=== PATIENT | female | born 1975 | race Caucasian/White ===

== ENCOUNTER → 2024-01-09 14:13 | Outpatient (REF) | payer OTHER, SELFPAY | LOC: RAD 14:13 | PROVIDERS: ATTENDING PHYSICIAN Internal Medicine; FAMILY PHYSICIAN Internal Medicine | DX: J18.9 Pneumonia, unspecified organism (principal) | CPT/HCPCS: 71046 ==

== ENCOUNTER → 2024-07-06 08:19 | Outpatient (REF) | payer OTHER, SELFPAY | LOC: HWRAD 08:19 | PROVIDERS: ATTENDING PHYSICIAN Internal Medicine; FAMILY PHYSICIAN Internal Medicine | DX: K74.60 Unspecified cirrhosis of liver (principal) | CPT/HCPCS: 76700 ==

== ENCOUNTER 2024-08-05 17:32 | Inpatient (IN) | payer OTHER, SELFPAY ==
[2024-08-05] VITALS (9 sets, daily range): BP systolic 97–120; BP diastolic 53–70; BMI 27.0; BMI 26.1
[2024-08-05 13:50] LABS: ALT (SGPT) 28 U/L (0-35); AST (SGOT) 41 U/L (14-36); Albumin 4.7 g/dl (3.5-5.0); Alkaline Phosphatase 82 U/L (38-126); Blood Urea Nitrogen 13 mg/dl (7-17); Calcium 10.1 mg/dl (8.4-10.2); Carbon Dioxide 31 mmol/L (22-30); Chloride 95 mmol/L (98-107); Estimated Creatinine Clearance 96 ml/min; Glucose 216 mg/dl (70-99); Potassium 4.1 mmol/L (3.5-5.1); Sodium 139 mmol/L (135-145); Total Bilirubin 1.3 mg/dl (0.2-1.3); Total Protein 7.9 g/dl (6.3-8.2); eGFR > 60.00
[2024-08-05 13:57] LABS: % Basophils 0.4 % (0-2); % Eosinophils 0.4 % (0-6); % Immature Granulocytes 0.2 % (0-0.5); % Lymphocytes 13.5 % (20.5-51.1); % Monocytes 5.5 % (1.7-9.3); Absolute Lymphocytes 0.6 10^3/uL (1.2-3.4); Absolute Monocytes 0.3 10^3/uL (0.1-0.6); Absolute Neutrophils 3.6 10^3/uL (1.4-6.5); Hemoglobin 12.5 g/dL (12.0-16.0); Mean Corp Hgb Conc. 32.9 g/dL (33.0-37.0); Mean Corpuscular Hgb 30.6 pg (27.0-31.0); Mean Corpuscular Volume 93.1 fL (81.0-99.0); Mean Platelet Volume 10.5 fL (7.4-10.4); Nucleated Red Blood Cells % 0 %; Platelet Count 88 10^3/uL (130-400); Red Blood Cell Count 4.08 10^6/uL (4.20-5.40); Red Cell Dist. Width 15.5 % (11.5-14.5); White Blood Cell Count 4.5 10^3/uL (4.8-10.8)
--- NOTE | 2024-08-05 14:02 | ED.GENMED ---
History of Present Illness
General
Chief Complaint: Breathing Problem
Source: patient
Exam Limitations: none
Time Seen by Provider: 08/05/24 13:28
Nursing documentation reviewed up to this point in time: agreed with
History of Present Illness
History of Present Illness:
pt i a 49 y/o F with h/o congenital heart defect s/p ASD/VSD/transposition surgery
cad with stent
pacer (v tach
restrictive lung disease on triligy and albuterol
all speciaities in [facility]
says she was on a cruise the past week
prior to the cruise she was around someone who wasn't feelin well and presumed to be covid pos
started having dyspnea and fatigue a few day ago while on the cruise
slepeing more, no energy
some fatigue in her legs with walking
cough started today, sometimes wet sometimes dry
no fever/chills/chest pain
she has some abdomial distension bu thas never been told she has ascites; but she does have liver cirrhosis
Past History
Past History
ED Past Medical History: Arrthythmia, NIDDM and Other (Transposition of the great vessels, sick sinus syndrome)
ED Past Surgical History: Cardiac
Social History
Tobacco: Non-smoker
Alcohol: None
Drug: None
Personal: Single
Living: alone
Employment: Employed
Family History
Family History: Other (Noncontributory)
Review of Systems
Review of Systems
Allergies reviewed?: Yes
All Other Systems: Not applicable
Phy Exam
Physical Exam
Physical Exam:
GENERAL: Alert , in no apparent distress
EYE: pupils equal and reactive
NECK: Supple
ENT: o/p clr, mmm.
CARDIAC: Regular rate and rhythm .
LUNGS: diminished, faint crackles bases; mild cough, tachypneic mildly
ABDOMEN: Soft, abdominal distension mildly, no r/g, no cvat, normal bowel sounds
NEUROLOGICAL: Alert and oriented, no focal neuro deficits
SKIN: Warm and dry, skin intact.
MUSCULOSKELETAL: No edema, well perfused. neg lesa's sign
PSYCH: Normal and appropriate interaction.
Scores
Heart Failure Risk
Heart Failure Risk Score: Yes
History of Stroke or TIA: No
History of intubation for respiratory distress: No
Heart rate on ED arrival >/= 110: No
SaO2 <90% on arrival on room air: Yes
HR >/=110 during 3min walk test (or too ill to perform test): Yes
ECG has acute ischemic changes: No
Urea >/=12mmol/L (BUN 33.6mg/dL): No
Serum CO2>/=35mmol/L: No
Troponin I or T elevated to AK Level (0.4mg/dL): No
NT-proBNP >/=5,000ng/L (5,000pg/ml): No
HF Risk Score: 3
Admission Status: HIGH RISK 15.9% Consider SNF treatment or admission to hospital
Course
Orders/Labs/Results
Orders:
Orders
08/05/24 12:56
Electrocardiogram (*1) Urgent
Reason for Study: Shortness of Breath
EKG- Treatment ONCE
08/05/24 13:23
CR Chest - 2 Views Urgent
Comment: hx of restrictive and obstructive lung disease
Reason For Exam: sob for past week
08/05/24 13:29
Complete Blood Count/With Diff Urgent
Comprehensive Metabolic Panel Urgent
08/05/24 13:30
NT-proBNP Urgent
Troponin I Urgent
08/05/24 13:59
Albuterol Nebs [Ventolin Nebules] 2.5 mg INH R NOW STA
08/05/24 14:21
COVID-19 Antigen Urgent
Source: Nasal Swab
Influenza A+B Rapid Molecular Urgent
CHUY Source: Nasal Swab
Specimen Description:
08/05/24 15:11
Furosemide [Lasix] 20 mg IV NOW STA
Abnormal Lab Results
08/05/24
13:29
WBC 4.5 L 10^3/uL
(4.8-10.8)
RBC 4.08 L 10^6/uL
(4.20-5.40)
MCHC 32.9 L g/dL
(33.0-37.0)
RDW 15.5 H %
(11.5-14.5)
Plt Count 88 L 10^3/uL
(130-400)
MPV 10.5 H fL
(7.4-10.4)
Absolute Lymphs (auto) 0.6 L 10^3/uL
(1.2-3.4)
Neutrophils % 80.0 H %
(42.2-75.2)
Lymphocytes % 13.5 L %
(20.5-51.1)
Chloride 95 L mmol/L
(98-107)
Carbon Dioxide 31 H mmol/L
(22-30)
Glucose 216 H mg/dl
(70-99)
AST 41 H U/L
(14-36)
08/05/24 13:29
08/05/24 13:29
Vital Signs
Initial and Last Documented VS:
Initial Vital Signs
Temp Pulse Resp BP Pulse Ox
97.7 F 86 17 110/69 92
08/05/24 13:00 08/05/24 13:00 08/05/24 13:00 08/05/24 13:00 08/05/24 13:00
Last Documented Vital Signs
Temp Pulse Resp BP Pulse Ox
97.7 F 75 17 101/57 93
08/05/24 13:00 08/05/24 15:15 08/05/24 15:15 08/05/24 15:14 08/05/24 15:15
MDM/Problems Addressed
Differential Diagnosis Includes:
chf, pneumonia, covid, less likely PE
MDM/Problems Addressed:
49-year-old female congenital heart defect status post surgery transposition of great vessels, subsequent V. tach episodes requiring a pacer,
Restrictive lung disease presents for 4 or 5 days of shortness of breath somewhat with exertion but also at rest, more sleepy than usual, feeling wiped out, a dry cough that started today. No fever or pleuritic pain. She has never had a DVT or PE.
She has had some weight gain especially in her abdomen. She does have a history of liver disease as well. Patient says that her last echo within the last year showed an EF of 50%. She is on Lasix 20 mg a did not take it today but she has
otherwise been compliant with her meds. She does have a newer diagnosis of restrictive lung disease and her PFTs have been reduced so she is on trilogy and albuterol. Patient says she has tried those meds without relief of her symptoms.
Blood pressure is in the low 100s but hypoxic on room air in the 88-89 range. She normally has a pulse ox of 92 to 93%. She was also tachypneic with diminished breath sounds but no audible wheezing. She has no edema in her legs but she does have
some abdominal fluid that looks like ascites. There is no tenderness there.
She is having a slight dry cough.
Patient is afebrile, her white count is slightly low but with a left shift, her BNP is 800 but normally lies between 2 and 300 on previous lab tests. Her chest x-ray independently reviewed by me shows bilateral interstitial pulmonary opacities
favored to represent pulmonary edema could be viral or atypical pneumonia as well.
Given her O2 requirement and elevation of her BNP it is necessary that she be admitted. I did reach out to her thermometer maker Dr. Rodriguez in [place], he is from [facility] and the number is [phone]
most recent echo april 2023:
ef 65%
rvh severely dilated rv
mild ai
mild MR
mild tr
dr zhao
[facility] transfer line if need to transfer: [phone] if needed
*Critical Care Note
Total Time (30-74mins, 75-104mins- exclusive of procedures): Not Applicable
ED Attending Note
-
Portions of this chart may have been created with voice recognition software.� Occasional wrong word or��sound alike� substitutions may have occurred due to the inherent limitations of voice recognition software.
Discharge Plan
Departure
Patient Disposition: Admit
Date of Disposition: 08/05/24
Time of Disposition: 15:20
Admit to: Telemetry
Presentation/result/management discussed w/ accepting MD/DO: Hospitalist
Condition: Fair
Covid-19: Not Applicable
Discharge Problem:
CHF (congestive heart failure)
Prescriptions:
No Action
metoprolol succinate 25 MG tablet extended release 24 hr
25 mg PO DAILY
losartan 25 mg Tablet
25 mg PO DAILY
cholecalciferol (vitamin D3) 25 mcg (1,000 unit) Tablet
25 mcg PO DAILY
Invokana 100 MG tablet
100 mg PO DAILY
spironolactone 25 mg Tablet
12.5 mg PO DAILY
furosemide [Lasix] 20 mg tablet
20 mg PO DAILY Qty: 5 0RF
sertraline 100 mg tablet
150 mg PO DAILY
Ferrex 150 Forte 150-25-1 mg-mcg-mg capsule
1 cap PO DAILY
buspirone 10 mg tablet
10 mg PO BID
Trelegy Ellipta 100-62.5-25 mcg blister with device
1 inh INHALATION R BID
Emgality Pen 120 mg/mL pen injector
120 mg SC MONTHLY
Referrals:
Jacklyn Headley MD [Family Provider] -
Interventions
Interventions:
*Risk Screen - Suicide Last Done: 08/05/24 12:59
*General Assessment Last Done: 08/05/24 12:59
*Neglect/Abuse Screening Last Done: 08/05/24 12:59
ED- Fall Risk Assessment Last Done: 08/05/24 15:20
*ED COVID-19 Vaccine History Last Done: 08/05/24 12:59
ED- Cardiac Assessment Last Done: 08/05/24 13:18
ED- Pulmonary Assessment Last Done: 08/05/24 13:18
Discharge Date and Time
Print Language: MONTSERRATIAN
[2024-08-05] MEDS: VENTOLIN NEBULES 2.5 MG INH (14:18)
[2024-08-05 14:54] LABS: COVID-19 Antigen Negative (Negative)
[2024-08-05 14:59] LABS: NT-proBNP 839 pg/ml; Troponin I < 0.012 ng/ml
[2024-08-05] MEDS: LASIX 20 MG IV ×2 (15:14→23:04)
--- NOTE | 2024-08-05 15:52 | HPS.HSE ---
Family Physician
-
Family Physician: Jacklyn Headley
Chief Complaint
-
Fatigue, occasional cough, shortness of breath, MARTIN, prior COVID exposure
History of Present Illness
49-year-old female is complaining of a occasionally productive cough with fatigue, exhaustion, dyspnea on exertion. She states on July 15, 2024 she received a COVID booster because she was leaving for a cruise on . She reports on Tuesday
she was advised by a coworker that his was COVID-positive and he was symptomatic due to them being in close proximity she took a COVID test at that time that was negative. She states however 4 days into her trip she started with a sore throat
followed by fatigue, napping all day, and even skipping her excursion while in [facility]. She states her friend who was also on the cruise with her also had URI symptoms with nasal congestion and fatigue. Neither one of them took a COVID test on the
cruise. She reports the fatigue has persisted with sleeping more. She has past medical history of congenital heart defect with transposition of vessels at [facility], history of SSS/status post pacemaker, restrictive lung disease, HTN, chronic CHF, GERD,
adrenalectomy left side secondary to pheochromocytoma, liver cirrhosis from CHF, splenomegaly, chronic thrombocytopenia, migraines, anxiety
Medical History
Past Medical History
Past Medical History: Reports Other
Additional Past Medical History:
SSS status post pacemaker Dr. Dale HILL
Restrictive lung disease
Hx transplant great vessels/CHD-mustard repair
GERD
Liver fibrosis/liver cirrhosis from CHF
Adrenalectomy left-sided secondary to pheochromocytoma
Anxiety
DM2
Migraines
Past Surgical History: Reports Other
Additional Past Surgical History:
Pacemaker�SSS
Stent in IVC, SVC,Transplant great vessels congenital heart disease ASD, VSD repair
Adrenalectomy left secondary to pheochromocytoma
Social History
Tobacco: Non-smoker
Alcohol: None
Drug: None
Personal:
Living: With Family ()
Employment: Disabled
Family History
Family History: Not pertinent
Allergies / Home Medications
Allergies reflects when Allergies were last updated in [employer].
Home Medications with original date entered in [employer]
Allergy/Medication List:
Allergies
Allergy/AdvReac Type Severity Reaction Status Date / Time
codeine Allergy Unknown Verified 08/05/24 13:00
meperidine Allergy Unknown Verified 08/05/24 13:00
pineapple [Pineapple] Allergy Unknown Verified 08/05/24 13:00
NOT.YSARPTUQB98 - Not Allergy Unknown Uncoded 08/05/24 13:00
Converted 38. See Text.
NOT.CYMJPHCFK11 - Not Allergy Unknown Uncoded 08/05/24 13:00
Converted 65. See Text.
Home Medications
metoprolol succinate 25 mg tablet,extended release 24 hr 25 mg PO HS 07/06/11
canagliflozin 100 mg tablet (Invokana) 100 mg PO DAILY 12/20/18
losartan 25 mg tablet 25 mg PO HS 12/20/18
spironolactone 25 mg tablet 12.5 mg PO HS 12/20/22
furosemide 20 mg tablet (Lasix) 20 mg PO DAILY #5 tabs 04/05/23
buspirone 10 mg tablet 10 mg PO BIDPRN PRN anxiety 08/05/24
mqabwqnplx-ohkysfirhwjyc-ffevekio 50 mg-300 mg-40 mg capsule (Fioricet) 1 cap PO Q4HPRN PRN headache 08/05/24
fluticasone fur. 100 mcg-umeclid 62.5 mcg-vilant 25 mcg inhalat.powder (Trelegy Ellipta) 1 inh inhalation R HS 08/05/24
galcanezumab-gnlm 120 mg/mL subcutaneous pen injector (Emgality Pen) 120 mg SC MONTHLY 08/05/24
iron polysacch cplx 150 mg iron-vit B12 25 mcg-folic acid 1 mg capsule (Ferrex) 1 cap PO HS 08/05/24
metformin 500 mg tablet,extended release 24 hr 500 mg PO BID 08/05/24
omeprazole 40 mg capsule,delayed release 40 mg PO BID 08/05/24
ondansetron HCl 8 mg tablet 8 mg PO BIDPRN PRN nausea/vomiting 08/05/24
oxycodone-acetaminophen 5 mg-325 mg tablet (Percocet) 1 tab PO Q6HPRN PRN moderate pain 08/05/24
sertraline 100 mg tablet 100 mg PO HS 08/05/24
sucralfate 1 gram tablet 1 g PO BIDPRN PRN stomach issues 08/05/24
Review of Systems
-
History Source: Patient and Family ( at bedside)
A 12 point ROS was completed and negative except as noted: Yes
Constitutional: Reports Fatigue; Denies Fever or Chills
EENT: Reports Sore Throat (1 week ago); Denies Runny Nose
Respiratory: Reports Cough (Occasionally productive) and Trouble Breathing (MARTIN)
Cardiac: Denies Chest Pain, Diaphoresis, Palpitations or Syncope
Abdomen/GI: Denies Abdominal Pain, Nausea, Vomiting, Diarrhea, Constipated or Bloody Stools
: Denies Dysuria, Frequency, Flank Pain, Incontinence, Difficulty Voiding or Urgency
Musculoskeletal: Denies Joint Pain or Edema
Skin: Denies Itching or Rash
Neurological: Reports Weakness (Generalized secondary to fatigue); Denies Dizzy or Headache
Endocrine: Reports No Symptoms
Hematologic/Lymphatic: Reports No Symptoms
Psych: Reports Calm
Physical Exam
Vital Signs
Vital Signs
Temp Pulse Resp BP Pulse Ox
97.7 F 75 17 101/57 93
08/05/24 13:00 08/05/24 15:15 08/05/24 15:15 08/05/24 15:14 08/05/24 15:15
Physical Exam
General: No Pain, Fever or Chills
HEENT: NormoCephalic, Anicteric, Moist mucous membranes, PERRLA, Rentz Conjunctivae, No Ptosis and Oxygen (2 L nasal cannula)
Respiratory: Clear; No Wheezes or Rales
Cardiac: S1/S2 and Regular Rhythm; No Murmur, Rub or Gallop
Breast: Deferred by me
GI: Soft, Non Tender, Non Distended and Normal Bowel Sounds
Genito-urinary: Deferred by me
Musculoskeletal: No Clubbing, No Cyanosis and No Edema
Skin: Warm and Dry; No Rash
Neuro: AO x 3, No Motor Deficits, Nonfocal/grossly intact, Cranial Nerves Intact and No Sensory Deficits; No Slurred Speech, Facial Droop, Tremors or Sedated
Psych: Calm
Laboratory Results
-
08/05/24 13:29
08/05/24 13:29
Laboratory Results
Total Bilirubin 1.3 mg/dl (0.2-1.3) 08/05/24 13:29
AST 41 U/L (14-36) H 08/05/24 13:29
ALT 28 U/L (0-35) 08/05/24 13:29
Alkaline Phosphatase 82 U/L (38-126) 08/05/24 13:29
Troponin I < 0.012 ng/ml 08/05/24 13:30
Data Reviewed
-
Diagnostic Radiology: Report Reviewed by me
Lab Data: Labs Reviewed by me
Impression/Plan
-
Impression/plan:
Admit to telemetry
#Acute hypoxic resp insuff 2/2 to pneumonia likely viral versus bacterial
Recent COVID exposure week of , *received COVID-vaccine booster on 07/15/2024*
COVID-negative
-Will check ProCal, lactic acid, sputum culture
-Check Legionella, Strep antigen
-IV Rocephin, IV Zithromax
-Tylenol as needed
-Follow CBC, BMP
Patient requesting Diflucan because she is getting antibiotics is worried about yeast infection. We advised patient we will currently hold on Diflucan we will give her some probiotics and monitor for any yeast development
CXR bilateral interstitial pulmonary opacities favored to represent pulm edema although atypical infection/viral pneumonia could be considered
Reviewed patient's CT 07/26/2023 on portal showed left lung interstitial edema with narrowing of left pleural veins history pulm stenosis cardiac fibrosis
#Hypotension/HTN
BP 101/57
Hold losartan 25 mg at bedtime, metoprolol succinate 25 mg at bedtime due to hypotension
#Hx chronic CHF
-I/O, daily weights
-Continue Lasix 20 mg daily
-Hold spironolactone
-Consult [facility] cardiology
Last echo 04/22/2023 EF 65%, stent superior system venous baffle stent in the inferior systemic venous baffle the inferior vena cava is small and collapsible suggesting inferior baffle stenosis unlikely. Pacemaker wire seen the left ventricle.
Paradoxical septal motion due to right ventricular pressure overload
#Hx transplant great vessels/CHD-mustard repair
Follows with Dr. Michael HILL
#Acute on chronic thrombocytopenia/chronic hepatic cirrhosis from CHF, chronic splenomegaly
Plt 88 appears near baseline
-Follow CBC
#SSS status post pacemaker Dr. Dale HILL
Pacemaker interrogation 80% pacing most of time otherwise no abnormalities
#Restrictive lung disease
Patient reports her typical O2 is 92-95% on room air
-Continue Trelegy Ellipta or equivalent
#DM 2
Accu-Cheks with SSI, check HgbA1c
-Hold metformin 500 mg twice daily
-Continue Invokana 100 mg daily
#GERD hx
-Continue omeprazole 40 mg twice daily, sucralfate as needed
#Adrenalectomy left-sided secondary to pheochromocytoma
#Migraine Hx-no current headache
-Patient takes Fioricet as needed, Emgality 120 mg subcu monthly taken on 07/22/2024
#Anxiety
-Continue Zoloft 100 mg at bedtime, patient has not started BuSpar 10 mg twice daily as needed yet
DVT prophylaxis
Subcu Lovenox
Full code
[2024-08-05 17:04] LABS: Lactic Acid 2.7 mmol/L (0.7-2.0)
--- NOTE | 2024-08-05 17:07 | W.PN.UPDATE ---
Update Note
Progress Note Update
This is an addendum to the H&P written by Enedelia Butler on 08/05/2024.� Patient seen and examined independently with [employer].
49-year-old female past medical history of congenital heart defect status post ASD/VSD/transposition surgery, CAD with stent, sick sinus syndrome with pacemaker, restrictive lung disease, mild asthma, anxiety/depression, migraines, diabetes,
presenting with shortness of breath, cough, fatigue, prior sore throat and prior chills.� Patient just returned from a cruise prior during which she was exposed to a coworker who's was positive for COVID.�
On examination patient has bilateral crackles at the bases.� Very minimal lower extreme edema.� Overall patient does not appear volume overloaded.� COVID is negative.� Cardiac BNP of 800.� Chest x-ray shows bilateral interstitial pulmonary opacities
possibly pulm edema versus atypical infection/viral pneumonia.
Clinically more consistent with viral/atypical pneumonia.� Check sputum culture, strep antigen, Legionella, procalcitonin.� Ceftriaxone/azithromycin.� Patient given 20 IV Lasix for pulmonary edema, resume 20 Lasix daily.� Cardiology was consulted.
[2024-08-05 17:19] LABS: Procalcitonin < 0.05 ng/ml (0.0-0.25)
--- NOTE | 2024-08-05 18:02 | CON.CAR ---
Consultation
Consultation Request
Date/Time Consultation Requested: 08/05/2024 at 1545
Date/Time Consultation Performed: 08/05/2024 at 1800
Requesting Provider: Shakila Garcia
Performing Provider: Dr. Satrhak Rodriguez
Reason for Consultation: Shortness of breath
Medical History
-
Chief Complaint: Shortness of breath, weakness
History of Present Illness:
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 She is required IVC and SVC stents for stenosis, presumably at the anastomosis with the baffles. She
has a single-chamber atrial pacemaker possibly implanted in the anatomic left atrium. She has a history of heart failure and is on furosemide 20 mg a day but has been relatively stable. She also has a history of pheochromocytoma that was resected.
She has cirrhosis. She is still employed and is . She has some memory issues. She may have had a stroke in [employer]. She recently went on a cruise and had some viral symptoms. COVID testing was negative. On the cruise she may
have increased salt intake. She has been increasingly weak and short of breath. She is followed by Dr. Gómez Hunter at [facility], . She presented to [facility] with these complaints, has a cough but no fever or chills, chest x-ray
suggested vascular congestion, pneumonia not excluded, lactic acid level was 2.7. She is on metformin. AST is 41, troponin is undetectable and proBNP is 839, baseline roughly 200. She states she had an echo within a year.
Past Medical History
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
portal thrombosis, diabetes, diabetic neuropathy,)
Past Surgical History: Cardiac (Mustard repair age 3 for transposition stents and IVC and SVC for stenosis in baffles) and Other (Pheochromocytoma resection)
Social History
Tobacco: Non-Smoker
Alcohol: None
Drug: None
Personal:
Living: With Family
Employment: Employed
Family History
Family History: Reviewed & Not Pertinent
Allergies / Home Medications
Allergy/AdvReac Type Severity Reaction Status Date / Time
codeine Allergy Unknown Verified 08/05/24 13:00
meperidine Allergy Unknown Verified 08/05/24 13:00
pineapple [Pineapple] Allergy Unknown Verified 08/05/24 13:00
NOT.[id number] - Not Allergy Unknown Uncoded 08/05/24 13:00
Converted 38. See Text.
NOT.[id number] - Not Allergy Unknown Uncoded 08/05/24 13:00
Converted 65. See Text.
�Medication �Instructions �Recorded �Confirmed �Type
metoprolol succinate 25 mg 25 mg PO HS 07/06/11 08/05/24 History
tablet,extended release 24 hr
canagliflozin 100 mg tablet 100 mg PO DAILY 12/20/18 08/05/24 History
(Invokana)
losartan 25 mg tablet 25 mg PO HS 12/20/18 08/05/24 History
spironolactone 25 mg tablet 12.5 mg PO HS 12/20/22 08/05/24 History
furosemide 20 mg tablet (Lasix) 20 mg PO DAILY #5 tabs 04/05/23 08/05/24 Rx
buspirone 10 mg tablet 10 mg PO BIDPRN PRN anxiety 08/05/24 08/05/24 History
xxigqdlcni-tuefkggziilhe-gmoaeccq 1 cap PO Q4HPRN PRN headache 08/05/24 08/05/24 History
50 mg-300 mg-40 mg capsule
(Fioricet)
fluticasone fur. 100 mcg-umeclid 1 inh inhalation R HS 08/05/24 08/05/24 History
62.5 mcg-vilant 25 mcg
inhalat.powder (Trelegy Ellipta)
galcanezumab-gnlm 120 mg/mL 120 mg SC MONTHLY 08/05/24 08/05/24 History
subcutaneous pen injector
(Emgality Pen)
iron polysacch cplx 150 mg 1 cap PO HS 08/05/24 08/05/24 History
iron-vit B12 25 mcg-folic acid 1
mg capsule (Ferrex)
metformin 500 mg tablet,extended 500 mg PO BID 08/05/24 08/05/24 History
release 24 hr
omeprazole 40 mg capsule,delayed 40 mg PO BID 08/05/24 08/05/24 History
release
ondansetron HCl 8 mg tablet 8 mg PO BIDPRN PRN nausea/vomiting 08/05/24 08/05/24 History
oxycodone-acetaminophen 5 mg-325 1 tab PO Q6HPRN PRN moderate pain 08/05/24 08/05/24 History
mg tablet (Percocet)
sertraline 100 mg tablet 100 mg PO HS 08/05/24 08/05/24 History
sucralfate 1 gram tablet 1 g PO BIDPRN PRN stomach issues 08/05/24 08/05/24 History
Review of Systems
-
All other systems: Negative unless noted
Physical Exam
Vital Signs
Temp Pulse Resp BP Pulse Ox
36.5 C 83 20 98/70 93
08/05/24 13:00 08/05/24 16:44 08/05/24 16:44 08/05/24 17:00 08/05/24 17:15
Lab Results
08/05/24 13:29
08/05/24 13:29
Troponin I < 0.012 ng/ml 08/05/24 13:30
Wzc-R-Offzctmxhba Pept 839 pg/ml 08/05/24 13:30
Physical Exam
General: No Apparent Distress
HEENT: Normocephalic
Respiratory: Other (Diminished)
Cardiac: S1/S2 and Other (No obvious murmurs, JVD not elevated, no obvious RV lift)
GI: Non Distended and Normal Bowel Sounds
Musculoskeletal: No Cyanosis and No Edema
Skin: Warm and Dry
Neuro: AO x 3 (Occasional trouble word finding)
Psych: Calm
Impression / Plan
-
Impression:
Dyspnea, presumed acute heart failure with morphologic right ventricle serving as systemic ventricle
Recent URI, COVID-negative
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
ASD/VSD/pulmonary hypertension/pulmonic stenosis by records
Pacemaker
Type 2 diabetes
Migraines
Cognitive impairment
History of stroke
Diabetic neuropathy
History of pheochromocytoma s/p resection
History of portal vein thrombosis
Hepatic fibrosis/cirrhosis?
Elevated right hemidiaphragm
SVC and IVC stents for presumed anastomotic stenosis
Plan:
She presents with what is most likely heart failure in the setting of mustard repair for transposition of the great arteries. It is conceivable she has pneumonia, but I think this may be less likely. It could be that her recent cruise with
increased salt intake is contributing as well.
She has a mild lactic acidosis, is on Invokana, also takes metformin.
We will review old records and contact her primary medical i d sales.
IV Lasix
Check echo
Metformin and Invokana on hold.
Data Reviewed
-
EKG: Tracing Personally Visualized and interpreted (Atrial paced with prolonged AV conduction, RVH, right axis deviation, ST and T wave changes)
Radiology: Image Personally Visualized and interpreted (Chest x-ray with cardiomegaly, presumed vena caval stents, single-chamber pacemaker, presumably atrial lead, vascular congestion)
Labs: Labs Reviewed by me (White count 4.5, hemoglobin 12.5, BUN and creatinine 13 and 0.7, glucose 216, proBNP 839, undetectable troponin, prior BNP 212 and 352)
Old Records: Reviewed
[2024-08-05] MEDS: ZITHROMAX INFUSION 250 IV (18:27)
--- NOTE | 2024-08-05 18:32 | PTCARENOTE ---
Pt arrived from the ER around 174. Pt ambulated into the room with steady gait. 2L O2 NC upon arrival. Pt completely alert and oriented x3. Denies any pain. Tolerating diet well. Lungs clear but diminished. Pt is SOB on exertion. Placed on tele,
hear rate regular. No edema. Pt is currently resting in bed. All needs are meet at this time. Call quintero is within reach.
[2024-08-05] MEDS: STERILE WATER FOR INJECTION 10 ML IV (22:37)
[2024-08-05] MEDS: ROCEPHIN 1000 MG IV (22:38)
[2024-08-05] MEDS: ZOLOFT 100 MG PO (22:46)
[2024-08-05] MEDS: KCL 40 MEQ PO (22:48)
[2024-08-05] MEDS: VISBIOME 1 CAP PO (22:49)
[2024-08-05] MEDS: TOPROL XL 25 MG PO (22:55)
[2024-08-05] MEDS: ALDACTONE 12.5 MG PO (23:04)
[2024-08-05] MEDS: NON-FORMULARY ITEM 1 INH INH (23:18)
--- NOTE | 2024-08-05 23:20 | PTCARENOTE ---
Dr. Randall Hunter Jig Grinder [phone]
Benjamin Mcneal Pulmonolgist [phone]
[2024-08-05] MEDS: PROTONIX 40 MG PO (23:51)
[2024-08-06] VITALS (7 sets, daily range): BP systolic 90–109; BP diastolic 48–74; PULSE 70–83; O2SAT 95–97; BMI 25.9
[2024-08-06] MEDS: LASIX 20 MG IV (08:02)
[2024-08-06] MEDS: KCL 20 MEQ PO (08:02)
[2024-08-06] MEDS: VISBIOME 2 CAP PO (08:02)
[2024-08-06] MEDS: FARXIGA 10 MG PO (08:02)
[2024-08-06] MEDS: PROTONIX 40 MG PO (08:03)
[2024-08-06 08:26] LABS: % Basophils 0.4 % (0-2); % Eosinophils 0.6 % (0-6); % Immature Granulocytes 0.2 % (0-0.5); % Monocytes 8.8 % (1.7-9.3); Absolute Lymphocytes 0.8 10^3/uL (1.2-3.4); Absolute Monocytes 0.4 10^3/uL (0.1-0.6); Absolute Neutrophils 3.4 10^3/uL (1.4-6.5); Hematocrit 34.6 % (37.0-47.0); Hemoglobin 11.7 g/dL (12.0-16.0); Mean Corp Hgb Conc. 33.8 g/dL (33.0-37.0); Mean Corpuscular Hgb 32.3 pg (27.0-31.0); Mean Corpuscular Volume 95.6 fL (81.0-99.0); Mean Platelet Volume 10.5 fL (7.4-10.4); Nucleated Red Blood Cells % 0 %; Platelet Count 69 10^3/uL (130-400); Red Blood Cell Count 3.62 10^6/uL (4.20-5.40); Red Cell Dist. Width 15.3 % (11.5-14.5); White Blood Cell Count 4.7 10^3/uL (4.8-10.8)
[2024-08-06 09:31] LABS: ALT (SGPT) 25 U/L (0-35); AST (SGOT) 37 U/L (14-36); Albumin 4.3 g/dl (3.5-5.0); Alkaline Phosphatase 73 U/L (38-126); Blood Urea Nitrogen 14 mg/dl (7-17); Calcium 9.2 mg/dl (8.4-10.2); Carbon Dioxide 26 mmol/L (22-30); Chloride 97 mmol/L (98-107); Estimated Creatinine Clearance 112 ml/min; Glucose 147 mg/dl (70-99); Potassium 4.1 mmol/L (3.5-5.1); Sodium 138 mmol/L (135-145); Total Bilirubin 1.3 mg/dl (0.2-1.3); Total Protein 7.2 g/dl (6.3-8.2); eGFR > 60.00
[2024-08-06] MEDS: TYLENOL 650 MG PO (10:02)
--- NOTE | 2024-08-06 10:38 | W.PN.HOSP.TC ---
Addendum entered and electronically signed by Kane Hu MD 08/06/24 16:04:
Seen and examined. On 3 L nasal cannula. States that she is feeling better but would like to go home. Endorses that she was working with physical therapy dropped down to 80% O2 saturations on room air. I informed her it has not safe oxygen level
for discharge. I told her how would she walk out of here she states that it would be a short distance to her car
NAD, resting comfortably in bed
Scleral anicteric
Moist mucous membranes
JVD positive
Bibasilar crackles
[id number] S1-S2 no murmurs
Soft nontender nondistended bowel sounds active
No peripheral pitting edema
Moves extremities spontaneously
AAOx3
Acute on chronic hypoxemic respiratory failure, does not use O2 at home. Suspect related to heart failure exacerbation versus multifactorial with heart failure exacerbation and acute viral syndrome. Therefore at this time IV Lasix.
COVID-negative. Supportive care in terms of viral infection. Wean O2 as tolerated to room air.
Acute on chronic HFpEF exacerbation, continue IV Lasix for at least next 24 hours. Monitor urinary output. Daily weights. Keep K greater than 4 magnesium greater than 2. Repeat 2D echo ordered to assess EF. NYHA classification 2-3.
Hypotension otherwise usually hypertensive. Hold antihypertensives at this time. Monitor mental status. Continue IV Lasix. Would apply a holding parameters
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 Will continue to monitor closely.
Lactic acidosis hold metformin and Invokana. Repeat level.
Original Note:
Today's Communication/Plan
-
Discontinued Rocephin and azithromycin as it appeared that infection was unlikely considering the low WBC and normal procalcitonin. Appreciate cards evaluation. We will continue to wean patient off of nasal cannula oxygen down to her baseline at
room air. Awaiting echocardiogram.
Assessment / Plan
Assessment / Plan
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 tach episodes requiring and a pacer. She presented to the emergency department 4 to 5 days after experiencing
shortness of breath on exertion but also at rest. She was more sleepy than usual feeling wiped out and had a dry cough that started prior to her presentation. She has never had a DVT or PE. She had some weight gain especially in her abdomen. She
has a history of liver disease as well. Her last echo showed an EF of 50%.
Assessment/Plan:
-Acute HF on Chronic HFmrEF: Stable
-ASD/VSD/pulmonary hypertension/pulmonic stenosis by record
-SVC and IVC stents for presumed anastomotic stenosis
Patient has a history of transposition of the great vessels s/p mustard atrial baffle repair
Pacemaker status
Slightly elevated proBNP
Patient currently on 3 L nasal cannula oxygen and gets fatigued quickly when she gets out of bed. She does not use oxygen supplementation normally. We will continue to try to wean her down to room air as that is her baseline.
Will get magnesium levels and continue to follow potassium. Goal potassium level greater than 4 and magnesium greater than 2.
Unable to discern I/O's as outputs were not measured today.
Weight continues to decrease and is 75.024 kg today
Continue IV Lasix for 24 hours then transition her back to her oral Lasix dose in anticipation of possible upcoming discharge
Monitor creatinine levels. Creatinine currently at 0.6 on 08/06/2024
Repeat echo ordered
Appreciate cardiology consult. They recommend that upon discharge the patient will require close monitoring with serial echoes to assess for right ventricular failure moving forward.
Recommend outpatient follow-up with cardiology
PT eval for activities of daily living
-Recent URI, COVID-Negative: Resolved
Most recent chest x-ray conducted on 08/05/2024 showed bilateral interstitial pulmonary opacities favored to represent pulmonary edema. An atypical infection/viral pneumonia could also be considered.
Discontinued Rocephin and azithromycin. Low procalcitonin and white blood cells indicates that it is unlikely that there is an infectious process occurring.
�Cognitive impairment
� History of stroke
� Type 2 diabetes -glucose was 216 on admission and is 147 on 08/06/2024
� Diabetic neuropathy
� History of pheochromocytoma s/p resection
� History of portal vein thrombosis
� Elevated right hemidiaphragm
DVT prophylaxis: Enoxaparin sodium
Ulcer prophylaxis: Pantoprazole
Full CODE STATUS
Anticipated Discharge: 24 - 48 hours
Subjective/Interval History
-
Date of Service: August 06, 2024
Met with patient at the bedside. She is calm and cooperative in discussion. Shared a brief history of her chronic medical conditions. She believes that she is at or approaching her baseline even though she continues to receive oxygen
supplementation via nasal cannula. She offers no complaints at the present time except for a mild headache for which she hopes to receive Tylenol for. She is usually able to sleep for 3 hours lying down before having to wake up and adjust position
due to breathlessness. She could not sleep on her left side as it was painful for her to try to do so. She also had neck pain that she attributes that pain to her neck position while sleeping last night.
Objective Data
-
Labs:
Laboratory Results
08/06/24
07:27
WBC 4.7 L
Hgb 11.7 L
Hct 34.6 L
Plt Count 69 L D
Sodium 138
Potassium 4.1
Chloride 97 L
Carbon Dioxide 26
BUN 14
Creatinine 0.6
Glucose 147 H
Calcium 9.2
Total Bilirubin 1.3
AST 37 H
ALT 25
Alkaline Phosphatase 73
Vital Signs:
Vital Signs
Temp Pulse Resp BP Pulse Ox
97.6 F 70 14 101/49 98
08/06/24 07:19 08/06/24 07:19 08/06/24 07:19 08/06/24 07:19 08/06/24 09:40
I&O
09/22/24 09/23/24 09/24/24
06:59 06:59 06:59
Intake Total 120 / 120
Balance 120 / 120
Review of Systems
-
History Source: Patient
All other systems: Reviewed and negative
Constitutional: Reports Other (Headache)
EENT: Reports No Symptoms Reported
Respiratory: Reports No Symptoms
Cardiac: Reports No Symptoms
Abdomen/GI: Reports No Symptoms
Breast: Reports No Symptoms
Genitourinary: Reports No Symptoms
Musculoskeletal: Reports No Symptoms
Skin: Reports No Symptoms
Neuro: Reports No Symptoms
Endocrine: Reports No Symptoms
Hematologic / Lymphatic: Reports No Symptoms
Allergy / Immunology: Reports No Symptoms
Physical Exam
-
General: Well Developed, Well Nourished, No Apparent Distress and Comfortable
HEENT: Normocephalic and Atraumatic
Respiratory: Clear to Auscultation and Non Labored Respirations
Cardiac: Regular Rhythm and S1/S2
Breast: Deferred by me
GI: Soft, Nontender, Nondistended and Normal Bowel Sounds
Musculoskeletal: No Clubbing, No Cyanosis and No Edema
Skin: Warm, Dry and Normal Turgor
Neuro: Awake, Alert, Oriented and AO x 3
Psych: Calm and Intact Judgement/Insight
--- NOTE | 2024-08-06 11:20 | W.PN.CARDCBS ---
Addendum entered and electronically signed by Sunny Gusman DO 08/06/24 12:47:
I saw and evaluated the patient. I reviewed the resident�s note and agree with findings and plan as documented in the resident�s note.
Plan:
Likely multifactorial dyspnea which may include viral illness given recent contacts.
Slightly increased pBNP on presentation and just went on a cruise.
She is clinically improved. She may be just above her dry wt. Would continue IV lasix for 24 more hrs and then likely transition to oral lasix next 24 hrs and have pt follow up with her business technology analyst as outpt
Her physiologic RV is her systemic ventricle and has previously known to be enlarged by echo here in 2007.
Cr is stable.
Requested outside records
Wean off O2.
Echo pending.
Original Note:
Today's Communication / Plan
-
Check echo
Continue Lasix
Strict I's and O's, daily weights
Wean oxygen as tolerated
Monitor creatinine while on Lasix.
Impression / Plan
-
Assessment:
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
while on cruise. Reports compliance with 20 mg Lasix, recent contacts with COVID-positive and URI positive patient's. CXR showed bilateral interstitial pulmonary opacities concerning for pulmonary edema with considerations of atypical
infection/viral pneumonia. Patient was admitted and cardiology was consulted for further evaluation and management.
Impression:
Presentation with dyspnea on exertion and b/l upper extremity swelling
Mild lactic acidosis
Recent URI, COVID-negative
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
ASD/VSD/pulmonary hypertension/pulmonic stenosis by records
Pacemaker
Type 2 diabetes
Migraines
Cognitive impairment
History of stroke
Diabetic neuropathy
History of pheochromocytoma s/p resection
History of portal vein thrombosis
Hepatic fibrosis/cirrhosis?
Elevated right hemidiaphragm
SVC and IVC stents for presumed anastomotic stenosis
Plan:
Presentation with dyspnea on exertion and bilateral mild upper extremity swelling.
-Most likely acute on chronic HFpEF due to fluid overload given no strict salt restrictions while on cruise; ProBNP 839 at presentation (212 and 352 historically).
-CXR 08/05 concerning for pulmonary edema, pneumonia less likely.
-There may be some component of RV failure which serves as patient's systemic ventricle given previous Mustard atrial baffle repair.
-Swelling improved with 20 mg IV Lasix.
-Currently on 3L O2 NC sat 98%, desaturates to 80% on exertion.
-Repeat echo.
-Continue IV Lasix at current dose.
-Follow creatinine, currently 0.6.
-Fluid restriction.
-Strict I's and O's.
-Weight trending down,78kg>>>75kg, monitor daily weights.
-Continue to wean oxygen as tolerated.
-Obtain past records from primary business technology analyst.
-Given that this patient's RV has served as systemic ventricle for 48 years, upon discharge patient requires close monitoring with serial echo to assess for RV failure moving forward.
Mild lactic acidosis
-Patient on Invokana and metformin on presentation.
-Continue to hold metformin and Invokana.
Progress Note - Associate Project Manager
Subjective
Date of Service: August 06, 2024
Patient seen and examined comfortably lying on her bed. She is currently on 3L O2 NC saturating at 98% at rest, however desaturated to 80% on exertion. She does not complain of any chest pain or significant SOB. States that she is feeling much
better than she felt when she first arrived, was not able to remove her ring from her finger initially but can do it today.
Allergies
Allergy/AdvReac Type Severity Reaction Status Date / Time
codeine Allergy Unknown Verified 08/05/24 13:00
meperidine Allergy Unknown Verified 08/05/24 13:00
pineapple [Pineapple] Allergy Unknown Verified 08/05/24 13:00
NOT.XZNCFOUXK59 - Not Allergy Unknown Uncoded 08/05/24 13:00
Converted 38. See Text.
NOT.XVTHOLOJN02 - Not Allergy Unknown Uncoded 08/05/24 13:00
Converted 65. See Text.
Home Medications
metoprolol succinate 25 mg tablet,extended release 24 hr 25 mg PO HS Blood Pressure 07/06/11
canagliflozin 100 mg tablet (Invokana) 100 mg PO DAILY Diabetes 12/20/18
losartan 25 mg tablet 25 mg PO HS Blood Pressure 12/20/18
spironolactone 25 mg tablet 12.5 mg PO HS Fluid Retention/Swelling 12/20/22
furosemide 20 mg tablet (Lasix) 20 mg PO DAILY #5 tabs 04/05/23
buspirone 10 mg tablet 10 mg PO BIDPRN PRN anxiety 08/05/24
omqjtxtwwi-tsdhwapkikmtl-jutlcmds 50 mg-300 mg-40 mg capsule (Fioricet) 1 cap PO Q4HPRN PRN headache 08/05/24
fluticasone fur. 100 mcg-umeclid 62.5 mcg-vilant 25 mcg inhalat.powder (Trelegy Ellipta) 1 inh inhalation R HS Lung/Breathing Issues 08/05/24
galcanezumab-gnlm 120 mg/mL subcutaneous pen injector (Emgality Pen) 120 mg SC MONTHLY migraine 08/05/24
iron polysacch cplx 150 mg iron-vit B12 25 mcg-folic acid 1 mg capsule (Ferrex) 1 cap PO HS Supplement 08/05/24
metformin 500 mg tablet,extended release 24 hr 500 mg PO BID Diabetes 08/05/24
omeprazole 40 mg capsule,delayed release 40 mg PO BID Gastrointestinal Issue 08/05/24
ondansetron HCl 8 mg tablet 8 mg PO BIDPRN PRN nausea/vomiting 08/05/24
oxycodone-acetaminophen 5 mg-325 mg tablet (Percocet) 1 tab PO Q6HPRN PRN moderate pain 08/05/24
sertraline 100 mg tablet 100 mg PO HS Depression 08/05/24
sucralfate 1 gram tablet 1 g PO BIDPRN PRN stomach issues 08/05/24
Objective
Labs:
08/06/24 07:27
08/06/24 07:27
Labs
Hgb 11.7 g/dL (12.0-16.0) L 08/06/24 07:27
Hct 34.6 % (37.0-47.0) L 08/06/24 07:27
Plt Count 69 10^3/uL (130-400) L D 08/06/24 07:27
Sodium 138 mmol/L (135-145) 08/06/24 07:27
Potassium 4.1 mmol/L (3.5-5.1) 08/06/24 07:27
BUN 14 mg/dl (7-17) 08/06/24 07:27
Creatinine 0.6 mg/dL (0.6-1.0) 08/06/24 07:27
Glucose 147 mg/dl (70-99) H 08/06/24 07:27
Troponins
08/05/24
13:30
Troponin I < 0.012
Vital Signs and I&O:
Vital Signs
Temp Pulse Resp BP Pulse Ox
97.6 F 70 14 101/49 98
08/06/24 07:19 08/06/24 07:19 08/06/24 07:19 08/06/24 07:19 08/06/24 09:40
Vital Signs
Temp Pulse Resp BP Pulse Ox
97.6 F 70 14 101/49 98
08/06/24 07:19 08/06/24 07:19 08/06/24 07:19 08/06/24 07:19 08/06/24 09:40
Intake & Output
08/04/24 08/05/24 08/06/24 08/07/24
06:59 06:59 06:59 06:59
Intake Total 120 / 120
Balance 120 / 120
Physical Exam
Physical Exam
General: Awake, alert and oriented x3, not in distress and holds appropriate conversation.
HEENT: No active discharge, ecchymosis or bruising, moist lips, tongue and mucous membrane.
Eyes: No discharge or red conjunctiva, no nystagmus, pupils are reactive and equal
Neck:Supple, no JVD no bruit no goiter.
Respiratory: Normal AP contour and diameter, normal chest wall movement, normal respiratory effort, no respiratory distress,
Lungs: Good air entry bilaterally, no wheezing or rhonchi, no rales or crackles
Heart: S1, S2 regular, normal rate, no added sound.
Gastrointestinal: Positive bowel sounds, soft, nontender, no guarding or rigidity or organomegaly
Extremities: No pitting edema, good peripheral pulses, good range of motion
Skin: Warm and dry, no ulceration, normal color.
Neurological: Awake, alert and oriented x3, cranial nerve II-XII grossly intact, speech clear and comprehensive, good muscle tone, normal sensory and motor function
Psychiatric: Normal mood, normal affect, normal judgement and insight and normal mentation
--- NOTE | 2024-08-06 12:06 | CM ---
Reviewed chart, met with patient to obtain information for assessment. Patient stated that she lives with her spouse in a single, two story home with two steps to enter. Patient described herself as independent with dressing, bathing, toileting, and
all other ADLs. 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 She can drive and can transport herself to her appointments and does all of her own shopping. Patient denied any DME. She is currently on o2.
Patient stated that she has never had VN services .
She has never been to a SNF.
Patient has a prescription plan and uses, [facility] in [place] for all of her medications.
Her PCP is, Jacklyn Headley.
Patient stated that she feels she is at her baseline level of functioning and would like to return home when stable. She is hoping not to have any o2 needs.
Plan: Case management will continue to follow and assist with discharge planning. Home when cleared for discharge.
--- NOTE | 2024-08-06 12:09 | PTOTSP ---
pt currently requires supervision to no assistance to complete simple ADLs, functional transfers, ambulation. issued and reviewed energy conservation handout. pt appreciative. no acute OT needs identified at this time, will sign off.
[2024-08-06] MEDS: NON-FORMULARY ITEM 1 INH INH (19:39)
[2024-08-06] MEDS: ALDACTONE 12.5 MG PO (21:18)
[2024-08-06] MEDS: ZOLOFT 100 MG PO (21:24)
[2024-08-06] MEDS: TOPROL XL 25 MG PO (21:25)
[2024-08-07 03:30] VITALS: BP 104/46
[2024-08-07 03:31] VITALS: BMI 25.9
[2024-08-07 06:58] VITALS: BP 91/45
--- NOTE | 2024-08-07 07:08 | W.PN.HOSP.TC ---
Addendum entered and electronically signed by Kane Hu MD 08/07/24 12:33:
Seen and examined. On 3 L nasal cannula. States that she is feeling better but would like to go home. Endorses that she was working with physical therapy dropped down to 80% O2 saturations on room air. I informed her it has not safe oxygen level
for discharge. I told her how would she walk out of here she states that it would be a short distance to her car
NAD, resting comfortably in bed
Scleral anicteric
Moist mucous membranes
JVD positive
Bibasilar crackles
[id number] S1-S2 no murmurs
Soft nontender nondistended bowel sounds active
No peripheral pitting edema
Moves extremities spontaneously
AAOx3
Acute on chronic hypoxemic respiratory failure, does not use O2 at home. Suspect related to heart failure exacerbation versus multifactorial with heart failure exacerbation and acute viral syndrome. Therefore at this time IV Lasix.
COVID-negative. Supportive care in terms of viral infection. Wean O2 as tolerated to room air. Check cxr and consider pulm
Acute on chronic HFpEF exacerbation, continue IV Lasix for at least next 24 hours. Monitor urinary output. Daily weights. Keep K greater than 4 magnesium greater than 2. Repeat 2D echo ordered to assess EF. NYHA classification 2-3.
Hypotension otherwise usually hypertensive. Hold antihypertensives at this time. Monitor mental status. Continue IV Lasix. Would apply a holding parameters
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 Will continue to monitor closely..
Original Note:
Today's Communication/Plan
-
Patient is currently at 95% oxygen saturation on a 2 L nasal cannula. We will continue to wean her down to room air which is her normal baseline. Patient was unable to be weaned down past 2L yesterday, will repeat CXR if patient remains hypoxic.
May consider pulmonology consult depending on x-ray results and persistent hypoxia.
Assessment / Plan
Assessment / Plan
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 tach episodes requiring and a pacer. She presented to the emergency department 4 to 5 days after experiencing
shortness of breath on exertion but also at rest. She was more sleepy than usual feeling wiped out and had a dry cough that started prior to her presentation. She has never had a DVT or PE. She had some weight gain especially in her abdomen. She
has a history of liver disease as well. Her last echo showed an EF of 50%.
Assessment/Plan:
-Acute HF on Chronic HFpEF (NYHA classification 2-3): Stable
-ASD/VSD/pulmonary hypertension/pulmonic stenosis by record
-SVC and IVC stents for presumed anastomotic stenosis
Patient has a history of transposition of the great vessels s/p mustard atrial baffle repair
Pacemaker status
Slightly elevated proBNP
Patient currently on 2 L nasal cannula oxygen and gets fatigued quickly when she gets out of bed. She does not use oxygen supplementation normally. We will continue to try to wean her down to room air as that is her baseline.
Will get magnesium levels and continue to follow potassium. Goal potassium level greater than 4 and magnesium greater than 2.
Unable to discern I/O's as outputs were not measured today.
Weight continues to decrease and is 75.024 kg today
IV Lasix was held on 08/07/2024 due to hypotension of 96/45
If patient remains hypoxic on room air we will repeat a chest x-ray and consider pulmonology consult.
Monitor creatinine levels. Creatinine currently at 0.6 on 08/07/2024
Repeat echo ordered
Appreciate cardiology consult. They recommend that upon discharge the patient will require close monitoring with serial echoes to assess for right ventricular failure moving forward.
Recommend outpatient follow-up with cardiology
PT eval for activities of daily living
-Recent URI, COVID-Negative: Resolved
Most recent chest x-ray conducted on 08/05/2024 showed bilateral interstitial pulmonary opacities favored to represent pulmonary edema. An atypical infection/viral pneumonia could also be considered.
Discontinued Rocephin and azithromycin. Low procalcitonin and white blood cells indicates that it is unlikely that there is an infectious process occurring.
�Cognitive impairment
� History of stroke
� Type 2 diabetes -glucose was 216 on admission and is 147 on 08/07/2024
� Diabetic neuropathy
Metformin and Invokana held due to lactic acidosis. Repeat level before restarting
� History of pheochromocytoma s/p resection
� History of portal vein thrombosis
� Elevated right hemidiaphragm
DVT prophylaxis: Enoxaparin sodium
Ulcer prophylaxis: Pantoprazole
Full CODE STATUS
Anticipated Discharge: 24 - 48 hours
Subjective/Interval History
-
Date of Service: August 07, 2024
Met with patient at the bedside. Overall, she is doing well and offers no complaints at the present time. She hopes to go home soon but is aware that she is not ready to leave yet as she does not require nasal cannula oxygen to go about her daily
activities.
Objective Data
-
Labs:
Labs
08/07/24 06:51
08/07/24 06:51
Vital Signs:
Vital Signs
Temp Pulse Resp BP Pulse Ox
97.7 F 72 16 91/45 95
08/07/24 06:58 08/07/24 06:58 08/07/24 06:58 08/07/24 06:58 08/07/24 06:58
I&O
08/06/24 08/07/24 08/08/24
06:59 06:59 06:59
Intake Total 120 / 120 820 / 820
Balance 120 / 120 820 / 820
Review of Systems
-
History Source: Patient
All other systems: Reviewed and negative
Constitutional: Reports No Symptoms
EENT: Reports No Symptoms Reported
Respiratory: Reports Other (Fatigue during ambulation and at rest without nasal cannula)
Cardiac: Reports No Symptoms
Abdomen/GI: Reports No Symptoms
Breast: Reports No Symptoms
Genitourinary: Reports No Symptoms
Musculoskeletal: Reports No Symptoms
Skin: Reports No Symptoms
Neuro: Reports Other (Fatigue and drowsiness while off nasal cannula)
Endocrine: Reports No Symptoms
Hematologic / Lymphatic: Reports No Symptoms
Allergy / Immunology: Reports No Symptoms
Physical Exam
-
General: Well Developed, Well Nourished, No Apparent Distress and Comfortable
HEENT: Normocephalic, Atraumatic and Moist Mucous Membranes
Respiratory: Clear to Auscultation
Cardiac: Regular Rhythm and S1/S2
GI: Soft, Nontender, Nondistended and Normal Bowel Sounds
Skin: Warm and Dry
Neuro: Awake, Alert and Oriented
Psych: Calm
[2024-08-07 07:26] LABS: % Basophils 0.2 % (0-2); % Eosinophils 1.2 % (0-6); % Immature Granulocytes 0.2 % (0-0.5); % Lymphocytes 17.8 % (20.5-51.1); % Monocytes 8.7 % (1.7-9.3); % Neutrophils 71.9 % (42.2-75.2); Absolute Eosinophils 0.1 10^3/uL (0-0.7); Absolute Lymphocytes 0.8 10^3/uL (1.2-3.4); Absolute Monocytes 0.4 10^3/uL (0.1-0.6); Absolute Neutrophils 3.1 10^3/uL (1.4-6.5); Hematocrit 34.1 % (37.0-47.0); Hemoglobin 11.3 g/dL (12.0-16.0); Mean Corp Hgb Conc. 33.1 g/dL (33.0-37.0); Mean Corpuscular Hgb 30.9 pg (27.0-31.0); Mean Corpuscular Volume 93.2 fL (81.0-99.0); Mean Platelet Volume 10.5 fL (7.4-10.4); Nucleated Red Blood Cells % 0 %; Platelet Count 79 10^3/uL (130-400); Red Blood Cell Count 3.66 10^6/uL (4.20-5.40); Red Cell Dist. Width 15.1 % (11.5-14.5); White Blood Cell Count 4.3 10^3/uL (4.8-10.8)
[2024-08-07 07:55] LABS: Lactic Acid 0.7 mmol/L (0.7-2.0)
[2024-08-07] MEDS: PROTONIX 40 MG PO (08:34)
[2024-08-07] MEDS: KCL 20 MEQ PO (08:34)
[2024-08-07] MEDS: VISBIOME 2 CAP PO (08:34)
[2024-08-07] MEDS: FARXIGA 10 MG PO (08:34)
[2024-08-07 08:36] LABS: ALT (SGPT) 25 U/L (0-35); AST (SGOT) 41 U/L (14-36); Albumin 4.2 g/dl (3.5-5.0); Alkaline Phosphatase 76 U/L (38-126); Blood Urea Nitrogen 15 mg/dl (7-17); Carbon Dioxide 31 mmol/L (22-30); Chloride 96 mmol/L (98-107); Estimated Creatinine Clearance 112 ml/min; Glucose 147 mg/dl (70-99); Potassium 4.2 mmol/L (3.5-5.1); Sodium 140 mmol/L (135-145); Total Bilirubin 1.2 mg/dl (0.2-1.3); Total Protein 7.3 g/dl (6.3-8.2); eGFR > 60.00
[2024-08-07] MEDS: TYLENOL 650 MG PO (09:05)
[2024-08-07] MEDS: LASIX IV (09:16)
--- NOTE | 2024-08-07 10:54 | W.PN.CARDCBS ---
Addendum entered and electronically signed by Sunny Gusamn DO 08/07/24 18:26:
I saw and examined the patient.
The Tooling Supervisor's note was reviewed and I agree with the note.
Comment:
Plan:
She does not appear largely volume overloaded
Echo with preserved EF
Consider pulm evaluation given known lung disease as per pt and she is now requiring O2.
Echo pending.
Transition to oral lasix. She did not get lasix this am due to hypotension but ordered for this afternoon
Discussed with nursing, family at bedside and primary service.
Original Note:
Today's Communication / Plan
-
Transition to oral Lasix
Strict I's and O's with daily weights
Wean oxygen as tolerated
Impression / Plan
-
Assessment:
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
while on cruise. Reports compliance with 20 mg Lasix, recent contacts with COVID-positive and URI positive patient's. CXR showed bilateral interstitial pulmonary opacities concerning for pulmonary edema with considerations of atypical
infection/viral pneumonia. Patient was admitted and cardiology was consulted for further evaluation and management.
Impression:
Dyspnea on exertion
upper extremity swelling resolved.
Mild lactic acidosis
Resolved
Recent URI, COVID-negative
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
ASD/VSD/pulmonary hypertension/pulmonic stenosis by records
Pacemaker
Type 2 diabetes
Migraines
Cognitive impairment
History of stroke
Diabetic neuropathy
History of pheochromocytoma s/p resection
History of portal vein thrombosis
Hepatic fibrosis/cirrhosis?
Elevated right hemidiaphragm
SVC and IVC stents for presumed anastomotic stenosis
Plan:
Dyspnea on exertion
-Likely due to HFpEF exacerbation from chronic fluid overload now worsened by acute fluid retention from increased salt intake while on cruise.
-ProBNP 839 at presentation (212 and 352 historically).
-CXR 08/05 concerning for pulmonary edema, acute viral syndrome likely an extra player.
-There may be some component of RV failure which serves as patient's systemic ventricle given previous Mustard atrial baffle repair.
-Echo pending.
-Upper extremity swelling resolved with 20 mg IV Lasix.
-Consider transitioning to 40 mg oral Lasix moving forward.
-Creatinine back to baseline.
-Strict I's and O's.
-Weight trending down,78 kg>>> 74.8 kg, monitor daily weights.
-Continue to wean oxygen as tolerated.
Mild lactic acidosis
-Resolved.
-May resume metformin and Invokana.
Progress Note - Senior Marketing Associate
Subjective
Date of Service: August 07, 2024
Patient seen and examined with family at bedside on 2L O2 NC. She reports desaturating to 80% O2 while walking with physical therapy on room air. She states she is feeling improved feeling okay while she is not doing any activities. She denies
chest pain and palpitations. She does not use oxygen at home and stated that she has never tested positive to COVID since his symptoms started.
Current medications: Lovenox 40 mg daily, IV Lasix 20 mg daily, spironolactone 12.5 mg daily, metoprolol 25 mg daily.
BP 110/53, pulse 74, respiratory 18, afebrile, O2 sat 97% on 2L O2 NC, weight 74.8 kg, trending down, patient is nonoliguric, neck exam unremarkable, lungs are clear, regular rate and rhythm without murmur, JVD, normal carotids, abdominal exam
remains benign, extremities without clubbing, cyanosis or edema, patient conversant.
Hemoglobin 11.3, platelets 79, BUN 15 and creatinine 0.6.
Objective
Labs:
08/07/24 06:51
08/07/24 06:51
Labs
Hgb 11.3 g/dL (12.0-16.0) L 08/07/24 06:51
Hct 34.1 % (37.0-47.0) L 08/07/24 06:51
Plt Count 79 10^3/uL (130-400) L 08/07/24 06:51
Sodium 140 mmol/L (135-145) 08/07/24 06:51
Potassium 4.2 mmol/L (3.5-5.1) 08/07/24 06:51
BUN 15 mg/dl (7-17) 08/07/24 06:51
Creatinine 0.6 mg/dL (0.6-1.0) 08/07/24 06:51
Glucose 147 mg/dl (70-99) H 08/07/24 06:51
Troponins
08/05/24
13:30
Troponin I < 0.012
Vital Signs and I&O:
Vital Signs
Temp Pulse Resp BP Pulse Ox
97.7 F 72 16 96/45 95
08/07/24 06:58 08/07/24 06:58 08/07/24 06:58 08/07/24 09:16 08/07/24 06:58
Vital Signs
Temp Pulse Resp BP Pulse Ox
97.7 F 72 16 96/45 95
08/07/24 06:58 08/07/24 06:58 08/07/24 06:58 08/07/24 09:16 08/07/24 06:58
Intake & Output
08/05/24 08/06/24 08/07/24 08/08/24
06:59 06:59 06:59 06:59
Intake Total 120 / 120 820 / 820
Balance 120 / 120 820 / 820
Physical Exam
Physical Exam
General: Awake, alert and oriented x3, not in distress and holds appropriate conversation.
HEENT: No active discharge, ecchymosis or bruising, moist lips, tongue and mucous membrane.
Eyes: No discharge or red conjunctiva, no nystagmus, pupils are reactive and equal
Neck:Supple, no JVD no bruit no goiter.
Respiratory: Normal AP contour and diameter, normal chest wall movement, normal respiratory effort, no respiratory distress.
Lungs: Good air entry bilaterally, no wheezing or rhonchi, no rales or crackles
Heart: S1, S2 regular, normal rate, no added sound.
Gastrointestinal: Positive bowel sounds, soft, nontender, no guarding or rigidity or organomegaly
Extremities: No pitting edema, good peripheral pulses, good range of motion
Skin: Warm and dry, no ulceration, normal color.
Neurological: Awake, alert and oriented x3, cranial nerve II-XII grossly intact, speech clear and comprehensive, good muscle tone, normal sensory and motor function
Psychiatric: Normal mood, normal affect, normal judgement and insight and normal mentation
[2024-08-07 12:05] VITALS: BP 110/53
[2024-08-07 15:19] VITALS: BP 110/63
[2024-08-07] MEDS: LASIX 20 MG PO (16:18)
[2024-08-07 19:15] VITALS: BP 108/56
[2024-08-07] MEDS: NON-FORMULARY ITEM 1 INH INH (20:01)
[2024-08-07] MEDS: TOPROL XL PO (21:59)
[2024-08-07] MEDS: ALDACTONE 12.5 MG PO (22:02)
[2024-08-07] MEDS: ZOLOFT 100 MG PO (22:02)
[2024-08-07 23:45] VITALS: BP 107/56
[2024-08-08 03:45] VITALS: BP 117/69
[2024-08-08 06:00] VITALS: BMI 25.9
[2024-08-08 06:35] LABS: % Basophils 0.2 % (0-2); % Eosinophils 0.5 % (0-6); % Immature Granulocytes 0.2 % (0-0.5); % Lymphocytes 18.3 % (20.5-51.1); % Monocytes 8.6 % (1.7-9.3); % Neutrophils 72.2 % (42.2-75.2); Absolute Lymphocytes 0.8 10^3/uL (1.2-3.4); Absolute Monocytes 0.4 10^3/uL (0.1-0.6); Hematocrit 34.2 % (37.0-47.0); Hemoglobin 11.5 g/dL (12.0-16.0); Mean Corp Hgb Conc. 33.6 g/dL (33.0-37.0); Mean Corpuscular Hgb 31.9 pg (27.0-31.0); Mean Corpuscular Volume 94.7 fL (81.0-99.0); Mean Platelet Volume 10.2 fL (7.4-10.4); Nucleated Red Blood Cells % 0 %; Platelet Count 65 10^3/uL (130-400); Red Blood Cell Count 3.61 10^6/uL (4.20-5.40); White Blood Cell Count 4.1 10^3/uL (4.8-10.8)
[2024-08-08 07:00] VITALS: BP 99/63
--- NOTE | 2024-08-08 07:07 | W.PN.HOSP.TC ---
Today's Communication/Plan
-
We continue to try to wean her down back to room air but unfortunately when removed from her 2 L nasal cannula oxygen she desaturates below 88%. Chest x-ray showed progression of pulmonary edema. Pulmonology consulted. IV Lasix replaced with 20
mg of oral Lasix.
Assessment / Plan
Assessment / Plan
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 tach episodes requiring and a pacer. She presented to the emergency department 4 to 5 days after experiencing
shortness of breath on exertion but also at rest. She was more sleepy than usual feeling wiped out and had a dry cough that started prior to her presentation. She has never had a DVT or PE. She had some weight gain especially in her abdomen. She
has a history of liver disease as well. Her last echo showed an EF of 50%.
Assessment/Plan:
-Acute HF on Chronic HFpEF (NYHA classification 2-3): Stable
-ASD/VSD/pulmonary hypertension/pulmonic stenosis by record
-SVC and IVC stents for presumed anastomotic stenosis
Patient has a history of transposition of the great vessels s/p mustard atrial baffle repair
Pacemaker status
Slightly elevated proBNP
Patient currently on 2 L nasal cannula oxygen and gets fatigued quickly when she gets out of bed. She does not use oxygen supplementation normally. We will continue to try to wean her down to room air as that is her baseline.
We conducted a ambulation test today on room air and unfortunately she consistently desaturated below 88%. She was able to complete the walk without stopping.
Pulmonology consult
Chest x-ray conducted on 08/08/2024 showed mild interval progression of pulmonary edema. Suspected small bilateral pleural effusions are unchanged.
Will get magnesium levels and continue to follow potassium. Goal potassium level greater than 4 and magnesium greater than 2. - Mg 1.9 on 08/08/24 so additional magnesium given.
Unable to discern I/O's as outputs were not measured today.
Weight continues to decrease and is 75.024 kg today
IV Lasix was held on 08/07/2024 due to hypotension of 96/45
If patient remains hypoxic on room air we will repeat a chest x-ray and consider pulmonology consult.
Monitor creatinine levels. Creatinine currently at 0.6 on 08/07/2024
Repeat echo ordered
Appreciate cardiology consult. They recommend that upon discharge the patient will require close monitoring with serial echoes to assess for right ventricular failure moving forward.
Recommend outpatient follow-up with cardiology
PT eval for activities of daily living
-Recent URI, COVID-Negative: Resolved
Most recent chest x-ray conducted on 08/05/2024 showed bilateral interstitial pulmonary opacities favored to represent pulmonary edema. An atypical infection/viral pneumonia could also be considered.
Discontinued Rocephin and azithromycin. Low procalcitonin and white blood cells indicates that it is unlikely that there is an infectious process occurring.
�Cognitive impairment
� History of stroke
� Type 2 diabetes -glucose was 216 on admission and is 147 on 08/07/2024
� Diabetic neuropathy
Metformin and Invokana held due to lactic acidosis. Repeat level before restarting
� History of pheochromocytoma s/p resection
� History of portal vein thrombosis
� Elevated right hemidiaphragm
DVT prophylaxis: Enoxaparin sodium
Ulcer prophylaxis: Pantoprazole
Full CODE STATUS
Anticipated Discharge: 24 - 48 hours
Subjective/Interval History
-
Date of Service: August 08, 2024
Met with patient at the bedside. She is calm and cooperative in discussion and hopes to be discharged soon but understands that as long as she is unable to maintain proper oxygen saturation - that it would be unwise for her to go home. Ambulation
test conducted on room air showed consistent desaturation below 88% but the patient was able to ambulate without stopping.
Objective Data
-
Labs:
Laboratory Results
08/08/24
06:19
WBC 4.1 L
Hgb 11.5 L
Hct 34.2 L
Plt Count 65 L
Sodium Pending
Potassium Pending
Chloride Pending
Carbon Dioxide Pending
BUN Pending
Creatinine Pending
Glucose Pending
Calcium Pending
Total Bilirubin Pending
AST Pending
ALT Pending
Alkaline Phosphatase Pending
Vital Signs:
Vital Signs
Temp Pulse Resp BP Pulse Ox
97.6 F 74 17 117/69 93
08/08/24 03:45 08/08/24 03:45 08/08/24 03:45 08/08/24 03:45 08/08/24 03:45
I&O
08/07/24 08/08/24 08/09/24
06:59 06:59 06:59
Intake Total 820 / 820 960 / 960
Balance 820 / 820 960 / 960
Review of Systems
-
History Source: Patient
Constitutional: Reports No Symptoms
EENT: Reports No Symptoms Reported
Respiratory: Reports No Symptoms
Cardiac: Reports No Symptoms
Abdomen/GI: Reports No Symptoms
Breast: Reports No Symptoms
Genitourinary: Reports No Symptoms
Musculoskeletal: Reports No Symptoms
Skin: Reports No Symptoms
Neuro: Reports No Symptoms
Endocrine: Reports No Symptoms
Hematologic / Lymphatic: Reports No Symptoms
Physical Exam
-
General: Well Developed, Well Nourished, No Apparent Distress and Comfortable
HEENT: Normocephalic, Atraumatic and Moist Mucous Membranes
Respiratory: Clear to Auscultation
Cardiac: Regular Rhythm and S1/S2
Breast: Deferred by me
GI: Soft, Nontender, Nondistended and Normal Bowel Sounds
Genito-urinary: Deferred by me
Musculoskeletal: No Clubbing, No Cyanosis and No Edema
Skin: Warm and Dry
Neuro: Awake, Alert, Oriented and AO x 3
Psych: Calm
[2024-08-08 07:08] LABS: ALT (SGPT) 25 U/L (0-35); AST (SGOT) 37 U/L (14-36); Albumin 4.2 g/dl (3.5-5.0); Alkaline Phosphatase 87 U/L (38-126); Blood Urea Nitrogen 13 mg/dl (7-17); Calcium 8.9 mg/dl (8.4-10.2); Carbon Dioxide 32 mmol/L (22-30); Chloride 97 mmol/L (98-107); Estimated Creatinine Clearance 112 ml/min; Glucose 141 mg/dl (70-99); Magnesium 1.9 mg/dl (1.6-2.3); Sodium 140 mmol/L (135-145); Total Bilirubin 1.3 mg/dl (0.2-1.3); Total Protein 7.4 g/dl (6.3-8.2); eGFR > 60.00
[2024-08-08] MEDS: LASIX 20 MG PO (09:03)
--- NOTE | 2024-08-08 09:03 | W.PN.CARDCBS ---
Addendum entered and electronically signed by Júnior Jha MD 08/08/24 14:42:
I saw and evaluated the patient. I reviewed the resident�s note and agree with findings and plan as documented in the resident�s note.
Briefly, 49-year-old woman past medical history of congenital heart disease with transposition of the great vessels status post mustard procedure who presents with dyspnea and edema concerning for decompensated heart failure
No cardiovascular complaints at present, no significant dyspnea
With gentle IV diuresis has noted improvement in her edema
Overall appears to be relatively well compensated on exam however, she is still requiring supplemental oxygen today
Weight is still at the upper end of what she considers her dry weight (155-165lbs), 165 lbs today
Renal function stable
Would recommend additional IV Lasix dose today and wean oxygen as able
Tentative plan to transition to higher dose of oral Lasix tomorrow, would discharge on 40 mg daily
Cont home spironolactone and SGLT2
Rest per Dr. Zeng
Original Note:
Today's Communication / Plan
-
IV Lasix once
Continue oral Lasix
Wean off oxygen as tolerated
Impression / Plan
-
Assessment:
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
while on [place]. Reports compliance with 20 mg Lasix, recent contacts with COVID-positive and URI positive patient's. CXR showed bilateral interstitial pulmonary opacities concerning for pulmonary edema with considerations of atypical
infection/viral pneumonia. Patient was admitted and cardiology was consulted for further evaluation and management.
Impression:
Dyspnea on exertion
upper extremity swelling resolved.
Mild lactic acidosis
Resolved
Recent URI, COVID-negative
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
ASD/VSD/pulmonary hypertension/pulmonic stenosis by records
Pacemaker
Type 2 diabetes
Migraines
Cognitive impairment
History of stroke
Diabetic neuropathy
History of pheochromocytoma s/p resection
History of portal vein thrombosis
Hepatic fibrosis/cirrhosis?
Elevated right hemidiaphragm
SVC and IVC stents for presumed anastomotic stenosis
Plan:
Dyspnea on exertion
-Subjectively, she does not look volume overloaded. However, her CXR is suspicious for bilateral pleural effusions and pulmonary edema. Her recent echo also shows enlarged and hypertrophied systemic ventricle (RV) with moderately increased
pulmonary pressures compared to previous echo 04/21/2023. Her proBNP is slightly elevated at 839 from historic baseline 352.
-Symptoms most likely due to HFpEF exacerbation from chronic fluid overload now worsened by acute fluid retention from increased salt intake while on cruise.
-Currently on 1.5L O2 NC saturating at 96%.
-Reports baseline weight 70 to 75 kg; patient currently around baseline weight.
-Creatinine 0.6, will give 1 dose of IV Lasix 20 mg. Continue p.o. Lasix 20 mg.
-Wean off oxygen as tolerated, if patient is able to be weaned off, she could be discharged on 20 mg p.o. with instruction to take extra dose if daily weight increase by 3 LB or weekly with increased by 5 LB.
Data:
CXR 08/08/2024:
Mild interval progression of pulmonary edema. Suspected small bilateral pleural effusions are unchanged.
CXR 08/05/2024:
Bilateral interstitial pulmonary opacities favored to represent pulmonary edema. An atypical infection/viral pneumonia could also be considered.
Echo 08/07/2024:
The left ventricle is sub pulmonic, and dilated. There is mild left ventricular hypertrophy with a pacing wire. LVEF is 60-65%. Paradoxical septal motion is present. Diastolic function indeterminate. Right ventricular hypertrophy. Enlarged right
ventricular size. Preserved right ventricular function. The right ventricle is systemic.Mildly dilated right atrium. No mitral regurgitation. Mitral valve is sub pulmonary. There is no aortic stenosis. Trace aortic regurgitation is seen. The aortic
valve arises anteriorly from the systemic right ventricle. Moderate tricuspid regurgitation. Estimated pulmonary artery pressure of 75-80 mmHg assuming a right atrial pressure of 3 mmHg. The tricuspid valve is
systemic. No evidence of flow acceleration within the pulmonary venous baffle. There is a stent in the superior systemic venous baffle. There is a stent in the inferior systemic venous baffle also. No obvious baffle leak is seen on color Doppler.
Compared to previous echo 04/21/23, the pulmonary artery pressures have increased from 55 to 75 mmHg. Otherwise no significant change.
Progress Note - Telegrapher Agent
Subjective
Date of Service: August 08, 2024
Patient seen and examined, in no acute cardiopulmonary distress. Reports being winded on ambulation while off oxygen. Discussed with patient that we will try to wean her off oxygen before she leaves the hospital. Will give 1 extra dose of 20 mg
IV Lasix and continue 20 mg p.o. Lasix.
Objective
Labs:
08/08/24 06:19
08/08/24 06:19
Labs
Hgb 11.5 g/dL (12.0-16.0) L 08/08/24 06:19
Hct 34.2 % (37.0-47.0) L 08/08/24 06:19
Plt Count 65 10^3/uL (130-400) L 08/08/24 06:19
Sodium 140 mmol/L (135-145) 08/08/24 06:19
Potassium 4.0 mmol/L (3.5-5.1) 08/08/24 06:19
BUN 13 mg/dl (7-17) 08/08/24 06:19
Creatinine 0.6 mg/dL (0.6-1.0) 08/08/24 06:19
Glucose 141 mg/dl (70-99) H 08/08/24 06:19
Troponins
08/05/24
13:30
Troponin I < 0.012
Vital Signs and I&O:
Vital Signs
Temp Pulse Resp BP Pulse Ox
98.0 F 70 16 99/63 96
08/08/24 07:00 08/08/24 07:00 08/08/24 07:00 08/08/24 07:00 08/08/24 07:00
Vital Signs
Temp Pulse Resp BP Pulse Ox
98.0 F 70 16 99/63 96
08/08/24 07:00 08/08/24 07:00 08/08/24 07:00 08/08/24 07:00 08/08/24 07:00
Intake & Output
08/06/24 08/07/24 08/08/24 08/09/24
06:59 06:59 06:59 06:59
Intake Total 120 / 120 820 / 820 960 / 960
Balance 120 / 120 820 / 820 960 / 960
Physical Exam
Physical Exam
General: Awake, alert and oriented x3, not in distress and holds appropriate conversation.
HEENT: No active discharge, ecchymosis or bruising, moist lips, tongue and mucous membrane.
Eyes: No discharge or red conjunctiva, no nystagmus, pupils are reactive and equal
Neck:Supple, no JVD no bruit no goiter.
Respiratory: Normal AP contour and diameter, normal chest wall movement, normal respiratory effort, no respiratory distress.
Lungs: Good air entry bilaterally, no wheezing or rhonchi, no rales or crackles
Heart: S1, S2 regular, normal rate, no added sound.
Gastrointestinal: Positive bowel sounds, soft, nontender, no guarding or rigidity or organomegaly
Extremities: No pitting edema, good peripheral pulses, good range of motion
Skin: Warm and dry, no ulceration, normal color.
Neurological: Awake, alert and oriented x3, cranial nerve II-XII grossly intact, speech clear and comprehensive, good muscle tone, normal sensory and motor function
Psychiatric: Normal mood, normal affect, normal judgement and insight and normal mentation
[2024-08-08] MEDS: FARXIGA 10 MG PO (09:07)
[2024-08-08] MEDS: VISBIOME 2 CAP PO (09:07)
[2024-08-08] MEDS: PROTONIX 40 MG PO (09:07)
[2024-08-08] MEDS: KCL 20 MEQ PO (09:08)
[2024-08-08 11:00] VITALS: BP 118/66; BP 120/73; PULSE 79; O2SAT 96
--- NOTE | 2024-08-08 11:17 | CON.PUL ---
Consultation
Consultation Request
Date/Time Consultation Requested: 08/08/24
Date/Time Consultation Performed: 08/08/24
Performing Provider: Tray
Reason for Consultation: SOB
Medical History
-
History of Present Illness:
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
productive cough, fatigue, exhaustion, dyspnea on exertion. This may have been triggered by recent episode of COVID-positive illness but she self tested at home and was negative. She has noticed more persistent fatigue and has been sleeping more.
She follows with pulmonary at [facility] since childhood. 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 She has not previously required oxygen in the past, but she has noted occasional
desaturation with exertion. She is currently maintained on Trelegy and albuterol rescue inhaler. Last PFT reviewed was in June 2023 with moderate to severe restrictive lung disease (TLC 61%) and moderate diffusion impairment (DLCO 48%). She was
due to follow-up this coming August.
.
Past Medical History
Past Medical History: Other (see list below)
Social History
Tobacco: Non-smoker
Alcohol: None
Drug: None
Family History
Family History: Reviewed & Not Pertinent
Allergies / Home Medications
Allergies
Allergy/AdvReac Type Severity Reaction Status Date / Time
codeine Allergy Unknown Verified 08/05/24 13:00
meperidine Allergy Unknown Verified 08/05/24 13:00
pineapple [Pineapple] Allergy Unknown Verified 08/05/24 13:00
NOT.[id number] - Not Allergy Unknown Uncoded 08/05/24 13:00
Converted 38. See Text.
NOT.[id number] - Not Allergy Unknown Uncoded 08/05/24 13:00
Converted 65. See Text.
Home Medications
�Medication �Instructions �Recorded �Confirmed �Last Taken �Type
metoprolol succinate 25 mg 25 mg PO HS Blood Pressure 07/06/11 08/05/24 08/04/24 History
tablet,extended release 24 hr
canagliflozin 100 mg tablet 100 mg PO DAILY Diabetes 12/20/18 08/05/24 08/04/24 History
(Invokana)
losartan 25 mg tablet 25 mg PO HS Blood Pressure 12/20/18 08/05/24 08/04/24 History
spironolactone 25 mg tablet 12.5 mg PO HS Fluid 12/20/22 08/05/24 08/04/24 History
Retention/Swelling
furosemide 20 mg tablet (Lasix) 20 mg PO DAILY #5 tabs 04/05/23 08/05/24 08/04/24 Rx
buspirone 10 mg tablet 10 mg PO BIDPRN PRN anxiety 08/05/24 08/05/24 Unknown History
vvoorkfmnr-bvxfzkkxgppds-tekwcccm 1 cap PO Q4HPRN PRN headache 08/05/24 08/05/24 Unknown History
50 mg-300 mg-40 mg capsule
(Fioricet)
fluticasone fur. 100 mcg-umeclid 1 inh inhalation R HS 08/05/24 08/05/24 08/04/24 History
62.5 mcg-vilant 25 mcg Lung/Breathing Issues
inhalat.powder (Trelegy Ellipta)
galcanezumab-gnlm 120 mg/mL 120 mg SC MONTHLY migraine 08/05/24 08/05/24 07/22/24 History
subcutaneous pen injector
(Emgality Pen)
iron polysacch cplx 150 mg 1 cap PO HS Supplement 08/05/24 08/05/24 08/04/24 History
iron-vit B12 25 mcg-folic acid 1
mg capsule (Ferrex)
metformin 500 mg tablet,extended 500 mg PO BID Diabetes 08/05/24 08/05/24 08/04/24 History
release 24 hr
omeprazole 40 mg capsule,delayed 40 mg PO BID Gastrointestinal Issue 08/05/24 08/05/2424 History
release
ondansetron HCl 8 mg tablet 8 mg PO BIDPRN PRN nausea/vomiting 08/05/24 08/05/24 Unknown History
oxycodone-acetaminophen 5 mg-325 1 tab PO Q6HPRN PRN moderate pain 08/05/24 08/05/24 Unknown History
mg tablet (Percocet)
sertraline 100 mg tablet 100 mg PO HS Depression 08/05/24 08/05/24 08/04/24 History
sucralfate 1 gram tablet 1 g PO BIDPRN PRN stomach issues 08/05/24 08/05/24 Unknown History
Review of Systems
-
History Source: Patient
All other systems: Negative unless noted
Vitals / Labs / Diagnostic Testing
Vital Signs
Temp Pulse Resp BP Pulse Ox
98.0 F 71 16 105/54 96
08/08/24 07:00 08/08/24 09:03 08/08/24 07:00 08/08/24 09:03 08/08/24 07:00
Lab Data
08/08/24 06:19
08/08/24 06:19
Microbiology
08/05/24 17:31 Urine Legionella Urinary Antigen - Final
Negative for Legionella pneumophila Serogroup 1 antigen.
A negative result does not rule out the possiblity of
Legionella infection due to other serogroups or species of
Legionella. Clinical correlation is recommended.
08/05/24 17:31 Urine Streptococcus pneumoniae Antigen (M - Final
Negative for Streptococcus pneumoniae antigen.
A negative result does not exclude infection with
Streptococcus pneumoniae. Clinical correlation is
recommended.
08/05/24 14:21 Nasal Swab Influenza Types A & B ([facility]AN[facility]) - Final
Negative for Influenza A & B, NAAT
Negative results must be combined with clinical observations
and patient history.
Nucleic Acid Amplification test (NAAT)performed on the
[employer] platform.
Diagnostic Testing:
Physical Exam
-
HEENT: Normocephalic, Anicteric and Moist Mucous Membranes
Cardiovascular: S1/S2 and Regular Rhythm
Respiratory: Clear (overall decreased) and Non-Labored Respirations
GI: Soft, Non Distended and Non Tender
Neurology: Awake, Alert, Oriented and No Motor Deficits
Skin: Warm, Dry and Good Color
General: Comfortable and Other (NAD)
Assessment
-
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
productive cough, fatigue, exhaustion, dyspnea on exertion. This may have been triggered by recent episode of COVID-positive illness but she self tested at home and was negative. She has noticed more persistent fatigue and has been sleeping more.
We are consulted for evaluation.
Dyspnea on exertion, acute on chronic
Exertional Hypoxemia
Fatigue/EDS
Mild lactic acidosis
Recent URI, COVID-negative
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
ASD/VSD/pulmonary hypertension/pulmonic stenosis by records
s/p Pacemaker
Type 2 diabetes
Migraines
Cognitive impairment
History of stroke
Diabetic neuropathy
History of pheochromocytoma s/p resection
History of portal vein thrombosis
Hepatic fibrosis/cirrhosis?
Chronic elevated right hemidiaphragm
SVC and IVC stents for presumed anastomotic stenosis
Plan
No oxygen was needed on admission, currently saturating 96% on RA
There is note of desaturation with ambulation which is relatively new
Home O2 evaluation eventually
Prior history of lung disease is noted--
She follows with pulmonary at [facility] since childhood.
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
She has not previously required oxygen in the past, but she has noted occasional desaturation with exertion.
She is currently maintained on Trelegy and albuterol rescue inhaler.
Last PFT reviewed was in June 2023 with moderate to severe restrictive lung disease (TLC 61%) and moderate diffusion impairment (DLCO 48%)
Suspect patient has acute on chronic dyspnea from RLD
Prior testing was moderately severe, we will repeat PFT while inpatient, last testing >1 year ago
She has numerous reasons for restriction including kyphosis, enlarged heart, chronic elevation of RHD
We discussed management including rehab, PAP therapy if needed
Given her EDS/fatigue, outpatient sleep study would be warranted which she can have done in [place]
CXR/CT obtained indicating very restricted appearing lungs but no acute findings
Other imaging reviewed
ECHO results reviewed with enlarged RV size/pulmonary hypertension is noted
Defer to care team in [place] for further management
Will need outpatient pulmonary evaluation at [facility] for next steps at discharge
Reviewed with patient
Risk factors assessed for underlying sleep disordered breathing also noted, recommend outpatient PSG/sleep evaluation
We will follow
Diagnostic Data
CXR 08/08/24 - Mild interval progression of pulmonary edema. Suspected small bilateral pleural effusions are unchanged.
CT CAP 09/22/21- No acute posttraumatic abnormality seen throughout the chest, abdomen and pelvis. Postprocedural corrective changes in the chest correlating with given history of transposition of the great vessels. Microlobulated appearance of the
liver and mild splenomegaly suggesting cirrhotic morphology. Small left ovarian cysts, as described.
There is some mild bibasilar subsegmental atelectasis. There is no pneumothorax, pleural effusion or pericardial effusion. Moderate elevation of the right hemidiaphragm is stable.
ECHO 08/07/24- The left ventricle is sub pulmonic, and dilated. There is mild left ventricular hypertrophy with a pacing wire. LVEF is 60-65%. Paradoxical septal motion is present. Diastolic function indeterminate. Right ventricular hypertrophy.
Enlarged right ventricular size. Preserved right ventricular function. The right ventricle is systemic. Mildly dilated right atrium. No mitral regurgitation. Mitral valve is sub pulmonary. There is no aortic stenosis. Trace aortic regurgitation is
seen. The aortic valve arises anteriorly from the systemic right ventricle. Moderate tricuspid regurgitation. Estimated pulmonary artery pressure of 75-80 mmHg assuming a right atrial pressure of 3 mmHg. The tricuspid valve is systemic. No
evidence of flow acceleration within the pulmonary venous baffle. There is a stent in the superior systemic venous baffle. There is a stent in the inferior systemic venous baffle also. No obvious baffle leak is seen on color Doppler. Compared to
previous echo 04/21/23, the pulmonary artery pressures have increased from 55 to 75 mmHg. Otherwise no significant change.
PFT's: as above
Reports and relevant images were personally reviewed.
Total time spent on this consultation __78__ includes review of history, physical exam, medications, laboratory data, personal review of imaging, extensive review of outpatient records, discussion with care team and respiratory therapy.
--- NOTE | 2024-08-08 11:27 | CM ---
Reviewed chart and spoke with [employer], Patient doing well on room air. Will not need it at discharge.
Plan: Case management will continue to follow and assist with discharge planning. Home when stable.
--- NOTE | 2024-08-08 11:42 | PTOTSP ---
Pt is able to ambulate independently without need for any assistive devices. Anticipate pt returning home when medically stable. PT will sign off.
[2024-08-08] MEDS: LASIX 20 MG IV (12:38)
[2024-08-08] MEDS: MAGONATE 86 MG PO (12:39)
[2024-08-08 15:00] VITALS: BP 110/52
--- NOTE | 2024-08-08 15:36 | W.PN.UPDATE ---
Addendum entered and electronically signed by Kane Hu MD 08/09/24 13:47:
gus not thave a history of chronic hypoxemia.
correct diagnosis should be acute hypoxic respiratory fialure secondary to chronic hf and restrictive lung disease.
-this was evident on examination as o2 sats dropped to mid's 80 when off o2.
Original Note:
Update Note
Progress Note Update
Seen and examined. On 3 L nasal cannula. States that she is feeling better but would like to go home. Endorses that she was working with physical therapy dropped down to 80% O2 saturations on room air. I informed her it has not safe oxygen level
for discharge. I told her how would she walk out of here she states that it would be a short distance to her car
NAD, resting comfortably in bed
Scleral anicteric
Moist mucous membranes
JVD positive
Bibasilar crackles
[id number] S1-S2 no murmurs
Soft nontender nondistended bowel sounds active
No peripheral pitting edema
Moves extremities spontaneously
AAOx3
Acute on chronic hypoxemic respiratory failure, does not use O2 at home. Suspect related to heart failure exacerbation versus multifactorial with heart failure exacerbation and acute viral syndrome. Therefore at this time IV Lasix.
COVID-negative. Supportive care in terms of viral infection. Wean O2 as tolerated to room air. Pulm consult. Iv lasix.
-I personally, ambulated Ms. Zazueta today. O2 sat dropped to the Mid 80s. Awaiting pulm recs
Acute on chronic HFpEF exacerbation, continue IV Lasix for at least next 24 hours. Monitor urinary output. Daily weights. Keep K greater than 4 magnesium greater than 2. Repeat 2D echo ordered to assess EF. NYHA classification 2-3.
Hypotension otherwise usually hypertensive. Hold antihypertensives at this time. Monitor mental status. Continue IV Lasix. Would apply a holding parameters
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 Will continue to monitor closely.
[2024-08-08] MEDS: NON-FORMULARY ITEM 1 INH INH (19:15)
[2024-08-08 19:27] VITALS: BP 98/60
[2024-08-08] MEDS: ZOLOFT 100 MG PO (21:51)
[2024-08-08] MEDS: ALDACTONE 12.5 MG PO (21:51)
[2024-08-08] MEDS: TOPROL XL PO (21:51)
[2024-08-08 22:46] VITALS: BP 106/59
[2024-08-09 03:05] VITALS: BP 110/66
[2024-08-09 06:00] VITALS: BMI 25.4
[2024-08-09] MEDS: TOPROL XL PO (06:50)
[2024-08-09 07:00] VITALS: BP 106/50
--- NOTE | 2024-08-09 07:10 | W.PN.HOSP.TC ---
Addendum entered and electronically signed by Kane Hu MD 08/09/24 11:38:
>32mins to prep and discuss dc.
will need home o2 assessment
pft's completed
feeling much better. off o2 at rest. feels sob, dizzy with ambulation. this is likely related ot restrictive lung disease hx.
Original Note:
Today's Communication/Plan
-
Will do another ambulation test today. Ordered home oxygen eval due to possibility of need for home oxygen. This may be the patients new baseline, we will consider moving forward with discharge planning if the patient's condition remains stable
and is cleared by pulmonology to be followed in the outpatient setting.
Assessment / Plan
Assessment / Plan
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 tach episodes requiring and a pacer. She presented to the emergency department 4 to 5 days after experiencing
shortness of breath on exertion but also at rest. She was more sleepy than usual feeling wiped out and had a dry cough that started prior to her presentation. She has never had a DVT or PE. She had some weight gain especially in her abdomen. She
has a history of liver disease as well. Her last echo showed an EF of 50%.
Assessment/Plan:
-Acute HF on Chronic HFpEF (NYHA classification 2-3): Stable
-ASD/VSD/pulmonary hypertension/pulmonic stenosis by record
-SVC and IVC stents for presumed anastomotic stenosis
Patient has a history of transposition of the great vessels s/p mustard atrial baffle repair
Pacemaker status
Slightly elevated proBNP
Patient currently on 2 L nasal cannula oxygen and gets fatigued quickly when she gets out of bed. She does not use oxygen supplementation normally. Home O2 eval ordered as this patient would likely need it in the outpatient setting
We conducted a ambulation test today on room air and unfortunately she consistently desaturated below 88%. She was able to complete the walk without stopping.
Appreciate pulmonology consult
Chest x-ray conducted on 08/08/2024 showed mild interval progression of pulmonary edema. Suspected small bilateral pleural effusions are unchanged.
Will get magnesium levels and continue to follow potassium. Goal potassium level greater than 4 and magnesium greater than 2. - Mg 1.9 on 08/08/24 so additional magnesium given.
Unable to discern I/O's as outputs were not measured today.
Weight continues to decrease and is 75.024 kg today
Patient is currently on 40 mg oral Lasix
Monitor creatinine levels. Creatinine currently at 0.7 on 08/09/2024
Repeat echo ordered - no acute findings
Appreciate cardiology consult. They recommend that upon discharge the patient will require close monitoring with serial echoes to assess for right ventricular failure moving forward.
Recommend outpatient follow-up with cardiology
PT eval for activities of daily living
-Recent URI, COVID-Negative: Resolved
Most recent chest x-ray conducted on 08/05/2024 showed bilateral interstitial pulmonary opacities favored to represent pulmonary edema. An atypical infection/viral pneumonia could also be considered.
Discontinued Rocephin and azithromycin. Low procalcitonin and white blood cells indicates that it is unlikely that there is an infectious process occurring.
�Cognitive impairment
� History of stroke
� Type 2 diabetes -glucose was 216 on admission and is 147 on 08/07/2024
� Diabetic neuropathy
Metformin and Invokana held due to lactic acidosis. Repeat level before restarting
� History of pheochromocytoma s/p resection
� History of portal vein thrombosis
� Elevated right hemidiaphragm
DVT prophylaxis: Enoxaparin sodium
Ulcer prophylaxis: Pantoprazole
Full CODE STATUS
Anticipated Discharge: Within 24 hours
Subjective/Interval History
-
Date of Service: August 09, 2024
Met with the patient at the bedside. Overall, she believes that she is at or near her baseline and would like to be discharged in the near future. Patient is pleased with herself after finding out that she lost weight during the course of her
hospital stay. We had a discussion with the patient about the likely need for home oxygen supplementation at this point. Home O2 eval ordered.
Objective Data
-
Labs:
Laboratory Results
08/09/24
07:06
WBC Pending
Hgb Pending
Hct Pending
Plt Count Pending
Sodium Pending
Potassium Pending
Chloride Pending
Carbon Dioxide Pending
BUN Pending
Creatinine Pending
Glucose Pending
Calcium Pending
Total Bilirubin Pending
AST Pending
ALT Pending
Alkaline Phosphatase Pending
Vital Signs:
Vital Signs
Temp Pulse Resp BP Pulse Ox
98.0 F 82 16 110/66 94
08/09/24 03:05 08/09/24 03:05 08/09/24 03:05 08/09/24 03:05 08/09/24 03:05
I&O
08/08/24 08/09/24 08/10/24
06:59 06:59 06:59
Intake Total 960 / 960 1320 / 1320
Balance 960 / 960 1320 / 1320
Review of Systems
-
History Source: Patient
Constitutional: Reports No Symptoms
EENT: Reports No Symptoms Reported
Respiratory: Reports No Symptoms
Cardiac: Reports No Symptoms
Abdomen/GI: Reports No Symptoms
Breast: Reports No Symptoms
Genitourinary: Reports No Symptoms
Musculoskeletal: Reports No Symptoms
Skin: Reports No Symptoms
Neuro: Reports No Symptoms
Endocrine: Reports No Symptoms
Hematologic / Lymphatic: Reports No Symptoms
Physical Exam
-
General: Well Developed, Well Nourished and No Apparent Distress
HEENT: Normocephalic, Atraumatic and Moist Mucous Membranes
Respiratory: Clear to Auscultation
Cardiac: Regular Rhythm, S1/S2 and Irregular Rhythm
Breast: Deferred by me
GI: Soft, Nontender, Nondistended and Normal Bowel Sounds
Rectal: Deferred by Provider
Genito-urinary: Deferred by me
Skin: Warm and Dry
Neuro: Awake, Alert, Oriented and AO x 3
Psych: Calm
[2024-08-09 07:58] LABS: Hematocrit 35.1 % (37.0-47.0); Mean Corp Hgb Conc. 34.2 g/dL (33.0-37.0); Mean Corpuscular Hgb 31.1 pg (27.0-31.0); Mean Corpuscular Volume 90.9 fL (81.0-99.0); Mean Platelet Volume 10.4 fL (7.4-10.4); Platelet Count 75 10^3/uL (130-400); Red Blood Cell Count 3.86 10^6/uL (4.20-5.40); Red Cell Dist. Width 14.7 % (11.5-14.5); White Blood Cell Count 3.9 10^3/uL (4.8-10.8)
--- NOTE | 2024-08-09 08:12 | RESPNOTE ---
SpO2 on 1L- 96%
post exertion:
SpO2 on RA ( on finger c/ acrylic)- 88%
SpO2 on RA ( on ear) - 90-92%
SPO2 on RA (toe) - 91%
HR 80- correlates on all appendages
[2024-08-09] MEDS: PROTONIX 40 MG PO (08:35)
[2024-08-09] MEDS: FARXIGA 10 MG PO (08:35)
[2024-08-09] MEDS: KCL 20 MEQ PO (08:35)
[2024-08-09] MEDS: LASIX 40 MG PO (08:35)
[2024-08-09] MEDS: VISBIOME 2 CAP PO (08:35)
[2024-08-09 08:55] LABS: ALT (SGPT) 26 U/L (0-35); AST (SGOT) 41 U/L (14-36); Albumin 4.4 g/dl (3.5-5.0); Alkaline Phosphatase 81 U/L (38-126); Blood Urea Nitrogen 17 mg/dl (7-17); Calcium 9.2 mg/dl (8.4-10.2); Carbon Dioxide 31 mmol/L (22-30); Chloride 95 mmol/L (98-107); Estimated Creatinine Clearance 96 ml/min; Glucose 146 mg/dl (70-99); Magnesium 2.2 mg/dl (1.6-2.3); Sodium 139 mmol/L (135-145); Total Bilirubin 1.3 mg/dl (0.2-1.3); Total Protein 7.5 g/dl (6.3-8.2); eGFR > 60.00
--- NOTE | 2024-08-09 09:16 | PN.CDI ---
CDI
- -
CDI:
Physician Documentation Request
Admit Date: 08/05/24 17:32
Dear Doctor Fritz/Resident,
Please review the following and provide your response in the progress notes.
Clinical Indicators:
Documentation in the record on 07/06-07/08 includes the diagnosis of Acute Hypoxic Respiratory Failure. The patient's respiratory clinical indicators were the following:
Progress notes 07/06-07/08, ' On 3 L nasal cannula.... dropped down to 80% O2 saturations on room air........Acute on chronic hypoxemic respiratory failure, does not use O2 at home. ....'
Per pt vital signs there is no documented tachypnea/tachycardia /Pt has been on 1-3 LPM via NC
Recognized standard criteria for respiratory failure includes:
(Source: [facility] Hospitalist Sep 2013)
ABGs (1 or more)
�PO2 <60 or RA SpO2 <91%
�PcO2 >50 and pH <7.35
�pO2 decrease or pcO2 increase by 10 mmHg from baseline if known Symptoms:
�Tachypnea, SOB, dyspnea
�Pallor or cyanosis
�Anxiety or restlessness
�Use of accessory muscles
�Retractions (grunting in newborns)
�Unable to speak in complete sentences
Supplemental O2 requirement of 40% (5LPM) or more Intubation is not required
Based on the above information and the recognized standard for respiratory failure could you please verify this diagnoses is still accurate and reflective of the patient�s condition to ensure quality of the medical record.
Please clarify in the Progress Notes:
� Acute Hypoxic Respiratory failure is/was present and is a clinical diagnosis based on (please include this additional support in the medical record)
�After study Acute Hypoxic Respiratory Failure has been ruled out
�Other
Use of terms such as suspected, likely, concern for, or probable (associated with a specific diagnosis that is being evaluated, monitored, or treated as if it exists) are acceptable and can be coded in the inpatient setting, when documented at the
time of discharge.
Thank you,
Ursula Stewart RN
CDI Specialist
[place] [facility]
Please use your independent medical judgment in providing your response.
--- NOTE | 2024-08-09 09:29 | PN.CDI ---
CDI
- -
CDI:
Physician Documentation Request
Admit Date: 08/05/24 17:32
Dear Doctor Fritz/Resident ,
Please review the following and provide your response in the progress notes.
Clinical Indicators:
Pt admitted with Acute on Chronic Diastolic CHF
Documented Progress notes 07/06-07/08, ' On 3 L nasal cannula.... dropped down to 80% O2 saturations on room air........Acute on chronic hypoxemic respiratory failure, does not use O2 at home. ....'
Pulmonary consult, ' Dyspnea on exertion, acute on chronic Exertional Hypoxemia ....No oxygen was needed on admission, currently saturating 96% on RA...'
Please provide in your note the diagnosis associated with above findings:
Dyspnea on Exertion Acute on Chronic / RLD
Chronic Hypoxic Respiratory failure ( please document indicators to support diagnosis )
Other
Use of terms such as suspected, likely, concern for, or probable (associated with a specific diagnosis that is being evaluated, monitored, or treated as if it exists) are acceptable and can be coded in the inpatient setting, when documented at the
time of discharge.
Thank you,
Ursula Stewart RN
CDI Specialist
[place] [facility]
Please use your independent medical judgment in providing your response.
[2024-08-09 11:00] VITALS: BP 111/60
--- NOTE | 2024-08-09 11:18 | W.PN.PUL3 ---
Today's Communication / Plan
-
Reviewed PFT results with patient and provided a copy
She will follow up with her art therapy certified supervisor at [facility]
Home O2 eval not showing need for O2 at home/exertion
OP FU already scheduled for Aug
Discharge planning per team
Assessment
-
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
productive cough, fatigue, exhaustion, dyspnea on exertion. This may have been triggered by recent episode of COVID-positive illness but she self tested at home and was negative. She has noticed more persistent fatigue and has been sleeping more.
We are consulted for evaluation.
Dyspnea on exertion, acute on chronic
Exertional Hypoxemia
Fatigue/EDS
Mild lactic acidosis
Recent URI, COVID-negative
Severe restrictive lung disease
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
ASD/VSD/pulmonary hypertension/pulmonic stenosis by records
s/p Pacemaker
Type 2 diabetes
Migraines
Cognitive impairment
History of stroke
Diabetic neuropathy
History of pheochromocytoma s/p resection
History of portal vein thrombosis
Hepatic fibrosis/cirrhosis?
Chronic elevated right hemidiaphragm
SVC and IVC stents for presumed anastomotic stenosis
Plan
No oxygen was needed on admission, currently saturating 96% on RA
There is note of desaturation with ambulation which is relatively new
Home O2 evaluation -- O2 aneudy 91%, does not require O2
Prior history of lung disease is noted--
She follows with pulmonary at [facility] since childhood.
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
She has not previously required oxygen in the past, but she has noted occasional desaturation with exertion.
She is currently maintained on Trelegy and albuterol rescue inhaler.
Last PFT reviewed was in June 2023 with moderate restrictive lung disease (TLC 61%) and moderate diffusion impairment (DLCO 48%)
Suspect patient has acute on chronic dyspnea from RLD
Prior testing was moderate, repeat testing now <50% (severe), reviewed this with patient
She has numerous reasons for restriction including kyphosis, enlarged heart, chronic elevation of RHD
We discussed management including rehab, PAP therapy if needed
Given her EDS/fatigue, outpatient sleep study would be warranted which she can have done in [place]
CXR/CT obtained indicating very restricted appearing lungs but no acute findings
Other imaging reviewed
ECHO results reviewed with enlarged RV size/pulmonary hypertension is noted
Defer to care team in [place] for further management
Will need outpatient pulmonary evaluation at [facility] for next steps at discharge
Reviewed with patient
Risk factors assessed for underlying sleep disordered breathing also noted, recommend outpatient PSG/sleep evaluation
Recommend outpatient pulmonary rehab as well
Discharge planning per team
Diagnostic Data
CXR 08/08/24 - Mild interval progression of pulmonary edema. Suspected small bilateral pleural effusions are unchanged.
CT CAP 09/22/21- No acute posttraumatic abnormality seen throughout the chest, abdomen and pelvis. Postprocedural corrective changes in the chest correlating with given history of transposition of the great vessels. Microlobulated appearance of the
liver and mild splenomegaly suggesting cirrhotic morphology. Small left ovarian cysts, as described.
There is some mild bibasilar subsegmental atelectasis. There is no pneumothorax, pleural effusion or pericardial effusion. Moderate elevation of the right hemidiaphragm is stable.
ECHO 08/07/24- The left ventricle is sub pulmonic, and dilated. There is mild left ventricular hypertrophy with a pacing wire. LVEF is 60-65%. Paradoxical septal motion is present. Diastolic function indeterminate. Right ventricular hypertrophy.
Enlarged right ventricular size. Preserved right ventricular function. The right ventricle is systemic. Mildly dilated right atrium. No mitral regurgitation. Mitral valve is sub pulmonary. There is no aortic stenosis. Trace aortic regurgitation is
seen. The aortic valve arises anteriorly from the systemic right ventricle. Moderate tricuspid regurgitation. Estimated pulmonary artery pressure of 75-80 mmHg assuming a right atrial pressure of 3 mmHg. The tricuspid valve is systemic. No
evidence of flow acceleration within the pulmonary venous baffle. There is a stent in the superior systemic venous baffle. There is a stent in the inferior systemic venous baffle also. No obvious baffle leak is seen on color Doppler. Compared to
previous echo 04/21/23, the pulmonary artery pressures have increased from 55 to 75 mmHg. Otherwise no significant change.
PFT's: TLC 48%, DLCO 40%
Reports and relevant images were personally reviewed.
Total time spent on this encoutner __51__ includes review of history, physical exam, medications, laboratory data, personal review of imaging, extensive review of outpatient records, discussion with care team and respiratory therapy.
Subjective Data
-
Date of Service:
Date of Service: August 09, 2024
Chief Complaint: Pulmonary Follow Up
Subjective:
Doing well today, no new complaints
Stable on RA, no further exertional hypoxemia
Objective Data
Data Reviewed
Vital Signs / I&O / Oxygen:
Vital Signs
Temp Pulse Resp BP Pulse Ox
97.6 F 81 16 106/50 88
08/09/24 07:00 08/09/24 08:35 08/09/24 07:00 08/09/24 08:35 08/09/24 09:43
Intake and Output
08/08/24 08/09/24 08/10/24
06:59 06:59 06:59
Intake Total 960 / 960 1320 / 1320
Balance 960 / 960 1320 / 1320
SaO2 88
Nasal Cannula flow liters per 1
minute
Physical Exam
General: Comfortable and Other (NAD)
HEENT: Normocephalic, Anicteric and Moist Mucous Membranes
Cardiovascular: S1-S2 and Regular Rhythm
Respiratory: Clear and Non-Labored Respirations
GI: Soft, Non Distended and Non Tender
Neurology: Awake, Alert, Oriented and No Motor Deficits
Skin: Warm, Dry and Good Color
Labs/Micro/Reports
Lab Data
08/09/24 07:32
08/09/24 07:32
Microbiology
08/05/24 17:31 Urine Legionella Urinary Antigen - Final
Negative for Legionella pneumophila Serogroup 1 antigen.
A negative result does not rule out the possiblity of
Legionella infection due to other serogroups or species of
Legionella. Clinical correlation is recommended.
08/05/24 17:31 Urine Streptococcus pneumoniae Antigen (M - Final
Negative for Streptococcus pneumoniae antigen.
A negative result does not exclude infection with
Streptococcus pneumoniae. Clinical correlation is
recommended.
--- NOTE | 2024-08-09 13:21 | W.PN.CARDCBS ---
Addendum entered and electronically signed by Alexi Bustillos MD 08/09/24 15:58:
I saw and examined the patient.
The Housekeeping Aide's note was reviewed and I agree with the note.
Comment:
GEN: No distress, awake, Ox3
HEENT: supple, anicteric, mmm
LUNGS: CTA, no wheezes/rales
CV: Reg, S1/S2, RV heave, Inc P2, 2/6 syst LSB
ABD: soft, BS+, NT/ND
EXT: No edema
NEURO: Gross non-focal
SKIN: No rash
Plan:
Echo was reviewed. She has D transposition status post mustard procedure as an infant with atrial baffle stenting. This is stable.
PA pressure about 70mm mmHg.
Her volume status has improved and she is now off oxygen. I had a lengthy discussion with her regarding management.
Okay to discharge on Lasix 40 mg daily.
Continue Toprol, spironolactone, and Farxiga.
Okay to restart losartan.
She should follow-up with her adult congenital chamber magistrate Dr. Hunter at [facility].
Addendum entered and electronically signed by Shira Hester PA-C 08/09/24 15:36:
Will cancel Lasix IV and patient should continue higher dose Lasix 40 mg PO daily upon d/c.
E-scribed Lasix 40 mg PO daily to her local pharmacy.
Original Note:
Today's Communication / Plan
-
Lasix 40 mg IV this evening and then 40 mg IV daily
Impression / Plan
-
PCP: Dr. Headley
Cardiology: Dr. Gómez Hunter at [facility],
Impression:
Dyspnea on exertion
Acute on chronic HFpEF, CHF-NYHA class 2
Mild lactic acidosis
Recent URI, COVID-negative
Congenital heart disease
Transposition of great vessels.
Balloon septostomy, age 2 days
Juhi Daiana shunt, age 2 months
Mustard procedure with atrial baffling, age 10 months
Epicardial right ventricular lead placement, age 11, with redundant second lead. First lead fractured with switch to second lead
s/p PPM with abdominal generator intracardiac atrial lead system placed approximately 2007
Type 2 diabetes
Migraines
Cognitive impairment
h/o CVA
Diabetic neuropathy
History of pheochromocytoma s/p resection
History of portal vein thrombosis
Hepatic fibrosis/cirrhosis?
Elevated right hemidiaphragm
SVC and IVC stents for presumed anastomotic stenosis
Echo 08/07/24: LV is sub pulmonic and dilated, mild LVH with a pacing wire. LVEF is 60-65%. RVH and enlarged RV size with preserved systolic function, the RV is systemic. Mildly dilated RA. No MR. Mitral valve is sub pulmonary. No and trace aortic
regurgitation, aortic valve arises anteriorly from the systemic right ventricle, mod TR with PAP 75-80 mmHg assuming a right atrial pressure of 3 mmHg. The tricuspid valve is systemic. No evidence of flow acceleration within the pulmonary venous
baffle. There is a stent in the superior systemic venous baffle. There is a stent in the inferior systemic venous baffle also. No obvious baffle leak is seen on color Doppler. Compared to previous echo 04/21/23, the pulmonary artery pressures have
increased from 55 to 75 mmHg. Otherwise no significant change.
Plan:
-Patient admitted with MARTIN and being managed with IV diuresis. Pulmonology consulted 08/08/24 and also suspect acute on chronic dyspnea from RLD.
-From a Pulm standpoint, patient with RLD from kyphosis, cardiomegaly and chronically elevated right hemidiaphragm and recommendation is for home oxygen closer to d/c and outpatient THAD.
-Weight is down 5 lbs from admission with Lasix 20 mg IV x2 08/05/24, Lasix 20 mg IV x1 08/06/24, Lasix 20 mg IV x1 08/08/24 plus Lasix 20 mg PO daily on 08/07/24 and 08/08/24. Patient is now ordered Lasix 40 mg PO daily as of 08/09/24. Patient was taking
Lasix 20 mg PO daily.
-BP stable so will try another dose of Lasix 40 mg IV on 08/09/24 evening.
-Patient is being evaluated for home oxygen, but would prefer to not have home oxygen if she can.
HPI: 49-year-old female with PMH of Pheochromocytoma s/p left adrenalectomy, HTN, chronic HFpEF, restrictive lung disease, transposition of great vessels s/p anastomosis with baffles who presented to ED on 08/05 with weakness, cough and SOB on
exertion while on cruise. Reports compliance with 20 mg Lasix, recent contacts with COVID-positive and URI positive patient's. CXR showed bilateral interstitial pulmonary opacities concerning for pulmonary edema with considerations of atypical
infection/viral pneumonia. Patient was admitted and cardiology was consulted for further evaluation and management.
Progress Note - Automation Machine Operator
Subjective
Date of Service: August 09, 2024
Still with more MARTIN than baseline
Objective
Labs:
08/09/24 07:32
08/09/24 07:32
Labs
Hgb 12.0 g/dL (12.0-16.0) 08/09/24 07:32
Hct 35.1 % (37.0-47.0) L 08/09/24 07:32
Plt Count 75 10^3/uL (130-400) L 08/09/24 07:32
Sodium 139 mmol/L (135-145) 08/09/24 07:32
Potassium 4.0 mmol/L (3.5-5.1) 08/09/24 07:32
BUN 17 mg/dl (7-17) 08/09/24 07:32
Creatinine 0.7 mg/dL (0.6-1.0) 08/09/24 07:32
Glucose 146 mg/dl (70-99) H 08/09/24 07:32
Vital Signs and I&O:
Vital Signs
Temp Pulse Resp BP Pulse Ox
97.9 F 100 16 111/60 93
08/09/24 11:00 08/09/24 11:00 08/09/24 11:00 08/09/24 11:00 08/09/24 11:00
Vital Signs
Temp Pulse Resp BP Pulse Ox
97.9 F 100 16 111/60 93
08/09/24 11:00 08/09/24 11:00 08/09/24 11:00 08/09/24 11:00 08/09/24 11:00
Intake & Output
08/07/24 08/08/24 08/09/24 08/10/24
06:59 06:59 06:59 06:59
Intake Total 820 / 820 960 / 960 1320 / 1320
Balance 820 / 820 960 / 960 1320 / 1320
Physical Exam
Physical Exam
GEN: NAD. AAOx3
HEENT: mmm
LUNGS: No audible wheeze
CV: A paced on tele
ABD: ND
EXT: Trace edema
NEURO: Gross non-focal
SKIN: No rash
[2024-08-09 15:23] VITALS: BP 109/62
--- NOTE | 2024-08-09 17:03 | W.DCSUMMARY ---
Discharge Summary
Discharge Data
Date of Admission: 08/05/24
Date of Discharge: 08/09/24
-
Pending Results: No
Hospital Course
Patient is a 49-year-old female with a congenital heart defect status postsurgery transposition of the great vessels, subsequent V. tach episodes requiring and a pacer. She has a past medical history of liver fibrosis from congestive heart failure,
pheochromocytoma status post adrenalectomy, and restrictive lung disease. She presented to the emergency department 4 to 5 days after experiencing shortness of breath on exertion but also at rest. She was more sleepy than usual feeling 'wiped out'
and had a dry cough that started prior to her presentation. She was recently exposed to someone who had COVID and when she did a home COVID test it tested negatively. She has never had a DVT or PE. She had some weight gain especially in her
abdomen. She has a history of liver disease as well. Her last echo showed an EF of 50%. She had an elevated glucose of 216 on admission and is a known type II diabetic. She needed 2 L of oxygen in order to maintain saturation above 93%. Patient
was admitted to [facility] for acute hypoxic respiratory failure.
Procalcitonin, lactic acid, and sputum culture was taken. Lactic acid was increased at 2.7, procalcitonin was normal, sputum culture was normal. Legionella and strep antigen were negative. IV Rocephin and IV Zithromax was given. Chest x-ray
taken showed bilateral interstitial pulmonary opacities favored to represent pulmonary edema. It was unable to rule out atypical infection/viral infection based on the imaging. Tylenol was given for pain control. And CBC and BMP were monitored.
Daily I/O's were taken. Lasix was continued but spironolactone was held during the admission. Her need for oxygen on the second day increased to 3L. Her status remained about the same even though she was given IV Lasix. Her glucose returned
closer to normal range at around 147 on her normal diabetic medications after her admission. There was suspicion of a viral illness being the cause of her multifactorial dyspnea along with an increased proBNP since she just recently returned from a
cruise with her friend who was exposed to COVID. Potassium was consistently monitored and kept greater than 4 and magnesium when it fell below 2 was repleted. She briefly had her IV Lasix held due to hypotension. Her weight Trending downwards and
she was losing approximately 2 to 4 kg a day on her IV diuretic. Echo conducted showed left ventricle is subpulmonic and dilated with mild left ventricular hypertrophy and a pacing wire. Left ventricular ejection fraction is 60 to 65% paradoxical
septal motion is present. There was also right ventricular hypertrophy noted with an enlarged right ventricular size and preserved right ventricular fraction. Compared to a previous echo on 04/21/2023 the pulmonary artery pressures have increased
from 55 to 75 mmHg. Her Lasix was increased and as she was able to shed her additional weight and return to her baseline her demand for nasal cannula slowly diminished. Cardiology continue to follow and recommended that she would be discharged on
a oral dose of Lasix 40 mg every day and to continue her home spironolactone and SGLT2. A home oxygen assessment was ordered and the patient was determined to be not needing a home oxygen supply. It is recommended that the patient follow-up with
pulmonology in the outpatient setting either with [facility] who are more familiar with her medical history or locally in [facility] at the very least. The patient believes that she is ready for discharge and as her current baseline.
The patient has reached maximal benefit from this hospital stay and is appropriate for discharge at the present time. There are no barriers impeding her from being discharged safely from the hospital. Patient is been recommended to continue to
follow-up with her outpatient fretted string instrument repairer following her discharge. She has a follow-up scheduled with her fretted string instrument repairer in August at [facility]. The patient is appropriate for follow-up with her primary care physician in the outpatient setting.
Discharge Plan
-
Patient Disposition: Home (Routine Discharge)
Discharge Diagnosis/Procedures: Acute Hypoxemic respiratory failure secondary to chronic CHF
Condition: Good
Diet: No restrictions, 2 Gram Sodium and Restrict fluids to 64 oz
Activity: No restrictions
Specialty Instructions: Weigh Daily- Call MD for wt gain/loss 3 lbs overnight/5 lbs in 1 week
Instructions: *PCP/Other Rides Supervisor Heart Failure Instructions
Referrals:
Siena Feliz DO [Active] - in one to two weeks
Jacklyn Headley MD [Family Provider] - in one to two weeks
Additional Discharge Medication Instructions: Recommend outpatient pulmonology evaluation at [facility] following discharge. Local outpatient pulmonology referral made in the interim.
Prescriptions:
New
furosemide 40 mg Tablet
40 mg PO DAILY Qty: 30 6RF
Continued
metoprolol succinate 25 MG tablet extended release 24 hr
25 mg PO HS
losartan 25 mg Tablet
25 mg PO HS
Invokana 100 MG tablet
100 mg PO DAILY
spironolactone 25 mg Tablet
12.5 mg PO HS
sertraline 100 mg tablet
100 mg PO HS
Ferrex 150 Forte 150-25-1 mg-mcg-mg capsule
1 cap PO HS
buspirone 10 mg tablet
10 mg PO BIDPRN PRN (Reason: anxiety)
Trelegy Ellipta 100-62.5-25 mcg blister with device
1 inh INHALATION R HS
Emgality Pen 120 mg/mL pen injector
120 mg SC MONTHLY
ondansetron HCl 8 mg Tablet
8 mg PO BIDPRN PRN (Reason: nausea/vomiting)
sucralfate 1 gram Tablet
1 g PO BIDPRN PRN (Reason: stomach issues)
omeprazole 40 mg Capsule,Delayed Release(Dr/Ec)
40 mg PO BID
oxycodone-acetaminophen [Percocet] 5-325 mg Tablet
1 tab PO Q6HPRN PRN (Reason: moderate pain)
metformin 500 mg tablet extended release 24 hr
500 mg PO BID
hwjijvnnwt-nuavzylftdcuj-difg [Fioricet] 50-300-40 mg Capsule
1 cap PO Q4HPRN PRN (Reason: headache)
Discontinued
furosemide [Lasix] 20 mg tablet
20 mg PO DAILY Qty: 5 0RF
Discharge Orders:
Discharge Patient (As Directed); Ordered 08/09/24
Ordered By: Justo Sánchez
Discharge Date and Time
Print Language: BULGARIAN
--- NOTE | 2024-08-10 14:46 | W.HF.CON ---
Heart Failure
- LV Function
Left ventricular function study result: LV Ejection fraction >40%
Ejection Fraction Percentage: 60-65
- ARNI
Patient already on ARNI: No
Heart Failure ARNI Not Indicated: LV Ejection Fraction >/= 40%
- ACEI/ARB
Patient already on ACEI/ARB: Yes
- Beta Clara
Patient already on Evidence Based Beta Clara: Yes
- Mineralocorticord Receptor Antagonist
Patient already on MRA: Yes
- SGLT-2 Inhibitor
Patient already on SGLT-2 Inhibitor: Yes
- NYHA CHF Classification
NYHA CHF Classification Level: Class II - Slight limitation by SOB and/or fatigue during mod exertion
- ACC/AHA Stage
ACC/AHA Stage: Stage C: Symptomatic Heart Failure
== END 2024-08-09 17:55 | disposition home or self-care (01) | DRG 291 ==
LOC: 3 WEST ACU 17:32
PROVIDERS: Clinical Nurse Specialist Family Health; Physician Assistant; ADMITTING PHYSICIAN Hospitalist; ATTENDING PHYSICIAN Hospitalist; CONSULT PHYSICIAN Internal Medicine; CONSULT PHYSICIAN Internal Medicine Cardiovascular Disease; EMERGENCY PHYSICIAN Student in an Organized Health Care Education/Training Program; FAMILY PHYSICIAN Internal Medicine
DX: I11.0 Hypertensive heart disease with heart failure (principal); J96.01 Acute respiratory failure with hypoxia; E87.20 Acidosis, unspecified; I50.32 Chronic diastolic (congestive) heart failure; E11.65 Type 2 diabetes mellitus with hyperglycemia; E11.40 Type 2 diabetes mellitus with diabetic neuropathy, unspecified; I49.5 Sick sinus syndrome; K21.9 Gastro-esophageal reflux disease without esophagitis; D69.6 Thrombocytopenia, unspecified; G43.909 Migraine, unspecified, not intractable, without status migrainosus; F41.9 Anxiety disorder, unspecified; J98.4 Other disorders of lung; I95.9 Hypotension, unspecified; K76.1 Chronic passive congestion of liver; J98.6 Disorders of diaphragm; I25.10 Atherosclerotic heart disease of native coronary artery without angina pectoris; Z95.5 Presence of coronary angioplasty implant and graft; Z95.0 Presence of cardiac pacemaker; Z20.822 Contact with and (suspected) exposure to COVID-19; Z87.74 Personal history of (corrected) congenital malformations of heart and circulatory system; Z88.5 Allergy status to narcotic agent; Z86.73 Personal history of transient ischemic attack (TIA), and cerebral infarction without residual deficits; Z86.16 Personal history of COVID-19; Z79.899 Other long term (current) drug therapy; Z79.84 Long term (current) use of oral hypoglycemic drugs
CPT/HCPCS: 94727; 94729; 71046; 80053; 83605; 83735; 83880; 84145; 84484; 85025; 85027; 87449; 87502; 87811; 87899; 93005; 93306; 94060; 94640; 96374; 97162; 97165; 97530; 99285

== ENCOUNTER 2024-10-10 16:08 | Outpatient (RCR) | payer OTHER, SELFPAY | END 2024-10-10 23:59 | disposition home or self-care (01) | LOC: RPT 16:08 | PROVIDERS: Psychiatry & Neurology Neurology; FAMILY PHYSICIAN Internal Medicine | DX: M54.2 Cervicalgia (principal); Z73.6 Limitation of activities due to disability; G44.209 Tension-type headache, unspecified, not intractable | CPT/HCPCS: 97010; 97110; 97140; 97162 ==

== ENCOUNTER 2024-11-13 12:13 | Outpatient (RCR) | payer OTHER, SELFPAY | END 2024-11-13 23:59 | disposition home or self-care (01) | LOC: RPT 12:13 | PROVIDERS: FAMILY PHYSICIAN Internal Medicine | DX: M54.2 Cervicalgia (principal); Z73.6 Limitation of activities due to disability; G44.209 Tension-type headache, unspecified, not intractable | CPT/HCPCS: 97010; 97110; 97140 ==

== ENCOUNTER 2024-11-26 16:54 | Emergency (ER) | payer OTHER, SELFPAY ==
[2024-11-26] VITALS (9 sets, daily range): BP systolic 85–103; BP diastolic 51–77; BMI 25.8
[2024-11-26 17:55] LABS: % Basophils 0.4 % (0-2); % Eosinophils 0.9 % (0-6); % Immature Granulocytes 0.4 % (0-0.5); % Lymphocytes 20.5 % (20.5-51.1); % Monocytes 7.4 % (1.7-9.3); % Neutrophils 70.4 % (42.2-75.2); Absolute Eosinophils 0.1 10^3/uL (0-0.7); Absolute Lymphocytes 1.1 10^3/uL (1.2-3.4); Absolute Monocytes 0.4 10^3/uL (0.1-0.6); Absolute Neutrophils 3.9 10^3/uL (1.4-6.5); Hematocrit 40.3 % (37.0-47.0); Hemoglobin 13.6 g/dL (12.0-16.0); Mean Corp Hgb Conc. 33.7 g/dL (33.0-37.0); Mean Corpuscular Hgb 31.2 pg (27.0-31.0); Mean Corpuscular Volume 92.4 fL (81.0-99.0); Nucleated Red Blood Cells % 0 %; Red Blood Cell Count 4.36 10^6/uL (4.20-5.40); Red Cell Dist. Width 13.9 % (11.5-14.5); White Blood Cell Count 5.6 10^3/uL (4.8-10.8)
[2024-11-26 18:04] LABS: ALT (SGPT) 24 U/L (0-35); AST (SGOT) 34 U/L (14-36); Albumin 4.7 g/dl (3.5-5.0); Alkaline Phosphatase 98 U/L (38-126); Blood Urea Nitrogen 13 mg/dl (7-17); Carbon Dioxide 31 mmol/L (22-30); Chloride 93 mmol/L (98-107); Estimated Creatinine Clearance 96 ml/min; Glucose 117 mg/dl (70-99); Potassium 3.8 mmol/L (3.5-5.1); Sodium 136 mmol/L (135-145); Total Protein 8.2 g/dl (6.3-8.2); eGFR > 60.00
[2024-11-26 18:12] LABS: Mean Platelet Volume 11.1 fL (7.4-10.4); Platelet Count 96 10^3/uL (130-400)
[2024-11-26 18:13] LABS: Troponin I < 0.012 ng/ml
[2024-11-26] MEDS: NSS 500 IV ×2 (18:22→19:25)
--- NOTE | 2024-11-26 18:23 | ED.GENMED ---
History of Present Illness
<Emmy Marcial MD, Resident - Last Filed: 11/26/24 21:10>
General
Chief Complaint: Heart Rate Problem
Source: patient
Exam Limitations: none
Time Seen by Provider: 11/26/24 17:41
Nursing documentation reviewed up to this point in time: agreed with
History of Present Illness
History of Present Illness:
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 She says she felt her heart rate was
fast since around 10am today and got multiple notifications from her watch that her HR was >120 at rest. She took her usual dose of toprol xl 25mg around 3:30pm, which did not help. Denies chest pain/pressure, shortness of breath, cough. Notes
possible viral illness last week when she felt achy and had sore throat for 2-3 days, but otherwise in her usual state of health. Recent medication changes include increasing furosemide from 20mg daily to 40mg daily for past few days (due to running
out of 20mg pills at home). Drank about one 16.9 oz bottle of water today.
Past History
<Emmy Marcial MD, Resident - Last Filed: 11/26/24 21:10>
Past History
ED Past Medical History: Arrthythmia, CHF (HFpEF), NIDDM and Other (Transposition of the great vessels, sick sinus syndrome, restrictive lung disease)
ED Past Surgical History: Cardiac and Other (L adrenalectomy)
Social History
Tobacco: Non-smoker
Alcohol: None
Drug: None
Personal:
Living: with family
Employment: Employed
Family History
Family History: Other (Noncontributory)
Review of Systems
<Emmy Marcial MD, Resident - Last Filed: 11/26/24 21:10>
Review of Systems
Constitutional: Denies fever, weight gain, weight loss or chills
EENT: Reports other (dry mouth)
Respiratory: Denies cough, hemoptysis or trouble breathing
Cardiac: Denies chest pain, diaphoresis or syncope
ABD/GI: Reports nausea and diarrhea (1 loose BM this AM); Denies abdominal pain, vomiting, constipated, bloody stools or black stools
: Reports no symptoms
Musculoskeletal: Reports no symptoms; Denies edema
Skin: Reports no symptoms
Neurological: Reports dizzy (at baseline) and headache (mild L frontal); Denies weakness
Endocrine: Reports no symptoms
Hematologic/Lymphatic: Reports no symptoms
Psychiatric: Reports no symptoms
Phy Exam
<Emmy Marcial MD, Resident - Last Filed: 11/26/24 21:10>
General Physical Exam
General Presentation: well appearing and no apparent distress
General age: appears stated age
General Skin: warm and dry
General Habitus: normal
General Mental: alert
General Hydration: dry mucous membranes
Cardiovascular Exam
Cardiovascular Exam: no edema, no JVD, no murmur and tachycardia
Heart Sounds: normal
Pulmonary Exam
Pulmonary Exam: lungs clear, no respiratory distress, no crackles, no wheezing, no cough and decreased breath sounds (right)
Oxygen Status: room air
Cough: no cough
Respirations: other (nonlabored breathing)
Gastrointestinal Exam
Gastrointestinal Exam: normal bowel sounds, non tender, soft and non distended
Neurological Exam
Neurological Exam: alert, oriented x3 and speech normal
Musculoskeletal Exam
Musculoskeletal Exam: no edema and other (no calf tenderness)
Skin Exam
Skin Exam: normal color
Scores
<Emmy Marcial MD, Resident - Last Filed: 11/26/24 21:10>
PE Wells Score
Symptoms of DVT: No
No alternative diagnosis better explains the illness: No
Tachycardia with pulse > 100: Yes
Immobilization (>=3 days) or surgery within previous 4 weeks: No
Prior history of DVT or pulmonary embolism: No
Presence of hemoptysis: No
Presence of malignancy: No
Pulmonary Embolism Risk Score: 1.5
Probability of PE: Pt is low risk
PERC Rule Criteria
Age <50 years: Yes
HR <100 bpm: No
Room air oxygen sat >94%: Yes
History of DVT or PE: No
Recent trauma or surgery: No
Hemoptysis: No
Exogenous estrogen: No
Clinical signs suggestive of DVT: No
: No
Considered low risk for PE: Yes
PERC Score: 1
PE can be excluded by PERC: No
<Wiliam Randolph MD - Last Filed: 11/26/24 20:55>
PE Wells Score
Pulmonary Embolism Risk Score: 1.5
Probability of PE: Pt is low risk
PERC Rule Criteria
PERC Score: 1
PE can be excluded by PERC: No
Course
<Emmy Marcial MD, Resident - Last Filed: 11/26/24 21:10>
Orders/Labs/Results
Orders:
Orders
11/26/24 16:55
ECG [Electrocardiogram (*1)] Urgent
Reason for Study: Tachycardia
EKG- Treatment ONCE
11/26/24 17:43
Complete Blood Count/With Diff Urgent
Comprehensive Metabolic Panel Urgent
Magnesium Urgent
Comment: ADD ON
TSH Reflex To Free T4 Urgent
Comment: ADD ON
Troponin I Urgent
11/26/24 18:16
Add On- LAB Urgent
Tests Added?: magnesium, thyroid with reflex
11/26/24 18:19
0.9% Sodium Chloride 500 ml [Nss] 500 ml IV BOLUS
11/26/24 18:39
pacemaker [Interrogate Pacemaker- Treatment] ONCE
11/26/24 18:40
Metoprolol [Lopressor] 5 mg IV NOW STA
11/26/24 19:16
0.9% Sodium Chloride 500 ml [Nss] 500 ml IV BOLUS
Magnesium Sulfate 2 Gram/50 ml [Magnesium Sulfate] 2 gram in 50 ml IV NOW
11/26/24 20:08
Electrocardiogram (*1) Urgent
Reason for Study: Bradycardia / Tachycardia
EKG- Treatment ONCE
Abnormal Lab Results
11/26/24
17:43
MCH 31.2 H pg
(27.0-31.0)
Plt Count 96 L 10^3/uL
(130-400)
MPV 11.1 H fL
(7.4-10.4)
Absolute Lymphs (auto) 1.1 L 10^3/uL
(1.2-3.4)
Chloride 93 L mmol/L
(98-107)
Carbon Dioxide 31 H mmol/L
(22-30)
Glucose 117 H mg/dl
(70-99)
11/26/24 17:43
11/26/24 17:43
Vital Signs
Initial and Last Documented VS:
Initial Vital Signs
Temp Pulse Resp BP Pulse Ox
98.3 F 125 16 103/77 98
11/26/24 16:57 11/26/24 16:57 11/26/24 16:57 11/26/24 16:57 11/26/24 16:57
Last Documented Vital Signs
Temp Pulse Resp BP Pulse Ox
98.3 F 71 19 92/60 94
11/26/24 16:57 11/26/24 20:25 11/26/24 20:25 11/26/24 20:51 11/26/24 20:52
Nafisalt;Wiliam Randolph MD - Last Filed: 11/26/24 20:55>
Orders/Labs/Results
Orders:
Orders
11/26/24 16:55
ECG [Electrocardiogram (*1)] Urgent
Reason for Study: Tachycardia
EKG- Treatment ONCE
11/26/24 17:43
Complete Blood Count/With Diff Urgent
Comprehensive Metabolic Panel Urgent
Magnesium Urgent
Comment: ADD ON
TSH Reflex To Free T4 Urgent
Comment: ADD ON
Troponin I Urgent
11/26/24 18:16
Add On- LAB Urgent
Tests Added?: magnesium, thyroid with reflex
11/26/24 18:19
0.9% Sodium Chloride 500 ml [Nss] 500 ml IV BOLUS
11/26/24 18:39
pacemaker [Interrogate Pacemaker- Treatment] ONCE
11/26/24 18:40
Metoprolol [Lopressor] 5 mg IV NOW STA
11/26/24 19:16
0.9% Sodium Chloride 500 ml [Nss] 500 ml IV BOLUS
Magnesium Sulfate 2 Gram/50 ml [Magnesium Sulfate] 2 gram in 50 ml IV NOW
11/26/24 20:08
Electrocardiogram (*1) Urgent
Reason for Study: Bradycardia / Tachycardia
EKG- Treatment ONCE
Abnormal Lab Results
11/26/24
17:43
MCH 31.2 H pg
(27.0-31.0)
Plt Count 96 L 10^3/uL
(130-400)
MPV 11.1 H fL
(7.4-10.4)
Absolute Lymphs (auto) 1.1 L 10^3/uL
(1.2-3.4)
Chloride 93 L mmol/L
(98-107)
Carbon Dioxide 31 H mmol/L
(22-30)
Glucose 117 H mg/dl
(70-99)
11/26/24 17:43
11/26/24 17:43
Vital Signs
Pulse: 75
Blood pressure: 94/51
Initial and Last Documented VS:
Initial Vital Signs
Temp Pulse Resp BP Pulse Ox
98.3 F 125 16 103/77 98
11/26/24 16:57 11/26/24 16:57 11/26/24 16:57 11/26/24 16:57 11/26/24 16:57
Last Documented Vital Signs
Temp Pulse Resp BP Pulse Ox
98.3 F 71 19 92/60 94
11/26/24 16:57 11/26/24 20:25 11/26/24 20:25 11/26/24 20:51 11/26/24 20:52
<Emmy Marcial MD, Resident - Last Filed: 11/26/24 21:10>
MDM/Problems Addressed
Differential Diagnosis Includes:
dehydration, PE, hyperthyroidism, electrolyte imbalances, anemia
MDM/Problems Addressed:
Tachycardia most likely secondary to dehydration in the context of recently increasing her furosemide dose.
Low risk for PE given that she does not have risk factors or additional symptoms.
Less likely hyperthyroidism given lack of symptoms, but will check TSH. Will check CBC, BMP, mag.
Chronic conditions affecting care: DM and Arrhythmia
<Emmy Marcial MD, Resident - Last Filed: 11/26/24 21:10>
*[employer]ional [employer] Interpretation
Rate: tachycardiac
Heart Rate: 125
*Critical Care Note
Total Time (30-74mins, 75-104mins- exclusive of procedures): Not Applicable
<Emmy Marcial MD, Resident - Last Filed: 11/26/24 21:10>
Update Note
Update Note:
CBC, CMP, unremarkable. Troponin negative. Mag, TSH pending. Give 500mL IV NS bolus and reassess HR.
1840: Reviewed EKG with Dr. Canales-- suggested 5mg IV lopressor. IV lopressor ordered but held given hypotension though BPs consistent with patient's baseline.
1914: Still with tachycardia. Will give additional 500mL IV NS bolus and 2g magnesium. BPs reviewed, consistent with patient's baseline.
2054: Vitals reviewed, tachycardia resolved. Repeat EKG showing sinus rhythm with atrial pacing. BPs at patient's baseline. Returned to bedside, patient well-appearing and reports HR feels better. Reviewed importance of taking furosemide 20mg as
prescribed by her cephalometric analyst, Dr. Gómez Hunter (not 40mg which she had been taking past few days). EKGs printed and given to patient per her request. Stable for discharge home with outpatient cardiology and PCP follow up.
ED Attending Note
<Emmy Marcial MD, Resident - Last Filed: 11/26/24 21:10>
-
Portions of this chart may have been created with voice recognition software.� Occasional wrong word or��sound alike� substitutions may have occurred due to the inherent limitations of voice recognition software.
<Wiliam Randolph MD - Last Filed: 11/26/24 20:55>
ED Attending Note
Patient seen and examined by attending physician: Yes
I performed a history and physical exam of patient and discussed management with resident, I reviewed resident's note and agree with documented findings and plan of care.: Yes
ED Attending Note:
I have seen and evaluated the patient with a dmfr-rl-fvas encounter. I have spoken to the [resident] and involved in the medical history, the physical exam, medical decision making.
Evaluation and management service: agree unless noted differently below.
Results interpretation: agree unless noted differently below.
49-year-old woman with history of congenital heart defect status postsurgical repair, pacemaker, CHF history of arrhythmias on metoprolol, diabetes presenting to the emergency department with tachycardia. Patient states that her watch notified her
starting at 10 AM for elevated heart rate. She states that it has been in the 120s to 130s all day. She called her cephalometric analyst this afternoon who recommended her to take an additional metoprolol. She took that around 330 with no relief. She
does state that she has been taking double the dosage of her Lasix for the past few days as she ran out of her 20 mg Lasix. She also notes that she had a loose bowel movement today. No vomiting. No fevers or chills. She does state that her mouth
feels dry regardless of how much water she drinks. She does note some palpitations when she is focused. Otherwise she does state that she is mostly asymptomatic. No chest pain or difficulty breathing. No leg swelling travel hemoptysis or history
of PE.
GENERAL: in no acute distress
HEENT: normocephalic, extraocular movements intact, dry oral mucosa
NECK: normal inspection
RESPIRATORY: no respiratory distress, clear to auscultation bilaterally
CARDIOVASCULAR: regular rhythm, tachycardic rate
ABDOMEN/: soft, non-distended, non-tender to palpation, no rebound or guarding
EXTREMITIES: non-tender, no edema/swelling
NEUROLOGIC: awake and alert, moves all extremities
SKIN: warm
41-year-old woman presenting to the emergency department tachycardia. On arrival here patient's heart rate is in the 120s. Her blood pressure is slightly low in the low 100s though she does state that is normal. Exam does show dry oral mucosa.
Likely tachycardia secondary to dehydration. Could be metabolic derangement. Considered PE though less likely as patient is asymptomatic with no risk factors. Blood work obtained prior to evaluation is unremarkable. Will add on magnesium and
thyroid cascade. Will interrogate pacer. EKG per my interpretation is an accelerated junctional rhythm. After discussion with cardiology will treat with 5 mg Lopressor and reassess. Will give fluids as well. Anticipate discharge once heart rate
is improved.
On reevaluation patient's blood pressure has decreased to systolic of 80s. She does state that she normally runs in the 90s. Given the worsening hypotension we will hold off on Lopressor and give additional fluids as well as magnesium.
On reevaluation patient blood pressure has improved to systolic in the 90s which is her baseline. Her heart rate did convert to a paced rhythm. Repeat EKG per my interpretation paced rhythm. She does have the inversions which are similar to her
prior. Pacemaker report with no new arrhythmias since last interrogation on September 11. Patient feels back to her baseline and does not feel the palpitations. Patient educated on making sure that she takes to 20 mg of Lasix. She did take her
dose today. She will call her cephalometric analyst tomorrow. Strict return precautions given. Will discharge at this time.
Discharge Plan
Departure
Patient Disposition: Home (Routine Discharge)
Date of Disposition: 11/26/24
Time of Disposition:
Patient with high blood pressure during this ER visit?: No
Discharge Problem:
Tachycardia
Prescriptions:
No Action
metoprolol succinate 25 MG tablet extended release 24 hr
25 mg PO HS
losartan 25 mg Tablet
25 mg PO HS
Invokana 100 MG tablet
100 mg PO DAILY
spironolactone 25 mg Tablet
12.5 mg PO HS
sertraline 100 mg tablet
100 mg PO HS
Ferrex 150 Forte 150-25-1 mg-mcg-mg capsule
1 cap PO HS
buspirone 10 mg tablet
10 mg PO BIDPRN PRN (Reason: anxiety)
Trelegy Ellipta 100-62.5-25 mcg blister with device
1 inh INHALATION R HS
Emgality Pen 120 mg/mL pen injector
120 mg SC MONTHLY
ondansetron HCl 8 mg Tablet
8 mg PO BIDPRN PRN (Reason: nausea/vomiting)
sucralfate 1 gram Tablet
1 g PO BIDPRN PRN (Reason: stomach issues)
omeprazole 40 mg Capsule,Delayed Release(Dr/Ec)
40 mg PO BID
oxycodone-acetaminophen [Percocet] 5-325 mg Tablet
1 tab PO Q6HPRN PRN (Reason: moderate pain)
metformin 500 mg tablet extended release 24 hr
500 mg PO BID
[id number] [Fioricet] 50-300-40 mg Capsule
1 cap PO Q4HPRN PRN (Reason: headache)
furosemide 40 mg Tablet
40 mg PO DAILY Qty: 30 6RF
Activity Restrictions/Additional Instructions:
You were seen in the Emergency Department today for an elevated heart rate that did resolve. While you were here we performed blood work, which was reassuring. Please talk to your cephalometric analyst for an appointment and any medication adjustments and
please make sure that you continue to take your 20 mg of Lasix.
We would like for you to follow up with your primary care physician for further evaluation. If you experience fever, worsening of your symptoms, or develop any other new or concerning symptoms, please return to the Emergency Department immediately.
Please see the attached sheet for additional information.
Interventions
Interventions:
*Risk Screen - Suicide Last Done: 11/26/24 16:57
*General Assessment Last Done: 11/26/24 17:33
*Neglect/Abuse Screening Last Done: 11/26/24 16:57
ED- Fall Risk Assessment Last Done: 11/26/24 17:35
*ED COVID-19 Vaccine History Last Done: 11/26/24 17:33
ED- Cardiac Assessment Last Done: 11/26/24 17:33
ED- Pulmonary Assessment Last Done: 11/26/24 17:33
Discharge Date and Time
Print Language: KENYAN
[2024-11-26 18:37] LABS: Magnesium 1.6 mg/dl (1.6-2.3)
[2024-11-26] MEDS: MAGNESIUM SULFATE 50 IV (19:31)
[2024-11-26 20:02] LABS: TSH Reflex To Free T4 3.57 uIU/ml (0.47-4.68)
== END 2024-11-26 21:00 | disposition home or self-care (01) ==
LOC: EMR 16:54
PROVIDERS: Emergency Medicine; EMERGENCY PHYSICIAN Student in an Organized Health Care Education/Training Program; FAMILY PHYSICIAN Internal Medicine
DX: R00.0 Tachycardia, unspecified (principal); Z95.0 Presence of cardiac pacemaker; E11.9 Type 2 diabetes mellitus without complications
CPT/HCPCS: 99284; 96365; 96361; 93288; 80053; 83735; 84443; 84484; 85025; 93005

== ENCOUNTER → 2024-11-29 09:00 | Outpatient (REF) | payer OTHER, SELFPAY | LOC: DHSLP 09:00 | PROVIDERS: ATTENDING PHYSICIAN Internal Medicine Critical Care Medicine; FAMILY PHYSICIAN Nurse Practitioner | DX: G47.33 Obstructive sleep apnea (adult) (pediatric) (principal); R09.02 Hypoxemia | CPT/HCPCS: 95800 ==

== ENCOUNTER 2024-12-02 14:52 | Inpatient (IN) | payer OTHER, SELFPAY ==
[2024-12-02] VITALS (7 sets, daily range): BP systolic 91–105; BP diastolic 53–62; BMI 26.0
[2024-12-02 11:57] LABS: ALT (SGPT) 22 U/L (0-35); AST (SGOT) 28 U/L (14-36); Albumin 4.6 g/dl (3.5-5.0); Alkaline Phosphatase 74 U/L (38-126); Blood Urea Nitrogen 12 mg/dl (7-17); Calcium 9.1 mg/dl (8.4-10.2); Carbon Dioxide 31 mmol/L (22-30); Chloride 95 mmol/L (98-107); Estimated Creatinine Clearance 107 ml/min; Glucose 169 mg/dl (70-99); Potassium 3.9 mmol/L (3.5-5.1); Sodium 136 mmol/L (135-145); Total Bilirubin 1.9 mg/dl (0.2-1.3); Total Protein 7.9 g/dl (6.3-8.2); eGFR > 60.00
[2024-12-02 12:08] LABS: COVID-19 Antigen Negative (Negative); NT-proBNP 2320 pg/ml; Troponin I < 0.012 ng/ml
[2024-12-02 12:19] LABS: % Basophils 0.2 % (0-2); % Eosinophils 0.2 % (0-6); % Immature Granulocytes 0.3 % (0-0.5); % Monocytes 8.8 % (1.7-9.3); % Neutrophils 80.5 % (42.2-75.2); Absolute Lymphocytes 0.6 10^3/uL (1.2-3.4); Absolute Monocytes 0.5 10^3/uL (0.1-0.6); Absolute Neutrophils 4.7 10^3/uL (1.4-6.5); Hemoglobin 12.2 g/dL (12.0-16.0); Mean Corp Hgb Conc. 33.9 g/dL (33.0-37.0); Mean Corpuscular Hgb 31.5 pg (27.0-31.0); Mean Platelet Volume 10.2 fL (7.4-10.4); Nucleated Red Blood Cells % 0 %; Platelet Count 89 10^3/uL (130-400); Red Blood Cell Count 3.87 10^6/uL (4.20-5.40); Red Cell Dist. Width 14.9 % (11.5-14.5); White Blood Cell Count 5.9 10^3/uL (4.8-10.8)
[2024-12-02 12:32] LABS: Lactic Acid 1.8 mmol/L (0.7-2.0)
--- NOTE | 2024-12-02 13:11 | ED.GENMED ---
History of Present Illness
General
Chief Complaint: Breathing Problem
Source: patient
Exam Limitations: none
Time Seen by Provider: 12/02/24 11:08
Nursing documentation reviewed up to this point in time: agreed with
History of Present Illness
History of Present Illness:
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 tach episodes requiring a pacer, liver cirrhosis from CHF, pheochromocytoma status post adrenalectomy,
restrictive lung disease not normally on oxygen who presents with shortness of breath since yesterday with a fever to 100.3 and a slight cough. She has a headache as well. She just feels generally wiped out. Patient feels less short of breath on
oxygen now. She apparently was here 5 days ago for tachycardia. She was found to be in a junctional rhythm. Patient had been taking an extra dose of her Lasix, 40 mg rather than 20 for a couple of days and they thought she was dehydrated. They
gave her some Lopressor and fluids and magnesium and she resolved. Patient went home and says that she did gain a few pounds over the next day but then feels like she dropped it again. It does not sound like she weighs herself every single day.
Patient has been taking the Lasix 20 mg since discharge but did not take today's dose.
She has not had a fever today
No sore throat, no vomiting, no diarrhea,
Past History
Past History
ED Past Medical History: Arrthythmia, CHF (HFpEF), NIDDM and Other (Transposition of the great vessels, sick sinus syndrome, restrictive lung disease)
ED Past Surgical History: Cardiac and Other (L adrenalectomy)
Social History
Tobacco: Non-smoker
Alcohol: None
Drug: None
Personal:
Living: with family
Employment: Employed
Family History
Family History: Other (Noncontributory)
Review of Systems
Review of Systems
Allergies reviewed?: Yes
All Other Systems: Not applicable
Phy Exam
Physical Exam
Physical Exam:
GENERAL: Alert , tachypneic
EYE: pupils equal and reactive
NECK: Supple
ENT: b/l TM s clear, pharynx erythematous but no tonsillar hypertrophy or exudates
CARDIAC: Regular rate and rhythm, no edema
LUNGS: Diminished right-sided, crackles left base, faint end expiratory wheezing, mild tachypnea
ABDOMEN: Soft, without focal tenderness, no r/g, no cvat, normal bowel sounds
NEUROLOGICAL: Alert and oriented, no focal neuro deficits
SKIN: Warm and dry, skin intact.
MUSCULOSKELETAL: No edema, well perfused.
PSYCH: Normal and appropriate interaction.
Scores
Heart Failure Risk
Heart Failure Risk Score: Yes
History of Stroke or TIA: No
History of intubation for respiratory distress: No
Heart rate on ED arrival >/= 110: No
SaO2 <90% on arrival on room air: Yes
HR >/=110 during 3min walk test (or too ill to perform test): Yes
ECG has acute ischemic changes: No
Urea >/=12mmol/L (BUN 33.6mg/dL): No
Serum CO2>/=35mmol/L: No
Troponin I or T elevated to NH Level (0.4mg/dL): No
NT-proBNP >/=5,000ng/L (5,000pg/ml): No
HF Risk Score: 3
Admission Status: HIGH RISK 15.9% Consider SNF treatment or admission to hospital
Sepsis
Sepsis Screening
Sepsis Assessment: Sepsis Ruled Out
Sepsis Screen
Sepsis Screen: Sepsis Ruled Out
Date: 12/02/24
Time: 17:15
Course
Orders/Labs/Results
Orders:
Orders
12/02/24 11:17
EKG [Electrocardiogram (*1)] Urgent
Reason for Study: Shortness of Breath
EKG- Treatment ONCE
12/02/24 11:28
COVID-19 Antigen Urgent
Source: Nasal Swab
Complete Blood Count/With Diff Urgent
Comprehensive Metabolic Panel Urgent
NT-proBNP Urgent
Troponin I Urgent
Influenza A+B Rapid Molecular Urgent
[facility] Source: Nasal Swab
Specimen Description:
12/02/24 11:51
CR Chest - 2 Views Urgent
Comment:
Reason For Exam: hypoxic, restrictive lung dz, fever
12/02/24 12:11
Lactic Acid Urgent
12/02/24 13:11
Acetaminophen [Tylenol] 650 mg PO NOW STA
Furosemide [Lasix] 20 mg IV NOW STA
12/02/24 14:27
Admit/Transfer Patient As Directed
Co-Sign Provider:
Level of Care: Inpatient admission
Assign to:: Telemetry
Physician / Group: Hospitalist
Diagnosis: Heart failure
Reason for Telemetry: Subacute Heart Failure
Date to Stop Telemetry: 12/04/24
Time to Stop Telemetry: 11:00
Reason for Hospitalization: Heart failure
Expected length of stay greater than two midnights?: Yes
ELOS- Estimated Length of Stay in days: 3
I certify the patient meets the requirements for IP care: Yes
PRN Pain Medication Management As Directed
May give lesser potent ordered pain med per pt: Yes
preference::
Protocol:: Medication orders for pain may be administered in a
manner that supports deferring to patient preference
when the pt is:
- Requesting an ordered lesser potent pain medication.
Least to most potent pain medications are defined
as: acetaminophen < NSAID < tramadol < opioids
(morphine, oxycodone, hydromorphone).
- Requesting a lesser dose of the same medication IF
ORDERED.
- Requesting a less intrusive route of administration
if both routes are prescribed by the provider (PO <
IV).
12/02/24 14:38
Code Status As Directed
Resuscitation Status: Full Code
12/02/24 Dinner
2000 calorie (17 carb) Diabetic
At Your Request: Full Participation
Does patient need a safe tray?: No
Diabetic Diet: Sodium, 2 Gram
12/02/24 15:34
Troponin I Q6H
Comment: at admission & every 6 hours x 2 (3 total), ECG to be done with each level
Buspirone [Buspar] 10 mg PO BIDPRN PRN
12/02/24 15:34
CARDIOLOGY CONSULT Routine
Consulting Provider: Lito Louise
Was physician already notified: Yes
Reason for consult: heart failure
Activity As Directed
Activity Level: Ambulate
Intake/ Output As Directed
Frequency: Per unit guidelines
Pneumatic Compression Sleeves As Directed
Type: Knee high
Vital Signs As Directed
Frequency: Other
Additional Instructions:: Q12 or per unit guidelines if more frequent.
Weight As Directed
Frequency: Daily
Type of Scale: Standing Scale
Comment: Daily morning weight. If unable to stand, use balanced bed scale.
Weight As Directed
Frequency: Once
Type of Scale: Standing Scale
Comment: Upon Admission. If unable to stand, use balanced bed scale.
Pulse Ox/cont/shift [RESP] Routine
Quantity: 1
Special Instructions: Daily pulse oximetry at rest. If greater than 92% at rest also obtain pulse oximetry
while ambulating as tolerated.
DX Deep Vein Thrombosis Video Routine
12/02/24 15:54
Ondansetron HCl [Zofran] 8 mg PO BIDPRN PRN
12/02/24 20:00
Budesonide/Formoterol 80/4.5 [Symbicort 80/4.5 Mcg Inhaler] 2 puff INH R BID
Metformin Extended Release [Glucophage Xr Extended Release] 500 mg PO BID
Pantoprazole [Protonix] 40 mg PO BID
12/02/24 21:34
Troponin I Q6H
Comment: at admission & every 6 hours x 2 (3 total), ECG to be done with each level
12/02/24 22:00
Ferrous Sulfate [Feosol] 325 mg PO HS
Metoprolol Xl [Toprol Xl] 25 mg PO HS
Sertraline HCl [Zoloft] 150 mg PO HS
Spironolactone [Aldactone] 12.5 mg PO HS
12/03/24 03:34
Troponin I Q6H
Comment: at admission & every 6 hours x 2 (3 total), ECG to be done with each level
12/03/24 06:00
Complete Blood Count/No Diff IN AM
Comprehensive Metabolic Panel IN AM
Magnesium IN AM
TSH Reflex To Free T4 IN AM
12/03/24 08:00
Dapagliflozin [Farxiga] 10 mg PO DAILY
Furosemide [Lasix] 40 mg IV DAILY
12/04/24 11:00
DC Protocol for Telemetry ONCE
Abnormal Lab Results
12/02/24
11:28
RBC 3.87 L 10^6/uL
(4.20-5.40)
Hct 36.0 L %
(37.0-47.0)
MCH 31.5 H pg
(27.0-31.0)
RDW 14.9 H %
(11.5-14.5)
Plt Count 89 L 10^3/uL
(130-400)
Absolute Lymphs (auto) 0.6 L 10^3/uL
(1.2-3.4)
Neutrophils % 80.5 H %
(42.2-75.2)
Lymphocytes % 10.0 L %
(20.5-51.1)
Chloride 95 L mmol/L
(98-107)
Carbon Dioxide 31 H mmol/L
(22-30)
Glucose 169 H mg/dl
(70-99)
Total Bilirubin 1.9 H mg/dl
(0.2-1.3)
12/02/24 11:28
12/02/24 11:28
Vital Signs
Initial and Last Documented VS:
Initial Vital Signs
Temp Pulse Resp BP Pulse Ox
36.8 C 85 18 91/57 85
12/02/24 11:01 12/02/24 11:01 12/02/24 11:01 12/02/24 11:01 12/02/24 11:01
Last Documented Vital Signs
Temp Pulse Resp BP Pulse Ox
36.8 C 76 16 98/53 96
12/02/24 15:43 12/02/24 15:43 12/02/24 15:43 12/02/24 15:43 12/02/24 16:26
MDM/Problems Addressed
Differential Diagnosis Includes:
pulm edema, chf, pneuomina, flu
MDM/Problems Addressed:
49 y/o F chronically ill ; CHD s/p TGA surgery, RLD not normally on O2, CHF on lasix
here for fatrigue, headache, low grade temp, sob x 2 days;
mild cough;
was here 5 days ago after being tachycardic, likely from taking too much lasix 40 mg x 2 days; given IVF 1 liter and mag and tachycardia resolved
doesn't weigh self daily but doesn't feel overloaded, just little puffiness in hands yesterday
pulse ox 85% RA, 93% on 3L
crackles L base
bnp 2000+
cxr mild pulm edema
flu/covid neg, normal wbc;
*Critical Care Note
Total Time (30-74mins, 75-104mins- exclusive of procedures): Not Applicable
ED Attending Note
-
Portions of this chart may have been created with voice recognition software.� Occasional wrong word or��sound alike� substitutions may have occurred due to the inherent limitations of voice recognition software.
Discharge Plan
Departure
Patient Disposition: Admit
Date of Disposition: 12/02/24
Time of Disposition: 13:18
Admit to: Telemetry
Presentation/result/management discussed w/ accepting MD/DO: Hospitalist
Covid-19: Not Applicable
Discharge Problem:
CHF (congestive heart failure)
Interventions
Interventions:
*Risk Screen - Suicide Last Done: 12/02/24 11:01
*General Assessment Last Done: 12/02/24 11:01
*Neglect/Abuse Screening Last Done: 12/02/24 11:01
ED- Fall Risk Assessment Last Done: 12/02/24 11:36
*ED COVID-19 Vaccine History Last Done: 12/02/24 11:36
*Nursing Disposition Last Done: 12/02/24 16:20
ED- Cardiac Assessment Last Done: 12/02/24 11:36
ED- Pulmonary Assessment Last Done: 12/02/24 11:36
Discharge Date and Time
Discharge Date/Time: 12/02/24 16:20
[2024-12-02] MEDS: TYLENOL 650 MG PO ×2 (13:26→20:02)
[2024-12-02] MEDS: LASIX 20 MG IV (13:27)
--- NOTE | 2024-12-02 14:05 | HPS.HSE ---
Family Physician
-
Family Physician: Jacklyn Headley
Chief Complaint
-
Shortness of breath
History of Present Illness
49-year-old woman with a history of:
a congenital heart defect (status post transposition of the great vessels surgery),
subsequent V. tach episodes requiring a pacer,
liver cirrhosis from CHF,
pheochromocytoma status post adrenalectomy,
restrictive lung disease not normally on oxygen
presents with shortness of breath since yesterday with a temp of 100.3 and a slight cough, a headache, and feels generally wiped out. She feels less short of breath on oxygen. She apparently was at ER 5 days ago for tachycardia. She was found
to be in a junctional rhythm. Since that time she had been taking an extra dose of her Lasix, 40 mg po rather than 20 po for a couple of days and the assessment was that she was dehydrated. In the ED she was given Lopressor and fluids and
magnesium and her symptoms resolved. She has been taking the Lasix 20 mg since discharge but did not take today's dose.
She has not had a fever today, No sore throat, no vomiting, no diarrhea. At the time of my exam she was comfortable, but had a cough every 5 minutes or so. Chest xray in the ER showed:
Cardiomegaly with mild pulmonary edema
Stable postoperative changes
Medical History
Past Medical History
Past Medical History: Reports Other
Additional Past Medical History:
Arrthythmia (tachycardia),
CHF (HFpEF),
NIDDM
Transposition of the great vessels,
sick sinus syndrome,
restrictive lung disease
L adrenalectomy
Vertiginous migraine
Liver disease, unspecified
Anxious depression
Pulmonary stenosis
Primary Pulmonary HTN
GERD
Extra-Adrenal Pheochromocytoma-Left Adrenalectomy
Adrenal insufficiency
Liver fibrosis per CT 2014
Portal vein Thrombosis
Elevated LFTs
Scoliosis
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
Uterine bleeding
cardiac stents 2
diabetic neuropathy
[place] Teeth Extraction 1983
Procedure: Tonsillectomy 01/02/2010
Procedure: Stenting of IVC/ SVC 2009
pacemaker replacement 2015
Past Surgical History: Reports Other (See above)
Social History
Tobacco: Non-smoker
Alcohol: None
Drug: None
Personal:
Living: With Family
Employment: Employed
Family History
Family History: Not pertinent
Allergies / Home Medications
Allergies reflects when Allergies were last updated in [employer].
Home Medications with original date entered in [employer]
Allergy/Medication List:
Allergies
Allergy/AdvReac Type Severity Reaction Status Date / Time
codeine Allergy Unknown Verified 12/02/24 11:01
meperidine Allergy Unknown Verified 12/02/24 11:01
pineapple [Pineapple] Allergy Unknown Verified 12/02/24 11:01
Home Medications
metoprolol succinate 25 mg tablet,extended release 24 hr 25 mg PO HS Blood Pressure 07/06/11
canagliflozin 100 mg tablet (Invokana) 100 mg PO DAILY Diabetes 12/20/18
losartan 25 mg tablet 25 mg PO HS Blood Pressure 12/20/18
spironolactone 25 mg tablet 12.5 mg PO HS Fluid Retention/Swelling 12/20/22
buspirone 10 mg tablet 10 mg PO BIDPRN PRN anxiety 08/05/24
fluticasone fur. 100 mcg-umeclid 62.5 mcg-vilant 25 mcg inhalat.powder (Trelegy Ellipta) 1 inh inhalation R HS Lung/Breathing Issues 08/05/24
galcanezumab-gnlm 120 mg/mL subcutaneous pen injector (Emgality Pen) 120 mg SC QMONTH migraine 08/05/24
metformin 500 mg tablet,extended release 24 hr 500 mg PO BID Diabetes 08/05/24
omeprazole 40 mg capsule,delayed release 40 mg PO BID Gastrointestinal Issue 08/05/24
ondansetron HCl 8 mg tablet 8 mg PO BIDPRN PRN nausea/vomiting 08/05/24
sertraline 100 mg tablet 150 mg PO HS Depression 08/05/24
ferrous sulfate 325 mg (65 mg iron) tablet 325 mg PO HS 12/02/24
furosemide 20 mg tablet 20 mg PO DAILY 12/02/24
Review of Systems
-
History Source: Patient
A 12 point ROS was completed and negative except as noted: Yes
Physical Exam
Vital Signs
Vital Signs
Temp Pulse Resp BP Pulse Ox
98.3 F 73 22 101/46 94
12/02/24 11:01 12/02/24 13:27 12/02/24 12:11 12/02/24 13:27 12/02/24 12:11
Physical Exam
General: Well Developed, Well Nourished, No Apparent Distress and Comfortable
HEENT: NormoCephalic, Nose Appears Normal and Ears Appear Normal
Respiratory: Rhonchi, Crackles and Decreased Breath Sounds
Cardiac: S1/S2 and Regular Rhythm
GI: Soft, Non Tender and Non Distended
Musculoskeletal: No Clubbing, No Cyanosis and Edema, Left Upper Extremity
Skin: Warm and Dry
Neuro: Awake, Alert, Oriented and AO x 3
Psych: Calm
Laboratory Results
-
12/02/24 11:28
12/02/24 11:28
Laboratory Results
Lactic Acid 1.8 mmol/L (0.7-2.0) 12/02/24 12:11
Total Bilirubin 1.9 mg/dl (0.2-1.3) H 12/02/24 11:28
AST 28 U/L (14-36) 12/02/24 11:28
ALT 22 U/L (0-35) 12/02/24 11:28
Alkaline Phosphatase 74 U/L (38-126) 12/02/24 11:28
Troponin I < 0.012 ng/ml 12/02/24 11:28
Data Reviewed
-
Lab Data: Labs Reviewed by me
Impression/Plan
-
IMPRESSION:
49 woman with complex cardiopulmonary history comes in with cough, shortness of breath.
BNP 2,320
CXR sows mild pulm edema
Changes on ECG (flipped Ts)
PLAN:
1. Heart failure with preserved EF. with low BP and cough in setting of the following heart/lung issues:
Transposition of the great vessels,
sick sinus syndrome,
restrictive lung disease
Pulmonary stenosis
Primary Pulmonary HTN
cardiac stents 2
Stenting of IVC/ SVC 2009
pacemaker replacement 2015
Plan is as follows:
Diurese with IV lasix (initial dose to be 40 mg IV)
Tele
HEDY
Cardiology consult
2. Cough and elevated temp, WBC 5.9
No obvious evidence of bacterial PNA or other infection
Probable viral URI
Follow closely - but no abx for right now.
3. Total Bili of 1.9, new issue, h/o chronic liver disease
May be from increased vascular congestion
Check trend tomorrow
4. Low platelet of 89 -chronic, at baseline level
Follow daily
Nothing to do at this time
Full code
VCD for DVTp
--- NOTE | 2024-12-02 14:21 | CON.CAR ---
Consultation
Consultation Request
Date/Time Consultation Requested: December 02, 2024
Date/Time Consultation Performed: December 02, 2024
Requesting Provider: hospitalist
Performing Provider: Dr. Lito Louise
Reason for Consultation: progressive dyspnea, CHF
Medical History
-
Chief Complaint: progressive dyspnea
History of Present Illness:
PCP: Dr. Hedaley
Cardiology: Dr. G[facility]mez Hunter at [facility],
She presents to the emergency department with approximately 2 days of progressive dyspnea on exertion. She tells me that she has not taken her Lasix for the past 2 days because she thought she was coming down with a viral illness. Her appetite
was not great. She thought she felt some fevers at home but never took her temperature. No chills. No nausea or vomiting. No diarrhea.
On presentation to the emergency department physical exam is consistent with congestive heart failure and additional supportive findings include elevated proBNP at 2320 and chest x-ray finding mild pulmonary edema
cardiology is consulted for management of her decompensated heart failure with preserved ejection fraction in the setting of repaired congenital heart disease
Past medical history:
Chronic HFpEF, CHF-NYHA class 2
Congenital heart disease
Transposition of great vessels.
Balloon septostomy, age 2 days
Juhi Daiana shunt, age 2 months
Mustard procedure with atrial baffling, age 10 months
Epicardial right ventricular lead placement, age 11, with redundant second lead. First lead fractured with switch to second leads/p PPM with abdominal generator intracardiac atrial lead system placed approximately 2007
Restrictive lung disease felt to be secondary to kyphosis
Chronically elevated right hemidiaphragm
Chronic thrombocytopenia
Type 2 diabetes
Migraines
Cognitive impairment
h/o CVA
Diabetic neuropathy
History of pheochromocytoma s/p resection
History of portal vein thrombosis
Hepatic fibrosis/cirrhosis?
SVC and IVC stents for presumed anastomotic stenosis
Echo 08/07/24: LV is sub pulmonic and dilated, mild LVH with a pacing wire. LVEF is 60-65%. RVH and enlarged RV size with preserved systolic function, the RV is systemic. Mildly dilated RA. No MR. Mitral valve is sub pulmonary. No and trace aortic
regurgitation, aortic valve arises anteriorly from the systemic right ventricle, mod TR with PAP 75-80 mmHg assuming a right atrial pressure of 3 mmHg. The tricuspid valve is systemic. No evidence of flow acceleration within the pulmonary venous
baffle. There is a stent in the superior systemic venous baffle. There is a stent in the inferior systemic venous baffle also. No obvious baffle leak is seen on color Doppler. Compared to previous echo 04/21/23, the pulmonary artery pressures have
increased from 55 to 75 mmHg. Otherwise no significant change.
Social History
Tobacco: Non-Smoker
Alcohol: None
Drug: None
Personal:
Living: With Family
Employment: Employed
Family History
Family History: Reviewed & Not Pertinent
Allergies / Home Medications
Allergy/AdvReac Type Severity Reaction Status Date / Time
codeine Allergy Unknown Verified 12/02/24 11:01
meperidine Allergy Unknown Verified 12/02/24 11:01
pineapple [Pineapple] Allergy Unknown Verified 12/02/24 11:01
�Medication �Instructions �Recorded �Confirmed �Type
metoprolol succinate 25 mg 25 mg PO HS Blood Pressure 07/06/11 12/02/24 History
tablet,extended release 24 hr
canagliflozin 100 mg tablet 100 mg PO DAILY Diabetes 12/20/18 12/02/24 History
(Invokana)
losartan 25 mg tablet 25 mg PO HS Blood Pressure 12/20/18 12/02/24 History
spironolactone 25 mg tablet 12.5 mg PO HS Fluid 12/20/22 12/02/24 History
Retention/Swelling
buspirone 10 mg tablet 10 mg PO BIDPRN PRN anxiety 08/05/24 12/02/24 History
fluticasone fur. 100 mcg-umeclid 1 inh inhalation R HS 08/05/24 12/02/24 History
62.5 mcg-vilant 25 mcg Lung/Breathing Issues
inhalat.powder (Trelegy Ellipta)
galcanezumab-gnlm 120 mg/mL 120 mg SC QMONTH migraine 08/05/24 12/02/24 History
subcutaneous pen injector
(Emgality Pen)
metformin 500 mg tablet,extended 500 mg PO BID Diabetes 08/05/24 12/02/24 History
release 24 hr
omeprazole 40 mg capsule,delayed 40 mg PO BID Gastrointestinal Issue 08/05/24 12/02/24 History
release
ondansetron HCl 8 mg tablet 8 mg PO BIDPRN PRN nausea/vomiting 08/05/24 12/02/24 History
sertraline 100 mg tablet 150 mg PO HS Depression 08/05/24 12/02/24 History
ferrous sulfate 325 mg (65 mg 325 mg PO HS 12/02/24 12/02/24 History
iron) tablet
furosemide 20 mg tablet 20 mg PO DAILY 12/02/24 12/02/24 History
Review of Systems
-
History Source: Patient
All other systems: Negative unless noted
Constitutional: Fever and Fatigue
EENT: No Symptoms
Respiratory: Trouble Breathing
Cardiac: No Symptoms
Abdomen/GI: No Symptoms
: No Symptoms
Musculoskeletal: No Symptoms
Skin: No Symptoms
Neurological: No Symptoms
Hematologic/Lymphatic: No Symptoms
Physical Exam
Vital Signs
Temp Pulse Resp BP Pulse Ox
98.3 F 73 22 101/46 94
12/02/24 11:01 12/02/24 13:27 12/02/24 12:11 12/02/24 13:27 12/02/24 12:11
Lab Results
12/02/24 11:28
12/02/24 11:28
Troponin I < 0.012 ng/ml 12/02/24 11:28
Kna-K-Xnkcvgkzjam Pept 2320 pg/ml 12/02/24 11:28
Physical Exam
General: Well Developed, Well Nourished, No Apparent Distress and Comfortable ( sitting up in stretcher)
HEENT: Normocephalic, Anicteric and Moist Mucous Membranes
Respiratory: Clear and Non Labored Respirations
Cardiac: S1/S2, Regular Rhythm and Murmur ( there is a 1/6 apical holosystolic murmur)
Breast: Deferred by me
GI: Soft, Non Tender, Non Distended and Normal Bowel Sounds
Rectal: Deferred by Provider
Musculoskeletal: No Clubbing, No Cyanosis and Edema ( there is trace pretibial edema bilaterally)
Skin: Warm and Dry
Neuro: Awake, Alert, Oriented and AO x 3
Psych: Calm
Impression / Plan
-
PCP: Dr. Headley
Cardiology: Dr. Gómez Hunter at [facility],
Impression
Acute on Chronic HFpEF, CHF-NYHA class 2
Congenital heart disease
Transposition of great vessels.
Balloon septostomy, age 2 days
Juhi Daiana shunt, age 2 months
Mustard procedure with atrial baffling, age 10 months
Epicardial right ventricular lead placement, age 11, with redundant second lead. First lead fractured with switch to second leads/p PPM with abdominal generator intracardiac atrial lead system placed approximately 2007
Restrictive lung disease felt to be secondary to kyphosis
Chronically elevated right hemidiaphragm
Chronic thrombocytopenia
Type 2 diabetes
Migraines
Cognitive impairment
h/o CVA
Diabetic neuropathy
History of pheochromocytoma s/p resection
History of portal vein thrombosis
Hepatic fibrosis/cirrhosis?
SVC and IVC stents for presumed anastomotic stenosis
Echo 08/07/24: LV is sub pulmonic and dilated, mild LVH with a pacing wire. LVEF is 60-65%. RVH and enlarged RV size with preserved systolic function, the RV is systemic. Mildly dilated RA. No MR. Mitral valve is sub pulmonary. No and trace aortic
regurgitation, aortic valve arises anteriorly from the systemic right ventricle, mod TR with PAP 75-80 mmHg assuming a right atrial pressure of 3 mmHg. The tricuspid valve is systemic. No evidence of flow acceleration within the pulmonary venous
baffle. There is a stent in the superior systemic venous baffle. There is a stent in the inferior systemic venous baffle also. No obvious baffle leak is seen on color Doppler. Compared to previous echo 04/21/23, the pulmonary artery pressures have
increased from 55 to 75 mmHg. Otherwise no significant change.
Recommendations:
Recent decompensation of heart failure with preserved ejection fraction is likely related to medical noncompliance as she has missed her typical dosing of Lasix over at least the past 2 days
Last admission she did well with Lasix 20 mg IV for gentle diuresis
- Lasix 20 mg IV now and daily
- Continue Toprol, spironolactone, and losartan.
- check echocardiogram this admission to reassess given her recent decompensation of heart failure
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
Data Reviewed
-
EKG: Tracing Personally Visualized and interpreted
Radiology: Image Personally Visualized and interpreted and Report Reviewed by me
Medical Tests (Nuc Med, Echo etc): Report Reviewed by me
Labs: Labs Reviewed by me
Old Records: Reviewed
--- NOTE | 2024-12-02 15:47 | PTCARENOTE ---
12/02- Patient transferred and oriented to unit without issue. [id number], Telemetry #[id number] currently VPaced with PVCs. Patient denies any needs at this time.
[2024-12-02 16:55] LABS: Glucose - Point of Care 170 mg/dl (70-99)
[2024-12-02] MEDS: PROTONIX 40 MG PO (20:02)
[2024-12-02] MEDS: GLUCOPHAGE XR EXTENDED RELEASE 500 MG PO (20:02)
[2024-12-02] MEDS: NON-FORMULARY ITEM 1 PUFF INH (21:15)
[2024-12-02 21:27] LABS: Glucose - Point of Care 140 mg/dl (70-99)
[2024-12-02] MEDS: ZOLOFT 150 MG PO (21:44)
[2024-12-02] MEDS: TOPROL XL 25 MG PO (21:47)
[2024-12-02] MEDS: FEOSOL 325 MG PO (21:47)
[2024-12-02] MEDS: ALDACTONE 12.5 MG PO (21:49)
[2024-12-02 22:30] LABS: Troponin I < 0.012 ng/ml
[2024-12-03 03:00] VITALS: BP 114/53
[2024-12-03 05:29] LABS: Hematocrit 35.9 % (37.0-47.0); Hemoglobin 12.1 g/dL (12.0-16.0); Mean Corp Hgb Conc. 33.7 g/dL (33.0-37.0); Mean Corpuscular Hgb 31.8 pg (27.0-31.0); Mean Corpuscular Volume 94.2 fL (81.0-99.0); Mean Platelet Volume 10.8 fL (7.4-10.4); Platelet Count 85 10^3/uL (130-400); Red Blood Cell Count 3.81 10^6/uL (4.20-5.40); Red Cell Dist. Width 14.7 % (11.5-14.5); White Blood Cell Count 5.2 10^3/uL (4.8-10.8)
[2024-12-03 05:53] LABS: ALT (SGPT) 21 U/L (0-35); AST (SGOT) 32 U/L (14-36); Albumin 4.4 g/dl (3.5-5.0); Alkaline Phosphatase 83 U/L (38-126); Blood Urea Nitrogen 10 mg/dl (7-17); Carbon Dioxide 28 mmol/L (22-30); Chloride 97 mmol/L (98-107); Estimated Creatinine Clearance 107 ml/min; Glucose 146 mg/dl (70-99); Magnesium 1.9 mg/dl (1.6-2.3); Potassium 4.2 mmol/L (3.5-5.1); Sodium 137 mmol/L (135-145); Total Bilirubin 1.7 mg/dl (0.2-1.3); Total Protein 7.9 g/dl (6.3-8.2); eGFR > 60.00
[2024-12-03 06:00] VITALS: BMI 26.1
[2024-12-03 06:03] LABS: Troponin I < 0.012 ng/ml
[2024-12-03 06:22] LABS: TSH Reflex To Free T4 2.15 uIU/ml (0.47-4.68)
[2024-12-03 07:00] VITALS: BP 95/45
--- NOTE | 2024-12-03 07:38 | W.PN.HOSP.TC ---
Today's Communication/Plan
-
see bold
Assessment / Plan
Assessment / Plan
Gen: NAD, AAOx3.
Eyes: EOMI, PERRLA, no scleral icterus.
Neck: supple.
CV: RRR, +S1/S2, no m/r/g.
Resp: faint rales L base
Abd: +BS, soft, NT, ND
Skin: No rashes.
Neuro: CN 2-12 intact, non-focal.
Psych: Normal mood and affect.
CXR: Cardiomegaly with mild pulmonary edema. Stable postoperative changes.
Acute on chronic HFpEF:
-proBNP 2,320, CXR with pulm edema
-trop NEG x 2
-check echo
-cont IV Lasix
-daily wts, I/Os
-cont BB/Aldactone
-cards following
DM2 with diabetic neuropathy:
-cont Metformin/Farxiga
-SSI/accuchecks
Other problems:
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
Cardiogenic cirrhosis
Pheochromocytoma s/p adrenalectomy
h/o portal vein thrombosis
Minimally elevated bilirubin
Chronic thrombocytopenia
Restrictive lung disease thought to be due to kyphosis
Migraines
Cognitive impairment
h/o CVA
Balloon septostomy, age 2 days
Juhi Daiana shunt, age 2 months
Mustard procedure with atrial baffling, age 10 months
Epicardial right ventricular lead placement, age 11, with redundant second lead. First lead fractured with switch to second leads/p PPM with abdominal generator intracardiac atrial lead system placed approximately 2007.
SSS s/p PPM
Pulmonary HTN
FULL/SCDs
Total time spent on today's encounter was 50 minutes which included time spent in counseling the patient/family regarding diagnosis and treatment plan as listed above, goals of care, and symptom management. Case was discussed with nursing staff,
specialists, and care coordinators/case management. All labs and imaging personally reviewed by me. Remainder the time spent in detailed review of previous records, lab data, imaging, and other medical provider documentation.
Anticipated Discharge: 24 - 48 hours
Subjective/Interval History
-
Date of Service: December 03, 2024
No new complaints.
Objective Data
-
Labs:
Laboratory Results
12/03/24
04:51
WBC 5.2
Hgb 12.1
Hct 35.9 L
Plt Count 85 L
Sodium 137
Potassium 4.2
Chloride 97 L
Carbon Dioxide 28
BUN 10
Creatinine 0.5 L
Glucose 146 H
Calcium 9.0
Total Bilirubin 1.7 H
AST 32
ALT 21
Alkaline Phosphatase 83
Vital Signs:
Vital Signs
Temp Pulse Resp BP Pulse Ox
97.4 F 73 20 95/45 97
12/03/24 07:00 12/03/24 07:00 12/03/24 07:00 12/03/24 07:00 12/03/24 07:00
I&O
12/02/24 12/03/24 12/04/24
06:59 06:59 06:59
Intake Total 480 / 480
Balance 480 / 480
[2024-12-03] MEDS: GLUCOPHAGE XR EXTENDED RELEASE 500 MG PO ×2 (09:40→20:30)
[2024-12-03] MEDS: PROTONIX 40 MG PO ×2 (09:40→20:27)
[2024-12-03] MEDS: FARXIGA 10 MG PO (09:40)
[2024-12-03] MEDS: TYLENOL 650 MG PO ×2 (09:46→17:55)
[2024-12-03 10:03] LABS: Glucose - Point of Care 196 mg/dl (70-99)
[2024-12-03] MEDS: LASIX 40 MG IV (10:22)
[2024-12-03 11:19] VITALS: BP 114/59
[2024-12-03 11:50] LABS: Glucose - Point of Care 183 mg/dl (70-99)
--- NOTE | 2024-12-03 13:45 | W.PN.CARDCBS ---
Addendum entered and electronically signed by Sarthak Rodriguez MD 12/03/24 18:06:
Patient still on oxygen, feels better overall, receiving furosemide 40 mg IV daily
Current meds: Farxiga 10 mg a day, iron, metformin 500 twice daily, metoprolol ER 25 mg at bedtime, pantoprazole 40 mg p.o. twice daily, sertraline 150 mg at bedtime, spironolactone 12.5 mg at bedtime, furosemide 40 mg IV daily, Trelegy, insulin
98/55, pulse 72, respiratory rate 18, afebrile, weight is 73.2 kg, which is stable, no distress lungs clear, neck veins hard to assess, regular rate and rhythm without obvious murmurs, abdomen benign extremities with small amount of edema
Hemoglobin is 12.1, platelets are 85, BUN and creatinine are 10 and 0.5, bilirubin is 1.7
Impression:
Acute on chronic heart failure with preserved EF and patient with d-transposition of the great arteries and status post mustard procedure
Other diagnoses as below
Plan:
Overall, she is relatively stable. Continue IV Lasix. Delicate balance between dehydration and volume overload as furosemide was held for URI with dehydration and patient subsequently with admission. proBNP was 1999 320 and during prior hospital
stay for HFpEF in July
Continue Farxiga and spironolactone. Hopefully for transition to oral furosemide in 24 to 48 hours.
Original Note:
Today's Communication / Plan
-
echo today
Ongoing IV gentle diuresis
Wean oxygen as able
Impression / Plan
-
PCP: Dr. Headley
Cardiology: Dr. Gómez Hunter at [facility],
Impression
Presented 12/02/2024 with 2 days of progressive dyspnea on exertion
Acute on Chronic HFpEF, CHF-NYHA class 2320
Congenital heart disease
Transposition of great vessels.
Balloon septostomy, age 2 days
Juhi Daiana shunt, age 2 months
Mustard procedure with atrial baffling, age 10 months
Epicardial right ventricular lead placement, age 11, with redundant second lead. First lead fractured with switch to second lead s/p PPM with abdominal generator intracardiac atrial lead system placed approximately 2007
[employer]tronic pacemaker
Restrictive lung disease felt to be secondary to kyphosis
Chronically elevated right hemidiaphragm
Chronic thrombocytopenia
Type 2 diabetes
Migraines
Cognitive impairment
h/o CVA
Diabetic neuropathy
History of pheochromocytoma s/p resection
History of portal vein thrombosis
Hepatic fibrosis/cirrhosis?
SVC and IVC stents for presumed anastomotic stenosis
Echo 08/07/24: LV is sub pulmonic and dilated, mild LVH with a pacing wire. LVEF is 60-65%. RVH and enlarged RV size with preserved systolic function, the RV is systemic. Mildly dilated RA. No MR. Mitral valve is sub pulmonary. No and trace aortic
regurgitation, aortic valve arises anteriorly from the systemic right ventricle, mod TR with PAP 75-80 mmHg assuming a right atrial pressure of 3 mmHg. The tricuspid valve is systemic. No evidence of flow acceleration within the pulmonary venous
baffle. There is a stent in the superior systemic venous baffle. There is a stent in the inferior systemic venous baffle also. No obvious baffle leak is seen on color Doppler. Compared to previous echo 04/21/23, the pulmonary artery pressures have
increased from 55 to 75 mmHg. Otherwise no significant change.
Echocardiogram 12/03/2024: ordered/pending
Recommendations:
Patient reports she had viral illness last week with sore throat, achiness and possible fever. Also noted to be tachycardic and came to emergency department 11/26/2024 for evaluation. She was felt to be dehydrated and given a liter of fluid. She
then held her Lasix for several days and shortly after developed shortness of breath both with activity and at rest prompting her to come to emergency department 12/02/2024.
Acute heart failure with preserved ejection fraction, proBNP 2320 & pulm edema on CXR
-Possibly due to fluid resuscitation and holding outpatient oral Lasix.
-Notes significant improvement of symptoms however still requiring supplemental oxygen 2 to 3 L. Will attempt to wean
- Ongoing gentle diuresis with Lasix 20 mg IV. {She is on 20 mg PO Lasix as outpt}
- Renal function and electrolytes remain stable
- Continue Toprol, spironolactone, and losartan.
- Echocardiogram 12/03/2024 pending
-Patient primarily a paced on telemetry with occasional episodes of brief tachycardia. Continue beta-kadie
- Outpt cardiology records at [facility] requested
HPI 12/02/2024:
She presents to the emergency department with approximately 2 days of progressive dyspnea on exertion. She tells me that she has not taken her Lasix for the past 2 days because she thought she was coming down with a viral illness. Her appetite
was not great. She thought she felt some fevers at home but never took her temperature. No chills. No nausea or vomiting. No diarrhea.
On presentation to the emergency department physical exam is consistent with congestive heart failure and additional supportive findings include elevated proBNP at 2320 and chest x-ray finding mild pulmonary edema
cardiology is consulted for management of her decompensated heart failure with preserved ejection fraction in the setting of repaired congenital heart disease
Progress Note - Manager [employer] Director
Subjective
Date of Service: December 03, 2024
Patient seen and examined. Patient reports shortness of breath is improving. Hands feel less edematous and she is no longer wheezing. Still requiring oxygen
Objective
Labs:
12/03/24 04:51
12/03/24 04:51
Labs
Hgb 12.1 g/dL (12.0-16.0) 12/03/24 04:51
Hct 35.9 % (37.0-47.0) L 12/03/24 04:51
Plt Count 85 10^3/uL (130-400) L 12/03/24 04:51
Sodium 137 mmol/L (135-145) 12/03/24 04:51
Potassium 4.2 mmol/L (3.5-5.1) 12/03/24 04:51
BUN 10 mg/dl (7-17) 12/03/24 04:51
Creatinine 0.5 mg/dL (0.6-1.0) L 12/03/24 04:51
Glucose 146 mg/dl (70-99) H 12/03/24 04:51
Troponins
12/02/24 12/02/24 12/02/24
11:28 15:34 22:00
Troponin I < 0.012 Cancelled < 0.012
12/03/24
04:51
Troponin I < 0.012
Vital Signs and I&O:
Vital Signs
Temp Pulse Resp BP Pulse Ox
97.6 F 85 18 114/59 98
12/03/24 11:19 12/03/24 11:19 12/03/24 11:19 12/03/24 11:19 12/03/24 11:19
Vital Signs
Temp Pulse Resp BP Pulse Ox
97.6 F 85 18 114/59 98
12/03/24 11:19 12/03/24 11:19 12/03/24 11:19 12/03/24 11:19 12/03/24 11:19
Intake & Output
12/01/24 12/02/24 12/03/24 12/04/24
06:59 06:59 06:59 06:59
Intake Total 480 / 480
Balance 480 / 480
Physical Exam
Physical Exam
GEN: No distress, awake, Ox3, sitting in bed on tablet
HEENT: supple, anicteric, mmm
LUNGS: CTA, no wheezes/rales
CV: Reg, S1/S2, 1/6 syst murmur loudest at apex, no rub or gallop
ABD: soft, BS+, NT/ND
EXT: No edema, clubbing or cyanosis
NEURO: Gross non-focal
SKIN: No rash, warm, dry, pink
--- NOTE | 2024-12-03 13:49 | CM ---
Patient seen at bedside with sister Natalee
IA completed
CHF: Heart failure
PMH: Congenital heart defect, complex cardiopulmonary history, IDDM
Lives at home in a 1 story with , 2 steps to enter
PLOF: Independent
DME: glucometer
Denies HH/Rehab
Denies insecurities
PCP: Jacklyn Headley
Pharmacy: [address], [place]
PLAN: Home, ?VN
[2024-12-03 15:16] VITALS: BP 98/55
[2024-12-03 16:54] LABS: Glucose - Point of Care 130 mg/dl (70-99)
[2024-12-03 19:20] VITALS: BP 102/65
[2024-12-03] MEDS: NON-FORMULARY ITEM 1 PUFF INH (19:51)
[2024-12-03 20:14] LABS: Glucose - Point of Care 154 mg/dl (70-99)
[2024-12-03] MEDS: TOPROL XL 25 MG PO (21:37)
[2024-12-03] MEDS: ALDACTONE 12.5 MG PO (21:38)
[2024-12-03] MEDS: FEOSOL 325 MG PO (21:39)
[2024-12-03] MEDS: ZOLOFT 150 MG PO (21:39)
[2024-12-03 22:57] VITALS: BP 102/53
[2024-12-04 03:00] VITALS: BP 103/63
[2024-12-04 05:31] VITALS: BMI 25.8
[2024-12-04 07:45] LABS: Glucose - Point of Care 140 mg/dl (70-99)
[2024-12-04 07:49] VITALS: BP 105/59
[2024-12-04] MEDS: TYLENOL 650 MG PO (08:04)
[2024-12-04] MEDS: PROTONIX 40 MG PO ×2 (08:05→20:13)
[2024-12-04] MEDS: GLUCOPHAGE XR EXTENDED RELEASE 500 MG PO ×2 (08:05→20:13)
[2024-12-04] MEDS: FARXIGA 10 MG PO (08:05)
[2024-12-04] MEDS: LASIX 40 MG IV (08:07)
[2024-12-04 10:47] LABS: Glycohemoglobin (HgbA1c) 6.6 % (4.0-5.6)
--- NOTE | 2024-12-04 10:52 | W.PN.CARDCBS ---
Addendum entered and electronically signed by Júnior Jha MD 12/04/24 13:57:
I saw and examined the patient.
The Development Architect's note was reviewed and I agree with the note.
Comment: Briefly, 49-year-old woman past medical history of congenital heart disease with transposition of the great vessels with prior mustard procedure who presents in decompensated heart failure
With IV Lasix her volume status appears reasonable today on exam
Wean oxygen as able
Tentatively plan to transition to p.o. Lasix tomorrow
Continue spironolactone and SGLT2 which she was on as an outpatient
Will follow-up with her primary visitor information assistant at [facility] after discharge
Original Note:
Today's Communication / Plan
-
Wean off oxygen
Transition to oral Lasix 20 mg 12/05/2024
If blood pressure and renal function stable consider resuming losartan within next 24 hours
Continue Farxiga and spironolactone
Impression / Plan
-
PCP: Dr. Headley
Cardiology: Dr. Gómez Hunter at [facility],
Impression
Presented 12/02/2024 with 2 days of progressive dyspnea on exertion
Acute on Chronic HFpEF, CHF-NYHA class 2320
Congenital heart disease
Transposition of great vessels.
Balloon septostomy, age 2 days
Juhi Daiana shunt, age 2 months
Mustard procedure with atrial baffling, age 10 months
Epicardial right ventricular lead placement, age 11, with redundant second lead. First lead fractured with switch to second lead s/p PPM with abdominal generator intracardiac atrial lead system placed approximately 2007
Medtronic pacemaker
Restrictive lung disease felt to be secondary to kyphosis
Chronically elevated right hemidiaphragm
Chronic thrombocytopenia
Type 2 diabetes
Migraines
Cognitive impairment
h/o CVA
Diabetic neuropathy
History of pheochromocytoma s/p resection
History of portal vein thrombosis
Hepatic fibrosis/cirrhosis?
SVC and IVC stents for presumed anastomotic stenosis
Echo 08/07/24: LV is sub pulmonic and dilated, mild LVH with a pacing wire. LVEF is 60-65%. RVH and enlarged RV size with preserved systolic function, the RV is systemic. Mildly dilated RA. No MR. Mitral valve is sub pulmonary. No and trace aortic
regurgitation, aortic valve arises anteriorly from the systemic right ventricle, mod TR with PAP 75-80 mmHg assuming a right atrial pressure of 3 mmHg. The tricuspid valve is systemic. No evidence of flow acceleration within the pulmonary venous
baffle. There is a stent in the superior systemic venous baffle. There is a stent in the inferior systemic venous baffle also. No obvious baffle leak is seen on color Doppler. Compared to previous echo 04/21/23, the pulmonary artery pressures have
increased from 55 to 75 mmHg. Otherwise no significant change.
Echocardiogram 12/03/2024: EF 60%. There is septal straightening and paradoxical motion. Pacing wire is identified, which is an atrial lead but may be prolapsing into the morphologic left ventricle. Morphologic (systemic) right ventricle is top
normal in size and hypertrophied with preserved systolic function. The aortic valve connected to the morphologic right ventricle is sclerotic with trace aortic regurgitation. The pulmonic valve connected to the morphologic left ventricle is
sclerotic with trace pulmonic regurgitation. Flow in the baffles is normal and stents are patent, Tricuspid valve is mildly thickened but opens normally. Mild tricuspid regurgitation. The systolic gradient across the tricuspid valve is 66 mmHg
Recommendations:
Patient reports she had viral illness last week with sore throat, achiness and possible fever. Also noted to be tachycardic and came to emergency department 11/26/2024 for evaluation. She was felt to be dehydrated and given a liter of fluid. She
then held her Lasix for several days and shortly after developed shortness of breath both with activity and at rest prompting her to come to emergency department 12/02/2024.
Acute heart failure with preserved ejection fraction, proBNP 2320 & pulm edema on CXR
-Possibly due to fluid resuscitation and holding outpatient oral Lasix.
- Notes significant improvement of symptoms however still requiring supplemental oxygen 2 L. Wean off
- Ongoing gentle diuresis with Lasix 20 mg IV. Would transition to oral Lasix 20 mg on 12/05/2024 {She is on 20 mg PO Lasix as outpt}
- Patient difficult IV stick and new labs today. Would repeat BMP in a.m. if patient still here. If renal function and electrolytes remain stable
- Continue Toprol, spironolactone.
- Losartan has been on hold since admission. Blood pressure remains marginal but this appears to be patient's baseline. If BMP stable on 12/05 resume losartan at 25 mg.
- Echocardiogram 12/03/2024 as noted above. Overall appears to be stable
-Patient primarily a paced on telemetry with occasional episodes of brief tachycardia. Continue beta-kadie
- Outpt cardiology records at [facility] requested
HPI 12/02/2024:
She presents to the emergency department with approximately 2 days of progressive dyspnea on exertion. She tells me that she has not taken her Lasix for the past 2 days because she thought she was coming down with a viral illness. Her appetite
was not great. She thought she felt some fevers at home but never took her temperature. No chills. No nausea or vomiting. No diarrhea.
On presentation to the emergency department physical exam is consistent with congestive heart failure and additional supportive findings include elevated proBNP at 2320 and chest x-ray finding mild pulmonary edema
cardiology is consulted for management of her decompensated heart failure with preserved ejection fraction in the setting of repaired congenital heart disease
Progress Note - Rate Setter
Subjective
Date of Service: December 04, 2024
Patient seen and examined. Patient reports she slept well without orthopnea or PND but remains on oxygen. Still has a mild cough.
Objective
Labs:
12/03/24 04:51
12/03/24 04:51
Labs
Hgb 12.1 g/dL (12.0-16.0) 12/03/24 04:51
Hct 35.9 % (37.0-47.0) L 12/03/24 04:51
Plt Count 85 10^3/uL (130-400) L 12/03/24 04:51
Sodium 137 mmol/L (135-145) 12/03/24 04:51
Potassium 4.2 mmol/L (3.5-5.1) 12/03/24 04:51
BUN 10 mg/dl (7-17) 12/03/24 04:51
Creatinine 0.5 mg/dL (0.6-1.0) L 12/03/24 04:51
Glucose 146 mg/dl (70-99) H 12/03/24 04:51
Troponins
12/02/24 12/02/24 12/02/24
11:28 15:34 22:00
Troponin I < 0.012 Cancelled < 0.012
12/03/24
04:51
Troponin I < 0.012
Vital Signs and I&O:
Vital Signs
Temp Pulse Resp BP Pulse Ox
97.6 F 77 18 105/59 94
12/04/24 07:49 12/04/24 08:07 12/04/24 07:49 12/04/24 08:07 12/04/24 10:12
Vital Signs
Temp Pulse Resp BP Pulse Ox
97.6 F 77 18 105/59 94
12/04/24 07:49 12/04/24 08:07 12/04/24 07:49 12/04/24 08:07 12/04/24 10:12
Intake & Output
12/02/24 12/03/24 12/04/24 12/05/24
06:59 06:59 06:59 06:59
Intake Total 480 / 480 1380 / 1380
Balance 480 / 480 1380 / 1380
Physical Exam
Physical Exam
GEN: No distress, awake, Ox3, sitting in bed
HEENT: supple, anicteric, mmm
LUNGS: CTA bilaterally, no wheezes/rales; still on oxygen, mild cough with deep breath
CV: Reg, S1/S2, 1/6 syst murmur loudest at apex, no rub or gallop
ABD: soft, BS+, NT/ND
EXT: No edema, clubbing or cyanosis
NEURO: Gross non-focal
SKIN: No rash, warm, dry, pink
[2024-12-04 11:10] VITALS: BP 99/64
[2024-12-04 11:26] LABS: Glucose - Point of Care 199 mg/dl (70-99)
--- NOTE | 2024-12-04 11:58 | W.PN.HOSP.TC ---
Today's Communication/Plan
-
see bold
Assessment / Plan
Assessment / Plan
Gen: NAD, AAOx3.
Eyes: EOMI, PERRLA, no scleral icterus.
Neck: supple.
CV: Remains RRR, +S1/S2, no m/r/g.
Resp: Decreased breath sounds in the right base
Abd: +BS, soft, NT, ND
Skin: No rashes.
Neuro: Remains CN 2-12 intact, non-focal.
Psych: Normal mood and affect.
CXR: Cardiomegaly with mild pulmonary edema. Stable postoperative changes.
Echo:
1. D-transposition of the great arteries status post mustard repair and stents to baffle
2. The morphologic (pulmonary) left ventricle is normal in size and function with an ejection fraction of 60%. There is septal straightening and paradoxical motion. Pacing wire is identified, which is an atrial lead but may be prolapsing into the
morphologic left ventricle.
3. Morphologic (systemic) right ventricle is top normal in size and hypertrophied with preserved systolic function
4. The aortic valve connected to the morphologic right ventricle is sclerotic with trace aortic regurgitation
5. The pulmonic valve connected to the morphologic left ventricle is sclerotic with trace pulmonic regurgitation
6. Flow in the baffles is normal and stents are patent
Acute on chronic HFpEF:
-proBNP 2,320, CXR with pulm edema
-trop NEG x 2
-echo above
-was on IV Lasix, now transitioned to PO Lasix starting 12/05/24AM
-daily wts, I/Os
-cont BB/Aldactone
-cards following
DM2 with diabetic neuropathy:
-cont Metformin/Farxiga
-SSI/accuchecks
Other problems:
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
Cardiogenic cirrhosis
Pheochromocytoma s/p adrenalectomy
h/o portal vein thrombosis
Minimally elevated bilirubin
Chronic thrombocytopenia
Restrictive lung disease thought to be due to kyphosis
Migraines
Cognitive impairment
h/o CVA
Balloon septostomy, age 2 days
Juhi Daiana shunt, age 2 months
Mustard procedure with atrial baffling, age 10 months
Epicardial right ventricular lead placement, age 11, with redundant second lead. First lead fractured with switch to second leads/p PPM with abdominal generator intracardiac atrial lead system placed approximately 2007.
SSS s/p PPM
Pulmonary HTN
FULL/SCDs
Anticipated Discharge: Within 24 hours
Subjective/Interval History
-
Date of Service: December 04, 2024
Shortness of breath improving.
Objective Data
-
Vital Signs:
Vital Signs
Temp Pulse Resp BP Pulse Ox
98.0 F 78 18 99/64 97
12/04/24 11:10 12/04/24 11:10 12/04/24 11:10 12/04/24 11:10 12/04/24 11:10
I&O
12/03/24 12/04/24 12/05/24
06:59 06:59 06:59
Intake Total 480 / 480 1380 / 1380
Balance 480 / 480 1380 / 1380
[2024-12-04 15:00] VITALS: BP 107/58
[2024-12-04 16:16] LABS: Glucose - Point of Care 170 mg/dl (70-99)
[2024-12-04] MEDS: NON-FORMULARY ITEM 1 PUFF INH (19:17)
[2024-12-04 19:30] VITALS: BP 108/59
[2024-12-04 20:01] LABS: Glucose - Point of Care 200 mg/dl (70-99)
[2024-12-04] MEDS: FEOSOL 325 MG PO (22:04)
[2024-12-04] MEDS: ZOLOFT 150 MG PO (22:04)
[2024-12-04] MEDS: TOPROL XL 25 MG PO (22:05)
[2024-12-04] MEDS: ALDACTONE 12.5 MG PO (22:05)
[2024-12-04 23:23] VITALS: BP 99/53
--- NOTE | 2024-12-05 02:26 | DOWNTIME ---
There was a [employer] Client Assistant Merchandise Manager Downtime on 12/05/2024 from 0100 to 12/05/2023 at 0205 . Downtime documentation of patient's care, including medication administrations, has been reconciled in the electronic record per guidelines. Refer to the
patient's paper chart under the miscellaneous tab to see printed paper medication records and downtime forms.
[2024-12-05 03:09] VITALS: BP 94/53
[2024-12-05 05:32] VITALS: BMI 25.6
[2024-12-05 07:25] VITALS: BP 106/41
[2024-12-05 08:12] LABS: Glucose - Point of Care 127 mg/dl (70-99)
[2024-12-05 08:24] LABS: Blood Urea Nitrogen 15 mg/dl (7-17); Calcium 8.9 mg/dl (8.4-10.2); Carbon Dioxide 31 mmol/L (22-30); Chloride 94 mmol/L (98-107); Estimated Creatinine Clearance 107 ml/min; Glucose 127 mg/dl (70-99); Potassium 3.5 mmol/L (3.5-5.1); Sodium 137 mmol/L (135-145); eGFR > 60.00
[2024-12-05] MEDS: LASIX 20 MG PO (08:37)
[2024-12-05] MEDS: PROTONIX 40 MG PO (08:38)
[2024-12-05] MEDS: FARXIGA 10 MG PO (08:38)
[2024-12-05] MEDS: GLUCOPHAGE XR EXTENDED RELEASE 500 MG PO (08:38)
[2024-12-05 11:05] VITALS: BP 100/47
[2024-12-05 11:32] LABS: Glucose - Point of Care 215 mg/dl (70-99)
--- NOTE | 2024-12-05 12:15 | W.PN.HOSP.TC ---
Addendum entered and electronically signed by Alta Dawson MD 12/05/24 12:22:
acute hypoxemic resp insufficiency with ambulation--needs O2 with exertion--see below
Original Note:
Today's Communication/Plan
-
home O2
ok for d/c
Assessment / Plan
Assessment / Plan
Gen: NAD, AAOx3.
Eyes: EOMI, PERRLA, no scleral icterus.
Neck: supple.
CV: Remains RRR, +S1/S2, no m/r/g.
Resp: Decreased breath sounds in the right base
Abd: +BS, soft, NT, ND
Skin: No rashes.
Neuro: Remains CN 2-12 intact, non-focal.
Psych: Normal mood and affect.
CXR: Cardiomegaly with mild pulmonary edema. Stable postoperative changes.
Echo:
1. D-transposition of the great arteries status post mustard repair and stents to baffle
2. The morphologic (pulmonary) left ventricle is normal in size and function with an ejection fraction of 60%. There is septal straightening and paradoxical motion. Pacing wire is identified, which is an atrial lead but may be prolapsing into the
morphologic left ventricle.
3. Morphologic (systemic) right ventricle is top normal in size and hypertrophied with preserved systolic function
4. The aortic valve connected to the morphologic right ventricle is sclerotic with trace aortic regurgitation
5. The pulmonic valve connected to the morphologic left ventricle is sclerotic with trace pulmonic regurgitation
6. Flow in the baffles is normal and stents are patent
pt is a 49 year old female
Patient is in need of oxygen on exertion due to pulse oximetry of 92% on room air at rest; 86% on room air with exertion. Patient was placed on 2L O2 via nasal cannula with saturation of 95%. Oxygen will help to improve hypoxemia. Patient is mobile
within the home. Albuterol therapy has been discussed and is ineffective in treating hypoxemia-related symptoms. Oxygen will improve the patient's symptoms.
Acute on chronic HFpEF:
-proBNP 2,320, CXR with pulm edema
-trop NEG x 2
-echo above
- transitioned to PO Lasix starting 12/05/24AM--cleared for d/c by cards
-daily wts, I/Os
-cont BB/Aldactone
-cards following
DM2 with diabetic neuropathy:
-cont Metformin/Farxiga
-SSI/accuchecks
Other problems:
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
Cardiogenic cirrhosis
Pheochromocytoma s/p adrenalectomy
h/o portal vein thrombosis
Minimally elevated bilirubin
Chronic thrombocytopenia
Restrictive lung disease thought to be due to kyphosis
Migraines
Cognitive impairment
h/o CVA
Balloon septostomy, age 2 days
Juhi Daiana shunt, age 2 months
Mustard procedure with atrial baffling, age 10 months
Epicardial right ventricular lead placement, age 11, with redundant second lead. First lead fractured with switch to second leads/p PPM with abdominal generator intracardiac atrial lead system placed approximately 2007.
SSS s/p PPM
Pulmonary HTN
FULL/SCDs
ok for d/c with O2 with exertion
Anticipated Discharge: Today
Subjective/Interval History
-
Date of Service: December 05, 2024
pt O2 sat dropped to 86% with ambulation--cleared for d/c by cards
Objective Data
-
Labs:
Laboratory Results
12/05/24
07:11
Sodium 137
Potassium 3.5
Chloride 94 L
Carbon Dioxide 31 H
BUN 15
Creatinine 0.6
Glucose 127 H
Calcium 8.9
Vital Signs:
max temp for 24 hours
12/05/24
03:09
Temp 98.3 F
Vital Signs
Temp Pulse Resp BP Pulse Ox
97.9 F 76 18 100/47 97
12/05/24 11:05 12/05/24 11:05 12/05/24 11:05 12/05/24 11:05 12/05/24 11:05
I&O
12/04/24 12/05/24 12/06/24
06:59 06:59 06:59
Intake Total 1380 / 1380 1200 / 1200
Balance 1380 / 1380 1200 / 1200
Review of Systems
-
All other systems: Reviewed and negative
Physical Exam
-
General: Well Developed, Well Nourished and No Apparent Distress
HEENT: Normocephalic and Atraumatic
Respiratory: Clear to Auscultation; Negative Wheezes or Rhonchi
Cardiac: Regular Rhythm and S1/S2; Negative Murmur
GI: Soft, Nontender, Nondistended and Normal Bowel Sounds
Musculoskeletal: No Clubbing, No Cyanosis and No Edema
Neuro: Awake and Alert
--- NOTE | 2024-12-05 12:28 | CM ---
Addendum entered by Theresa Grande 12/05/24 13:16:
[employer] to deliver tank for home and home system as well as POC when available. they are calling patient directly.
Original Note:
Patient seen at bedside with physician. Patient qualified for home O2, following discussion with patient referral called to [facility] pending script. patient declined VN supports at this time. Awaiting response from [facility], clinicals faxed. CM will
continue to follow for discharge planning needs.
Plan; home with portable O2.
--- NOTE | 2024-12-05 12:57 | W.PN.CARDCBS ---
Addendum entered and electronically signed by Enrique Canales MD 12/05/24 13:11:
I saw and examined the patient.
The LEAD QUALITY CONTROL TECHNICIAN or PA's note was reviewed and I agree with the note.
Comment: General: Well developed, well nourished in NAD.
Neck: Supple, no JVD, HJR, carotids +2 B/L, no bruits bilaterally.
Heart: Non displaced PMI, RRR, no murmurs, No S3, S4, no rubs.
Lungs: Clear to auscultation bilaterally, no wheeze, rhonchi, rubs bilaterally,
normal expiratory phase.
Extremities: No clubbing, cyanosis or edema bilaterally.
Neuro: Grossly nonfocal, awake, alert and oriented x3.
Stable cardiology status for discharge on Lasix 20 mg daily. Replete potassium. Outpatient follow-up arranged. Discussed with primary service. Will sign off.
Original Note:
Today's Communication / Plan
-
po lasix 20mg daily
replete K
continue toprol, aldactone, losartan
will arrange OP cardiac follow up with [facility]. thereafter can resume care with [facility] mattress inspector
Impression / Plan
-
PCP: Dr. Headley
Cardiology: Dr. Gómez Hunter at [facility],
Impression
Presented 12/02/2024 with 2 days of progressive dyspnea on exertion
Acute on Chronic HFpEF, CHF-NYHA class 2320
Congenital heart disease
Transposition of great vessels.
Balloon septostomy, age 2 days
Juhi Daiana shunt, age 2 months
Mustard procedure with atrial baffling, age 10 months
Epicardial right ventricular lead placement, age 11, with redundant second lead. First lead fractured with switch to second lead s/p PPM with abdominal generator intracardiac atrial lead system placed approximately 2007
[employer] pacemaker
Restrictive lung disease felt to be secondary to kyphosis
Chronically elevated right hemidiaphragm
Chronic thrombocytopenia
Type 2 diabetes
Migraines
Cognitive impairment
h/o CVA
Diabetic neuropathy
History of pheochromocytoma s/p resection
History of portal vein thrombosis
Hepatic fibrosis/cirrhosis?
SVC and IVC stents for presumed anastomotic stenosis
Echo 08/07/24: LV is sub pulmonic and dilated, mild LVH with a pacing wire. LVEF is 60-65%. RVH and enlarged RV size with preserved systolic function, the RV is systemic. Mildly dilated RA. No MR. Mitral valve is sub pulmonary. No and trace aortic
regurgitation, aortic valve arises anteriorly from the systemic right ventricle, mod TR with PAP 75-80 mmHg assuming a right atrial pressure of 3 mmHg. The tricuspid valve is systemic. No evidence of flow acceleration within the pulmonary venous
baffle. There is a stent in the superior systemic venous baffle. There is a stent in the inferior systemic venous baffle also. No obvious baffle leak is seen on color Doppler. Compared to previous echo 04/21/23, the pulmonary artery pressures have
increased from 55 to 75 mmHg. Otherwise no significant change.
Echocardiogram 12/03/2024: EF 60%. There is septal straightening and paradoxical motion. Pacing wire is identified, which is an atrial lead but may be prolapsing into the morphologic left ventricle. Morphologic (systemic) right ventricle is top
normal in size and hypertrophied with preserved systolic function. The aortic valve connected to the morphologic right ventricle is sclerotic with trace aortic regurgitation. The pulmonic valve connected to the morphologic left ventricle is
sclerotic with trace pulmonic regurgitation. Flow in the baffles is normal and stents are patent, Tricuspid valve is mildly thickened but opens normally. Mild tricuspid regurgitation. The systolic gradient across the tricuspid valve is 66 mmHg
Recommendations:
-Patient reports she had viral illness last week with sore throat, achiness and possible fever. Also noted to be tachycardic and came to emergency department 11/26/2024 for evaluation. She was felt to be dehydrated and given a liter of fluid. She
then held her Lasix for several days and shortly after developed shortness of breath both with activity and at rest prompting her to come to emergency department 12/02/2024.
-reports feeling most of edema in her hands. she reports has improved however is not yet 100% back to baseline. states she feels good for DC.
-currently on room air
-continue po lasix 20mg daily
-continue toprol, spironolactone. would likely resume OP losartan upon DC
-echocardiogram 12/03/2024 as noted above. Overall stable
-CHF education reviewed.
-Patient primarily apaced on telemetry with occasional episodes of brief atrial tachycardia. Continue beta-kadie, consider uptitration as OP as able. replete K
-Plan for DC today. We discussed outpatient follow-up upon discharge. She believes she will be unable to get up to her mattress inspector in [place] by next week. She also states she is going away on vacation starting next Thursday 12/14. Will arrange
outpatient follow-up with us to reassess patient prior to her going on vacation. She can then continue follow-up with her mattress inspector at [facility].
HPI 12/02/2024:
She presents to the emergency department with approximately 2 days of progressive dyspnea on exertion. She tells me that she has not taken her Lasix for the past 2 days because she thought she was coming down with a viral illness. Her appetite
was not great. She thought she felt some fevers at home but never took her temperature. No chills. No nausea or vomiting. No diarrhea.
On presentation to the emergency department physical exam is consistent with congestive heart failure and additional supportive findings include elevated proBNP at 2320 and chest x-ray finding mild pulmonary edema
cardiology is consulted for management of her decompensated heart failure with preserved ejection fraction in the setting of repaired congenital heart disease
Progress Note - Health Professor
Subjective
Date of Service: December 05, 2024
Reports feeling better. Eager for discharge
Objective
Labs:
12/03/24 04:51
12/05/24 07:11
Labs
Hgb 12.1 g/dL (12.0-16.0) 12/03/24 04:51
Hct 35.9 % (37.0-47.0) L 12/03/24 04:51
Plt Count 85 10^3/uL (130-400) L 12/03/24 04:51
Sodium 137 mmol/L (135-145) 12/05/24 07:11
Potassium 3.5 mmol/L (3.5-5.1) 12/05/24 07:11
BUN 15 mg/dl (7-17) 12/05/24 07:11
Creatinine 0.6 mg/dL (0.6-1.0) 12/05/24 07:11
Glucose 127 mg/dl (70-99) H 12/05/24 07:11
Troponins
12/02/24 12/02/24 12/03/24
15:34 22:00 04:51
Troponin I Cancelled < 0.012 < 0.012
Vital Signs and I&O:
Vital Signs
Temp Pulse Resp BP Pulse Ox
97.9 F 76 18 100/47 97
12/05/24 11:05 12/05/24 11:05 12/05/24 11:05 12/05/24 11:05 12/05/24 11:05
Vital Signs
Temp Pulse Resp BP Pulse Ox
97.9 F 76 18 100/47 97
12/05/24 11:05 12/05/24 11:05 12/05/24 11:05 12/05/24 11:05 12/05/24 11:05
Intake & Output
12/03/24 12/04/24 12/05/24 12/06/24
07:59 07:59 07:59 07:59
Intake Total 480 / 480 1380 / 1380 1200 / 1200
Balance 480 / 480 1380 / 1380 1200 / 1200
Physical Exam
Physical Exam
GEN: No distress, awake, alert, oriented x3
HEENT: supple, anicteric, mmm, eomi
LUNGS: CTA B/L, no wheezes
CV: Reg, S1/S2, 1/6 apex murmur
ABD: soft, BS+, NT/ND
EXT: No cyanosis, clubbing, edema
NEURO: Gross non-focal
SKIN: Warm, pink, dry. No rash
--- NOTE | 2024-12-05 12:58 | PN.CDI ---
Addendum entered and electronically signed by Alta Dawson MD 12/05/24 13:30:
she has heart failure--those meds are given for that--I cannot comment on an H&P from 07/2024 that I did not do.
Original Note:
CDI
- -
CDI:
Physician Documentation Request
Admit Date: 12/02/24 14:52
Dear Doctor Eunice,
Please review the following and provide your response in the progress notes.
Clinical Indicators:
Pt admitted with acute on chronic HFpEF.
Previous admission pt noted to have PMHx of HTN:
08/05/24 H&P: 'She has past medical history of congenital heart defect with transposition of vessels at [facility], history of SSS/status post pacemaker, restrictive lung disease, HTN, chronic CHF, GERD, adrenalectomy left side secondary to
pheochromocytoma, liver cirrhosis from CHF, splenomegaly, chronic thrombocytopenia, migraines, anxiety.'
Home meds included Losartan and Metoprolol
Based on the above, could you clarify in the progress notes, the appropriate diagnosis, if significant, that supports the above abnormalities and additional evaluation, monitoring and/or treatment rendered:
Pt with PMH Hypertension
Other
Use of terms such as suspected, likely, concern for, or probable (associated with a specific diagnosis that is being evaluated, monitored, or treated as if it exists) are acceptable and can be coded in the inpatient setting, when documented at the
time of discharge.
Thank you,
Denice Hickey RN, BSN
CDI Specialist
[place] [facility]
Please use your independent medical judgment in providing your response.
[2024-12-05] MEDS: KCL 20 MEQ PO (13:09)
--- NOTE | 2024-12-06 11:21 | W.HF.CON ---
Heart Failure
- LV Function
Left ventricular function study result: LV Ejection fraction >/= 50%
Ejection Fraction Percentage: 60
- ARNI
Patient already on ARNI: No
Heart Failure ARNI Not Indicated: LV Ejection Fraction >/= 40%
- ACEI/ARB
Patient already on ACEI/ARB: Yes
- Beta Clara
Patient already on Evidence Based Beta Clara: Yes
- Mineralocorticord Receptor Antagonist
Patient already on MRA: Yes
- SGLT-2 Inhibitor
Patient already on SGLT-2 Inhibitor: No
Heart Failure SGLT-2 Inhibitor Contraindication: Patient Refusal
- NYHA CHF Classification
NYHA CHF Classification Level: Class III - Symptoms w/ min exertion, interferes w/ nml daily activity
- ACC/AHA Stage
ACC/AHA Stage: Stage C: Symptomatic Heart Failure
--- NOTE | 2024-12-06 15:36 | W.DCSUMMARY ---
Discharge Summary
Discharge Data
Date of Admission: 12/02/24
Date of Discharge: 12/05/24
-
Pending Results: No
Hospital Course
Primary diagnoses:
Acute on chronic heart failure with preserved ejection fraction
Secondary diagnoses:
Type 2 diabetes mellitus with diabetic neuropathy
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
Cardiogenic cirrhosis
Pheochromocytoma s/p adrenalectomy
h/o portal vein thrombosis
Minimally elevated bilirubin
Chronic thrombocytopenia
Restrictive lung disease thought to be due to kyphosis
Migraines
Cognitive impairment
h/o cerebrovascular accident
Balloon septostomy, age 2 days
Juhi Daiana shunt, age 2 months
Mustard procedure with atrial baffling, age 10 months
Epicardial right ventricular lead placement, age 11, with redundant second lead. First lead fractured with switch to second leads/p PPM with abdominal generator intracardiac atrial lead system placed approximately 2007.
Sick sinus syndrome s/p permanent pacemaker placement
Pulmonary hypertension
Consultants:
Cardiology
Imaging:
CXR: Cardiomegaly with mild pulmonary edema. Stable postoperative changes.
Echo:
1. D-transposition of the great arteries status post mustard repair and stents to baffle
2. The morphologic (pulmonary) left ventricle is normal in size and function with an ejection fraction of 60%. There is septal straightening and paradoxical motion. Pacing wire is identified, which is an atrial lead but may be prolapsing into the
morphologic left ventricle.
3. Morphologic (systemic) right ventricle is top normal in size and hypertrophied with preserved systolic function
4. The aortic valve connected to the morphologic right ventricle is sclerotic with trace aortic regurgitation
5. The pulmonic valve connected to the morphologic left ventricle is sclerotic with trace pulmonic regurgitation
6. Flow in the baffles is normal and stents are patent
Hospital course: 49-year-old female with extensive past medical history as above who presented with chief complaint of shortness of breath as outlined in the H&P done on admission. proBNP 2,320, CXR with pulm edema, trop NEG x 2, echo above.
Patient was diuresed with IV Lasix. She was then transitioned to oral Lasix. Her beta-kadie and Aldactone were continued. On discharge she required supplemental oxygen. She was discharged in medically stable condition.
Discharge Plan
-
Patient Disposition: Home (Routine Discharge)
Discharge Diagnosis/Procedures: Acute on chronic diastolic congestive heart failure with preserved ejection fraction, acute hypoxemic respiratory insufficiency requiring oxygen with ambulation/exertion, type 2 diabetes mellitus, transposition of the
great vessels status post surgical correction, cardiogenic cirrhosis, pheochromocytoma status post adrenalectomy, history of portal vein thrombosis, chronic thrombocytopenia, restrictive lung disease thought to be due to kyphosis, migraines,
cognitive impairment, history of stroke in past,
Condition: Good
Diet: Low Cholesterol and 2 Gram Sodium
Activity: As tolerated
Driving Restrictions: As prior to admission
Bathing Restrictions: None
Specialty Instructions: Weigh Daily- Call MD for wt gain/loss 3 lbs overnight/5 lbs in 1 week
Instructions: *PCP/Other Drop Count Associate Heart Failure Instructions
Referrals:
Mallorie Enriquez PA-C [Specified Professional Personl] - 12/12/24 7:40 am (You have a cardiology follow-up appointment at the [place] office, [address]. Please call with questions)
Jacklyn Headley MD [Family Provider] - in less than 1 week
Prescriptions:
New
Trelegy
1 inh inhalation R HS Qty: 1 0RF
Continued
metoprolol succinate 25 MG tablet extended release 24 hr
25 mg PO HS
Invokana 100 MG tablet
100 mg PO DAILY
spironolactone 25 mg Tablet
12.5 mg PO HS
sertraline 100 mg tablet
150 mg PO HS
buspirone 10 mg tablet
10 mg PO BIDPRN PRN (Reason: anxiety)
Trelegy Ellipta 100-62.5-25 mcg blister with device
1 inh INHALATION R HS
Emgality Pen 120 mg/mL pen injector
120 mg SC QMONTH
ondansetron HCl 8 mg Tablet
8 mg PO BIDPRN PRN (Reason: nausea/vomiting)
omeprazole 40 mg Capsule,Delayed Release(Dr/Ec)
40 mg PO BID
metformin 500 mg tablet extended release 24 hr
500 mg PO BID
ferrous sulfate 325 mg (65 mg iron) Tablet
325 mg PO HS
furosemide 20 mg Tablet
20 mg PO DAILY Qty: 0 0RF
Held
losartan 25 mg Tablet
25 mg PO HS
Hold Instructions: discuss restarting with your manager wound care
Discharge Orders:
Discharge Patient (As Directed); Ordered 12/05/24
Ordered By: Alta Dawson
Discharge Date and Time
Discharge Date/Time: 12/05/24 14:23
Print Language: ROMANIAN
== END 2024-12-05 14:23 | disposition home or self-care (01) | DRG 292 ==
LOC: 4 WEST ACU 14:52
PROVIDERS: Physician Assistant; Physician Assistant Medical; ADMITTING PHYSICIAN Internal Medicine; ATTENDING PHYSICIAN Internal Medicine; CONSULT PHYSICIAN Internal Medicine Cardiovascular Disease; EMERGENCY PHYSICIAN Student in an Organized Health Care Education/Training Program; FAMILY PHYSICIAN Internal Medicine
DX: I50.33 Acute on chronic diastolic (congestive) heart failure (principal); I27.0 Primary pulmonary hypertension; E11.40 Type 2 diabetes mellitus with diabetic neuropathy, unspecified; Z79.84 Long term (current) use of oral hypoglycemic drugs; K76.1 Chronic passive congestion of liver; Z85.89 Personal history of malignant neoplasm of other organs and systems; Z86.718 Personal history of other venous thrombosis and embolism; D69.6 Thrombocytopenia, unspecified; M40.209 Unspecified kyphosis, site unspecified; J98.4 Other disorders of lung; G43.809 Other migraine, not intractable, without status migrainosus; Z86.73 Personal history of transient ischemic attack (TIA), and cerebral infarction without residual deficits; I49.5 Sick sinus syndrome; Z95.0 Presence of cardiac pacemaker; Z11.52 Encounter for screening for COVID-19; F32.A Depression, unspecified; K21.9 Gastro-esophageal reflux disease without esophagitis; Z95.5 Presence of coronary angioplasty implant and graft; Z88.5 Allergy status to narcotic agent; Z91.148 Patient's other noncompliance with medication regimen for other reason; T50.1X6A Underdosing of loop [high-ceiling] diuretics, initial encounter; Z79.899 Other long term (current) drug therapy; R09.02 Hypoxemia; F41.9 Anxiety disorder, unspecified; Q24.9 Congenital malformation of heart, unspecified
CPT/HCPCS: 71046; 80048; 80053; 82962; 83036; 83605; 83735; 83880; 84443; 84484; 85025; 85027; 87502; 87811; 93005; 93306; 94640; 96374; 99285

== ENCOUNTER 2024-12-12 18:02 | Outpatient (RCR) | payer OTHER, SELFPAY | END 2024-12-12 23:59 | disposition home or self-care (01) | LOC: RPT 18:02 | PROVIDERS: FAMILY PHYSICIAN Internal Medicine | DX: M54.2 Cervicalgia (principal); Z73.6 Limitation of activities due to disability; G44.209 Tension-type headache, unspecified, not intractable | CPT/HCPCS: 97010; 97110; 97140; 97164 ==

== ENCOUNTER 2024-12-22 00:13 | Emergency (ER) | payer OTHER, SELFPAY ==
[2024-12-22 00:14] VITALS: BP 125/77
--- NOTE | 2024-12-22 00:27 | ED.GENMED ---
History of Present Illness
General
Chief Complaint: Skin Problem
Source: patient
Exam Limitations: none
Time Seen by Provider: 12/22/24 00:22
History of Present Illness
History of Present Illness:
See MDM
Past History
Past History
ED Past Medical History: Arrthythmia, CHF (HFpEF), NIDDM and Other (Transposition of the great vessels, sick sinus syndrome, restrictive lung disease)
ED Past Surgical History: Cardiac and Other (L adrenalectomy)
Social History
Tobacco: Non-smoker
Alcohol: None
Drug: None
Personal:
Living: with family
Employment: Employed
Family History
Family History: Other (Noncontributory)
Phy Exam
Physical Exam
Physical Exam:
See MDM
Course
Orders/Labs/Results
Orders:
Orders
12/22/24 00:27
US Periph Venous LOWER Ext LT Urgent
Comment:
Reason For Exam: left calf swelling and pain
Vital Signs
Initial and Last Documented VS:
Initial Vital Signs
Temp Pulse Resp BP Pulse Ox
98.1 F 82 18 125/77 99
12/22/24 00:14 12/22/24 00:14 12/22/24 00:14 12/22/24 00:14 12/22/24 00:14
Last Documented Vital Signs
Temp Pulse Resp BP Pulse Ox
98.1 F 82 18 125/77 99
12/22/24 00:14 12/22/24 00:14 12/22/24 00:14 12/22/24 00:14 12/22/24 00:14
MDM/Problems Addressed
Differential Diagnosis Includes:
HPI and MDM Narrative:
49-year-old female presenting with left leg swelling and pain. Patient was recently on vacation and was on a plane ride. She is worried that she could have a blood clot. She did have a recent fall and injured her knee and her foot. She is also
concerned she could have strained her leg. Given the swelling and pain, will obtain ultrasound rule out DVT
Physical exam
General: Well appearing and non-toxic
HEENT: protecting airway
Neck: appears supple
CV: No evidence of cyanosis
Resp: No accessory muscle use
Abd: Non-distended
Extremities: Mild edema and tenderness to calf. Scabbing noted to right anterior knee without knee effusion. Distal extremity neurovascularly
Neuro: alert
Psych: Normal affect
Skin: Intact
Problems Addressed including Acute and Chronic Conditions affecting care:
1. Left calf pain
Acuity: acute
Prognosis: stable
Details: Will obtain ultrasound rule out DVT
Updates
Ultrasound negative for DVT. Patient feels comfortable going home
Differential Diagnosis (but not limited to): Calf strain, DVT
Testing considered: X-ray but there is no bony tenderness
Drug therapy (if applicable): OTC meds, please see d/c instruction regarding Rx drugs
Amount and/or Complexity of Data Reviewed
Clinical info obtained from: Patient
External data reviewed: N/A
Labs I independently reviewed (but not limited to): N/A
Radiology: Ultrasound report reviewed
Pulse Ox: not hypoxic
EKG independently reviewed: N/A
Automotive Glass Mechanic: N/A
Critical Care: N/A
Risk of Complication:
Social Determinants of health: Good social support
Discussed with other providers: N/A
Escalation of Care includes Admit/Obs: After being observed in the Emergency Department, pt stable for discharge.
Occasional wrong word or 'sound a like' substitutions may have occurred due to the inherent limitations of voice recognition software. Read the chart carefully and recognize, using context, where substitutions have occurred.
*Critical Care Note
Total Time (30-74mins, 75-104mins- exclusive of procedures): Not Applicable
ED Attending Note
-
Portions of this chart may have been created with voice recognition software.� Occasional wrong word or��sound alike� substitutions may have occurred due to the inherent limitations of voice recognition software.
Discharge Plan
Departure
Patient Disposition: Home (Routine Discharge)
Date of Disposition: 12/22/24
Time of Disposition: 02:09
Patient with high blood pressure during this ER visit?: No
Discharge Problem:
Strain of calf muscle
Instructions: Lower Extremity Muscle Strain
Prescriptions:
No Action
metoprolol succinate 25 MG tablet extended release 24 hr
25 mg PO HS
losartan 25 mg Tablet
25 mg PO HS
Invokana 100 MG tablet
100 mg PO DAILY
spironolactone 25 mg Tablet
12.5 mg PO HS
sertraline 100 mg tablet
150 mg PO HS
buspirone 10 mg tablet
10 mg PO BIDPRN PRN (Reason: anxiety)
Trelegy Ellipta 100-62.5-25 mcg blister with device
1 inh INHALATION R HS
Emgality Pen 120 mg/mL pen injector
120 mg SC QMONTH
ondansetron HCl 8 mg Tablet
8 mg PO BIDPRN PRN (Reason: nausea/vomiting)
omeprazole 40 mg Capsule,Delayed Release(Dr/Ec)
40 mg PO BID
metformin 500 mg tablet extended release 24 hr
500 mg PO BID
ferrous sulfate 325 mg (65 mg iron) Tablet
325 mg PO HS
Trelegy
1 inh inhalation R HS Qty: 1 0RF
furosemide 20 mg Tablet
20 mg PO DAILY Qty: 0 0RF
Referrals:
Jacklyn Headley MD [Family Provider] -
Activity Restrictions/Additional Instructions:
Please return for any worsening symptoms.
You may return at any time if you have further concerns.
As we discussed, the right decision was coming to the hospital to rule out a blood clot.
Please follow up with your doctor at the first available appointment, preferably this week.
Thank you for choosing [facility].
Interventions
Interventions:
*Risk Screen - Suicide Last Done: 12/22/24 00:14
*General Assessment Last Done: 12/22/24 00:14
*Neglect/Abuse Screening Last Done: 12/22/24 00:14
ED- Fall Risk Assessment Last Done: 12/22/24 00:52
*ED COVID-19 Vaccine History Last Done: 12/22/24 00:14
ED-Skin Assessment Last Done: 12/22/24 00:52
Discharge Date and Time
Print Language: LEBANESE
[2024-12-22 00:52] VITALS: BMI 28.3
[2024-12-22 02:16] VITALS: BP 103/61
== END 2024-12-22 02:18 | disposition home or self-care (01) ==
LOC: EMR 00:13
PROVIDERS: EMERGENCY PHYSICIAN Student in an Organized Health Care Education/Training Program; FAMILY PHYSICIAN Internal Medicine
DX: S86.812A Strain of other muscle(s) and tendon(s) at lower leg level, left leg, initial encounter (principal); W19.XXXA Unspecified fall, initial encounter; R60.0 Localized edema; M79.662 Pain in left lower leg; I50.32 Chronic diastolic (congestive) heart failure; E11.9 Type 2 diabetes mellitus without complications; J98.4 Other disorders of lung; I49.5 Sick sinus syndrome; Q20.3 Discordant ventriculoarterial connection; Z88.5 Allergy status to narcotic agent; Z91.018 Allergy to other foods
CPT/HCPCS: 99284; 93971

== ENCOUNTER 2025-01-09 18:21 | Outpatient (RCR) | payer OTHER, SELFPAY | END 2025-01-09 23:59 | disposition home or self-care (01) | LOC: RPT 18:21 | PROVIDERS: FAMILY PHYSICIAN Internal Medicine | DX: M54.2 Cervicalgia (principal); Z73.6 Limitation of activities due to disability; G44.209 Tension-type headache, unspecified, not intractable | CPT/HCPCS: 97010; 97110; 97140 ==

== ENCOUNTER 2025-01-23 19:03 | Outpatient (RCR) | payer OTHER, SELFPAY | END 2025-02-05 14:04 | disposition home or self-care (01) | LOC: RPT 19:03 | PROVIDERS: FAMILY PHYSICIAN Internal Medicine | DX: M54.2 Cervicalgia (principal); Z73.6 Limitation of activities due to disability; G44.209 Tension-type headache, unspecified, not intractable | CPT/HCPCS: 97010; 97110; 97140 ==

== ENCOUNTER → 2025-02-18 14:08 | Outpatient (REF) | payer OTHER, SELFPAY | LOC: DHSLP 14:08 | PROVIDERS: ATTENDING PHYSICIAN Internal Medicine; FAMILY PHYSICIAN Internal Medicine | DX: G47.33 Obstructive sleep apnea (adult) (pediatric) (principal); R09.02 Hypoxemia | CPT/HCPCS: 95811 ==

== ENCOUNTER 2025-04-24 12:44 | Inpatient (IN) | payer OTHER, SELFPAY ==
[2025-04-22] VITALS (7 sets, daily range): BP systolic 84–110; BP diastolic 52–66; BMI 26.3; BMI 24.8
[2025-04-22 17:24] LABS: ALT (SGPT) 30 U/L (0-35); AST (SGOT) 37 U/L (14-36); Albumin 4.7 g/dl (3.5-5.0); Alkaline Phosphatase 92 U/L (38-126); Blood Urea Nitrogen 16 mg/dl (7-17); Calcium 9.4 mg/dl (8.4-10.2); Carbon Dioxide 30 mmol/L (22-30); Chloride 102 mmol/L (98-107); Glucose 129 mg/dl (70-99); Potassium 4.3 mmol/L (3.5-5.1); Sodium 140 mmol/L (135-145); Total Bilirubin 1.1 mg/dl (0.2-1.3); Total Protein 8.1 g/dl (6.3-8.2); eGFR > 60.00
[2025-04-22 17:28] LABS: % Basophils 0.2 % (0-2); % Eosinophils 0.4 % (0-6); % Immature Granulocytes 0.4 % (0-0.5); % Lymphocytes 15.8 % (20.5-51.1); % Monocytes 6.9 % (1.7-9.3); % Neutrophils 76.3 % (42.2-75.2); Absolute Lymphocytes 0.7 10^3/uL (1.2-3.4); Absolute Monocytes 0.3 10^3/uL (0.1-0.6); Absolute Neutrophils 3.4 10^3/uL (1.4-6.5); Hematocrit 36.6 % (37.0-47.0); Hemoglobin 12.3 g/dL (12.0-16.0); Mean Corp Hgb Conc. 33.6 g/dL (33.0-37.0); Mean Corpuscular Hgb 32.5 pg (27.0-31.0); Mean Corpuscular Volume 96.8 fL (81.0-99.0); Mean Platelet Volume 11.3 fL (7.4-10.4); Nucleated Red Blood Cells % 0 %; Platelet Count 72 10^3/uL (130-400); Red Blood Cell Count 3.78 10^6/uL (4.20-5.40); Red Cell Dist. Width 14.8 % (11.5-14.5); White Blood Cell Count 4.5 10^3/uL (4.8-10.8)
[2025-04-22 17:34] LABS: NT-proBNP 740 pg/ml
[2025-04-22 19:13] LABS: Troponin I < 0.012 ng/ml
[2025-04-22] MEDS: LASIX 20 MG IV (19:16)
--- NOTE | 2025-04-22 19:38 | HPS.HSE ---
Family Physician
-
Family Physician:
Chief Complaint
-
Dyspnea exertion
History of Present Illness
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
presenting to the emergency department with approximately 2 days of dyspnea on exertion concerning for CHF exacerbation.
Patient reported that she has been able to check her weight over the last few days but reports that she feels heavier than normal. She has been having some dyspnea on exertion. She denies any wheezing fevers or chills. She does report a mild
cough that is productive of scant yellow sputum occasionally. She denies having any chest pain. She does report some reflux symptoms. She reports that she had some swelling earlier in the day but after taking Lasix it did improve. She denies
orthopnea or PND at this time. Reports that in the past when she develops congestive heart failure she gets sleepy and she is starting to get sleepy. She denies any sick contacts. She denies any palpitations. She denies feeling dizzy or
lightheaded at this time.
Currently the emergency department she was afebrile, blood pressure was 98/65 with a pulse of 69 satting 98% on room air.
ECG shows a paced rhythm at a rate of 87.
Troponin was 0.012. BNP was 740.
Chest x-ray shows pulmonary vascular congestion with some cardiomegaly.
CBC was notable for thrombocytopenia to 32 but otherwise unremarkable. Electrolytes were normal. BUN/creatinine were normal.
Medical History
Past Medical History
Past Medical History: Reports Other
Additional Past Medical History:
Arrthythmia (tachycardia),
CHF (HFpEF),
NIDDM
Transposition of the great vessels,
sick sinus syndrome,
restrictive lung disease
L adrenalectomy
Vertiginous migraine
Liver disease, unspecified
Anxious depression
Pulmonary stenosis
Primary Pulmonary HTN
GERD
Extra-Adrenal Pheochromocytoma-Left Adrenalectomy
Adrenal insufficiency
Liver fibrosis per CT 2014
Portal vein Thrombosis
Elevated LFTs
Scoliosis
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
Uterine bleeding
cardiac stents 2
diabetic neuropathy
[place] Teeth Extraction 1983
Procedure: Tonsillectomy 01/02/2010
Procedure: Stenting of IVC/ SVC 2009
pacemaker replacement 2015
Past Surgical History: Reports Other (See above)
Social History
Tobacco: Non-smoker
Alcohol: None
Drug: None
Personal:
Living: With Family
Employment: Employed
Family History
Family History: Not pertinent
Allergies / Home Medications
Allergies reflects when Allergies were last updated in [facility].
Home Medications with original date entered in [facility]
Allergy/Medication List:
Allergies
Allergy/AdvReac Type Severity Reaction Status Date / Time
codeine Allergy Unknown Verified 12/02/24 11:01
meperidine Allergy Unknown Verified 12/02/24 11:01
pineapple [Pineapple] Allergy Unknown Verified 12/02/24 11:01
Home Medications
metoprolol succinate 25 mg tablet,extended release 24 hr 25 mg PO HS Blood Pressure 07/06/11
canagliflozin 100 mg tablet (Invokana) 100 mg PO DAILY Diabetes 12/20/18
losartan 25 mg tablet 25 mg PO HS Blood Pressure 12/20/18
spironolactone 25 mg tablet 12.5 mg PO HS Fluid Retention/Swelling 12/20/22
buspirone 10 mg tablet 10 mg PO BIDPRN PRN anxiety 08/05/24
fluticasone fur. 100 mcg-umeclid 62.5 mcg-vilant 25 mcg inhalat.powder (Trelegy Ellipta) 1 inh inhalation R HS Lung/Breathing Issues 08/05/24
galcanezumab-gnlm 120 mg/mL subcutaneous pen injector (Emgality Pen) 120 mg SC QMONTH migraine 08/05/24
metformin 500 mg tablet,extended release 24 hr 500 mg PO BID Diabetes 08/05/24
omeprazole 40 mg capsule,delayed release 40 mg PO BID Gastrointestinal Issue 08/05/24
ondansetron HCl 8 mg tablet 8 mg PO BIDPRN PRN nausea/vomiting 08/05/24
sertraline 100 mg tablet 150 mg PO HS Depression 08/05/24
ferrous sulfate 325 mg (65 mg iron) tablet 325 mg PO HS 12/02/24
furosemide 20 mg tablet 20 mg PO DAILY 12/02/24
Review of Systems
-
History Source: Patient
A 12 point ROS was completed and negative except as noted: Yes
Physical Exam
Vital Signs
Vital Signs
Temp Pulse Resp BP Pulse Ox
98.0 F 69 18 98/65 93
04/22/25 16:46 04/22/25 19:16 04/22/25 16:46 04/22/25 19:16 04/22/25 19:15
Physical Exam
General: Well Developed, Well Nourished, No Apparent Distress and Comfortable
HEENT: NormoCephalic, Nose Appears Normal and Ears Appear Normal; No Oxygen
Respiratory: Clear and Decreased Breath Sounds
Cardiac: S1/S2 and Regular Rhythm
GI: Soft, Non Tender and Non Distended
Musculoskeletal: No Clubbing, No Cyanosis and No Edema
Skin: Warm and Dry
Neuro: Awake, Alert, Oriented and AO x 3
Psych: Calm
Laboratory Results
-
04/22/25 17:01
04/22/25 17:01
Laboratory Results
Total Bilirubin 1.1 mg/dl (0.2-1.3) 04/22/25 17:01
AST 37 U/L (14-36) H 04/22/25 17:01
ALT 30 U/L (0-35) 04/22/25 17:01
Alkaline Phosphatase 92 U/L (38-126) 04/22/25 17:01
Troponin I < 0.012 ng/ml 04/22/25 18:34
Data Reviewed
-
Diagnostic Radiology: Image Personally Visualized and interpreted and Report Reviewed by me
Medical Tests (Nuc Med, Echo, EKG etc): Image Personally Visualized and interpreted
Lab Data: Labs Reviewed by me
Old Records: Reviewed
Impression/Plan
-
IMPRESSION:
49-year-old with past medical history of congenital heart defect (transposition of the great artery with ventricle septal atrial septal defect and chronic heart failure) status post surgical correction at age 3, chronic passive congestive liver
cirrhosis, sqg-qhxahqx-ncpxorpll diabetes, anxiety, recurrent admissions for CHF exacerbation presents to the emergency department with approximately 2 days of dyspnea on exertion without overt signs of infection no overt signs of volume overload on
exam. ECG is a paced rhythm and nonischemic. Troponins negative. BNP is elevated but similar to prior. She has known thrombocytopenia which is unchanged from prior. Electrolytes BUN/creatinine were normal. As chest x-ray shows some
cardiomegaly and pulmonary vascular congestion consistent with mild CHF.
PLAN:
Shortness of breath -attributable to mild congestive heart failure, appears to be early in the course without significant overt signs. States that dry weight is around 153 to 155 pounds
-Admit to telemetry observation
-Status post Lasix 20 mg IV in the ED
-Continue Lasix 40 mg IV daily
-Fluid restriction, salt restriction
-Daily weights, ins and outs
-Hold off on repeat echo as he had 1 last 6 months
-Recheck procalcitonin
-Check COVID flu
Congestive heart failure
- Treatment as above
-Continue metoprolol succinate 25
-Continue losartan 25 at bedtime , hold tonight
-Continue spironolactone 12.5, hold for hypotension
-Cardiology consultation
Restrictive lung disease -secondary to severe kyphosis
-No CO2 retention at this time
-Continue Trelegy
-No reactive airway disease on examination
Diabetes
-Continue metformin
-Continue with current
DVT prophylaxis�Lovenox subcu
CODE STATUS�full code
--- NOTE | 2025-04-22 21:35 | PTCARENOTE ---
Pt arrived from ED via stretcher and ambulated to bed. Pt is AAOx3, VSS, and w/o complaints of pain. Pt is oriented to unit with call quintero within reach.
[2025-04-22] MEDS: ALDACTONE PO (22:00)
[2025-04-22] MEDS: CRESTOR 10 MG PO (22:02)
[2025-04-22] MEDS: PROTONIX 40 MG PO (22:02)
[2025-04-22] MEDS: GLUCOPHAGE XR EXTENDED RELEASE 500 MG PO (22:02)
[2025-04-22] MEDS: TUMS CHEWABLE TABLET 200 MG PO (22:02)
[2025-04-22 22:43] LABS: COVID-19 Antigen Negative (Negative)
[2025-04-22] MEDS: TOPROL XL 25 MG PO (23:12)
[2025-04-22] MEDS: ZOLOFT 200 MG PO (23:12)
[2025-04-23] MEDS: NON-FORMULARY ITEM INH (00:33)
[2025-04-23 03:57] VITALS: BP 91/48
[2025-04-23 06:00] VITALS: BMI 24.5
[2025-04-23 07:16] LABS: Procalcitonin < 0.05 ng/ml (0.0-0.25)
[2025-04-23 07:25] VITALS: BP 100/54
[2025-04-23 07:33] LABS: Blood Urea Nitrogen 16 mg/dl (7-17); Carbon Dioxide 27 mmol/L (22-30); Chloride 101 mmol/L (98-107); Estimated Creatinine Clearance 112 ml/min; Glucose 109 mg/dl (70-99); Magnesium 1.8 mg/dl (1.6-2.3); Potassium 3.8 mmol/L (3.5-5.1); Sodium 139 mmol/L (135-145); eGFR > 60.00
[2025-04-23 08:01] LABS: TSH Reflex To Free T4 2.53 uIU/ml (0.47-4.68)
[2025-04-23] MEDS: LASIX 40 MG IV (08:51)
[2025-04-23] MEDS: FARXIGA 10 MG PO (08:52)
[2025-04-23] MEDS: GLUCOPHAGE XR EXTENDED RELEASE 500 MG PO ×2 (08:52→17:16)
[2025-04-23] MEDS: PROTONIX 40 MG PO ×2 (08:52→19:43)
[2025-04-23 11:03] VITALS: BP 102/49
--- NOTE | 2025-04-23 11:29 | W.PN.HOSP.TC ---
Today's Communication/Plan
-
Continue IV diuretics
Cardiology evaluation
Assessment / Plan
Assessment / Plan
49-year-old female dyspnea on exertion. 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 Patient has been having some shortness of breath for the past couple days. She states that she
usually weighs herself but has been construction a lot going on in the house so she was not able to do it. She also saw her ankles were slightly puffy. No chest pain. No fever
Echo 12/03/2024-D transposition of the great arteries status post mustard repair and stents to baffle. LV is normal size and function EF 60%. Septal straightening and paradoxical motion. Pacing wire identified atrial lead may be prolapsing into
morphologic left ventricle. RV is top normal size and hypertrophied with preserved systolic function. Aortic valve connected to the morphologic RV sclerotic with trace AI. Pulmonic valve connected to morphology LV is sclerotic with trace
pulmonary regurgitation flow in the baffles is normal and stents are patent. Study similar to July 2024.
Awake alert Oriented
Cardiovascular system S1-S2 appreciated
Chest clear to auscultation
Abdomen soft and nontender
No pedal edema noted at this time
# Acute on chronic HFpEF
Fluid status improved. Patient also feels slightly better now
Continue on telemetry
Continue Lasix 20 mg IV twice daily
Daily weights and intake output charting
Cardiology evaluation requested
OP Cardiology- Dr. Gómez Hunter at , and also Dr. Monique Louise
Continue losartan, metoprolol, Aldactone
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
More information from previous records
'History of surgery with balloon septostomy and Juhi Daiana shunt at 2 days of age
Mustard procedure with atrial baffling at 10 months of age
Epicardial right ventricular lead placement at 8-10
Lead was switched and permanent pacemaker with abdominal generator intracardiac atrial lead system placed 2007
History of SVC and IVC stents for presumed anastomotic stenosis'
# Medtronic Pacemaker
# History of VT's
# Restrictive lung disease secondary to kyphosis
Asthma -continue Trelegy Ellipta or equivalent
Chronically elevated right hemidiaphragm
Follows up with Dr. Hood NJBassam and at .
# Diabetes with neuropathy-continue metformin, Accu-Cheks and sliding scale coverage
Continue Invokana or equivalent, also on Ozempic on Sundays
# Vestibular migraines-on Emgality
# History of CVA-continue Crestor
# Chronic thrombocytopenia-Outpatient hematology follow-up
# Hyperlipidemia-continue Crestor
# History of pheochromocytoma status postresection
# History of portal vein thrombosis per chart.
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 Mcgee at as well as a seat joiner Dr. Stack at [facility]
# GERD-continue PPI twice daily
# Anxiety and panic disorder-continue sertraline
# DVT prophylaxis Lovenox
# Full code
Part of this note was created using voice recognition system. Occasional wrong word or��sound alike� substitutions may have inadvertently occurred due to the inherent limitations of voice recognition software. If noted kindly bring it to my
attention for correction.
Anticipated Discharge: 24 - 48 hours
Subjective/Interval History
-
Date of Service: April 23, 2025
Objective Data
-
Labs:
Laboratory Results
04/23/25
05:54
Sodium 139
Potassium 3.8
Chloride 101
Carbon Dioxide 27
BUN 16
Creatinine 0.6
Glucose 109 H
Calcium 9.0
Vital Signs:
Vital Signs
Temp Pulse Resp BP Pulse Ox
97.8 F 76 18 102/49 97
04/23/25 11:03 04/23/25 11:03 04/23/25 11:03 04/23/25 11:03 04/23/25 11:03
I&O
04/22/25 04/23/25 04/24/25
06:59 06:59 06:59
Intake Total 480 / 480
Output Total 890 / 890
Balance -410 / -410
[2025-04-23 15:16] VITALS: BP 94/51
--- NOTE | 2025-04-23 15:57 | CON.CAR ---
Addendum entered and electronically signed by Júnior Jha MD 04/23/25 17:24:
I saw and examined the patient.
The Therapist Speech's note was reviewed and I agree with the note.
Comment: Briefly, 49-year-old woman past medical history of transposition of the great vessels status post Mustard procedure who presents with worsening dyspnea fatigue and lower extremity edema concerning for acute on chronic heart failure.
Patient received a dose of IV Lasix and tells me following this she has had some improvement in her symptoms
proBNP is mildly elevated but not as high as prior admissions
Weight is actually down compared to previous recorded weights
IV Lasix for now, suspect that we can transition back to oral in the next 24 to 48 hours
Continue home beta-kadie, ARB MRA, SGLT2
Rest per Shira Hester
Original Note:
Consultation
Consultation Request
Date/Time Consultation Requested: 04/23/2025 at 1111
Date/Time Consultation Performed: 04/23/2025 at 1511
Requesting Provider: Dr. Benjamin
Performing Provider: Dr. Rodríguez
Reason for Consultation: Acute HF
Medical History
-
History of Present Illness:
Patient came to [facility] ER last night with SOB, dizziness and fatigue for the last week and was admitted with possible acute HF. Patient has a known history of congenital heart disease as outlined above. Patient follows with our cardiology group for
local care but then also follows with Dr. Gómez Hunter at [facility] and last saw him in February and had a workup for symptoms of increased LE edema and SOB. Patient had echo with bubble study as noted above. She also had a CT of the chest that
showed no evidence of PE and also there was a stable appearance of the arterial switch repair of the transposition of the great arteries. The patient says that eventually she was started on the higher dose of Lasix, 40 mg daily, and this seemed to
overall improve her symptoms. Patient indicates that she got the impression that the goal was to get her back to a maintenance dose of Lasix 20 mg daily until she was ordered to get repeat blood work to follow kidney function and if any worsening
then she thinks she was going to be changed back to Lasix 20 mg daily, but she did not get to that point because she went on vacation 2 weeks ago and then over the last week leading up to this admission she was feeling more tired, felt like she was
losing her voice and noticed increased LE edema and all of the symptoms were concerning for acute HF and so she came to the ER yesterday. Patient was started on Lasix 40 mg IV daily and weight is down 2 lbs overnight. Patient was also able to
share with me her patient portal to get the echo and CT results that are outlined by me within this note and in addition she got me lab results and all 02/15/2025 her NT proBNP level was 1006 and on admission through the ER last night the level was
740. Overall patient feels like her LE edema, specifically in her calves, has improved.
PMH:
Chronic HFrEF
RV is systemic ventricle and RVEF was 45% by echo 02/15/25
Congenital heart disease
Transposition of great vessels.
Balloon septostomy, age 2 days
Juhi Daiana shunt, age 2 months
Mustard procedure with atrial baffling, age 10 months
Epicardial right ventricular lead placement, age 11, with redundant second lead. First lead fractured with switch to second lead s/p PPM with abdominal generator intracardiac atrial lead system placed approximately 2007
Medtronic pacemaker
Restrictive lung disease felt to be secondary to kyphosis
Chronically elevated right hemidiaphragm
Chronic thrombocytopenia
Type 2 diabetes
Migraines
Cognitive impairment
h/o CVA
Diabetic neuropathy
History of pheochromocytoma s/p resection
History of portal vein thrombosis
Hepatic fibrosis/cirrhosis?
SVC and IVC stents for presumed anastomotic stenosis
Past Medical History
Past Medical History: Other (in HPI)
Past Surgical History: Tonsilectomy and Other (in HPI as well)
Social History
Tobacco: Non-Smoker
Alcohol: None
Drug: None
Personal:
Living: With Family
Employment: Employed
Family History
Family History: CAD, Cancer, Diabetes and Hypertension
Allergies / Home Medications
Allergy/AdvReac Type Severity Reaction Status Date / Time
codeine Allergy Unknown Verified 04/22/25 16:49
meperidine Allergy Unknown Verified 04/22/25 16:49
pineapple (Pineapple) Allergy Unknown Verified 04/22/25 16:49
�Medication �Instructions �Recorded �Confirmed �Type
metoprolol succinate 25 mg 25 mg PO HS Blood Pressure 07/06/11 04/22/25 History
tablet,extended release 24 hr
canagliflozin 100 mg tablet 100 mg PO DAILY Diabetes 12/20/18 04/22/25 History
(Invokana)
spironolactone 25 mg tablet 12.5 mg PO HS Fluid 12/20/22 04/22/25 History
Retention/Swelling
fluticasone fur. 100 mcg-umeclid 1 inh inhalation R HS 08/05/24 04/22/25 History
62.5 mcg-vilant 25 mcg Lung/Breathing Issues
inhalat.powder (Trelegy Ellipta)
galcanezumab-gnlm 120 mg/mL 120 mg SC QMONTH migraine 08/05/24 04/22/25 History
subcutaneous pen injector
(Emgality Pen)
metformin 500 mg tablet,extended 500 mg PO BID Diabetes 08/05/24 04/22/25 History
release 24 hr
omeprazole 40 mg capsule,delayed 40 mg PO BID Gastrointestinal Issue 08/05/24 04/22/25 History
release
ondansetron HCl 8 mg tablet 8 mg PO BIDPRN PRN nausea/vomiting 08/05/24 04/22/25 History
sertraline 100 mg tablet 200 mg PO HS Depression 08/05/24 04/22/25 History
calcium carbonate (Tums) 200 mg PO BIDPRN PRN gerd 04/22/25 04/22/25 History
furosemide 20 mg tablet 40 mg PO DAILY Fluid 04/22/25 04/22/25 History
retention/Swelling
losartan 25 mg tablet 25 mg PO HS Blood Pressure 04/22/25 04/22/25 History
polysaccharide iron complex 150 mg 150 mg PO HS 04/22/25 04/22/25 History
iron capsule (Ferrex)
rosuvastatin 10 mg tablet (Crestor) 10 mg PO HS High Cholesterol 04/22/25 04/22/25 History
semaglutide 0.25 mg or 0.5 mg (2 0.25 mg SC MACIAS Diabetes 04/22/25 04/22/25 History
mg/3 mL) subcutaneous pen injector
(Ozempic)
Review of Systems
-
History Source: Patient
All other systems: Negative unless noted
Physical Exam
Vital Signs
Temp Pulse Resp BP Pulse Ox
98.1 F 80 16 94/51 93
04/23/25 15:16 04/23/25 15:16 04/23/25 15:16 04/23/25 15:16 04/23/25 15:16
GEN: NAD. AAOx3
HEENT: EOMI, MMM
LUNGS: RA. CTA B/L without wheeze
CV: A paced in SR on tele. Reg, S1/S2, no murmur, no obvious RV lift
ABD: ND
EXT: No edema B/L
NEURO: Gross non-focal
SKIN: No rash
Lab Results
04/22/25 17:01
04/23/25 05:54
Troponin I < 0.012 ng/ml 04/22/25 18:34
Ysz-W-Tjnzrjmigwb Pept 740 pg/ml 04/22/25 17:01
Impression / Plan
-
PCP: Dr. Headley
Cardiology: Dr. Gómez Hunter at [facility],
Impression:
Admitted with acute HFrEF
RV is systemic ventricle and RVEF was 45% by echo 02/15/25
Congenital heart disease
Transposition of great vessels.
Balloon septostomy, age 2 days
Juhi Daiana shunt, age 2 months
Mustard procedure with atrial baffling, age 10 months
Epicardial right ventricular lead placement, age 11, with redundant second lead. First lead fractured with switch to second lead s/p PPM with abdominal generator intracardiac atrial lead system placed approximately 2007
Medtronic pacemaker
Restrictive lung disease felt to be secondary to kyphosis
Chronically elevated right hemidiaphragm
Chronic thrombocytopenia
Type 2 diabetes
Migraines
Cognitive impairment
h/o CVA
Diabetic neuropathy
History of pheochromocytoma s/p resection
History of portal vein thrombosis
Hepatic fibrosis/cirrhosis?
SVC and IVC stents for presumed anastomotic stenosis
Echo 08/07/24: LV is sub pulmonic and dilated, mild LVH with a pacing wire. LVEF is 60-65%. RVH and enlarged RV size with preserved systolic function, the RV is systemic. Mildly dilated RA. No MR. Mitral valve is sub pulmonary. No and trace aortic
regurgitation, aortic valve arises anteriorly from the systemic right ventricle, mod TR with PAP 75-80 mmHg assuming a right atrial pressure of 3 mmHg. The tricuspid valve is systemic. No evidence of flow acceleration within the pulmonary venous
baffle. There is a stent in the superior systemic venous baffle. There is a stent in the inferior systemic venous baffle also. No obvious baffle leak is seen on color Doppler. Compared to previous echo 04/21/23, the pulmonary artery pressures have
increased from 55 to 75 mmHg. Otherwise no significant change.
Echo 12/03/2024: EF 60%. There is septal straightening and paradoxical motion. Pacing wire is identified, which is an atrial lead but may be prolapsing into the morphologic left ventricle. Morphologic (systemic) right ventricle is top normal in size
and hypertrophied with preserved systolic function. The aortic valve connected to the morphologic right ventricle is sclerotic with trace aortic regurgitation. The pulmonic valve connected to the morphologic left ventricle is sclerotic with trace
pulmonic regurgitation. Flow in the baffles is normal and stents are patent, Tricuspid valve is mildly thickened but opens normally. Mild tricuspid regurgitation. The systolic gradient across the tricuspid valve is 66 mmHg
Echo bubble study 02/15/2025: [facility] study, D�TGA s/p atrial switch (mustard operation), LV has normal end-diastolic diameter, paradoxical septal motion due to RV pressure overload otherwise LV godinez are normal, LVEF 55%, RV hypertrophy the RV is
moderately dilated and borderline wall motion, the RV is the systemic ventricle with an RVEF of 45%, aortic root mildly dilated 3.7 cm, mild aortic regurgitation, mild MR, mild to moderate TR, mild pulmonic regurgitation, agitated saline did not
show intracardiac or intrapulmonary shunt, RA pressure normal, too little MR to estimate PASP, trace pericardial effusion, there is a stent in the SVC portion of the systemic venous baffle and there is flow acceleration with mildly elevated
gradients that mean gradient 3 mmHg, the pulmonary venous baffle appears nonobstructive with low velocity forward flow and a mean gradient of less than 1 mmHg without baffle leakage, compared to echo 09/11/2024 there is no significant change
Recommendations:
-Patient came to [facility] ER last night with SOB, dizziness and fatigue for the last week and was admitted with possible acute HF. Patient has a known history of congenital heart disease as outlined above. Patient follows with our cardiology group
for local care but then also follows with Dr. Gómez Hunter at [facility] and last saw him in February and had a workup for symptoms of increased LE edema and SOB. Patient had echo with bubble study as noted above. She also had a CT of the chest that
showed no evidence of PE and also there was a stable appearance of the arterial switch repair of the transposition of the great arteries. The patient says that eventually she was started on the higher dose of Lasix, 40 mg daily, and this seemed to
overall improve her symptoms. Patient indicates that she got the impression that the goal was to get her back to a maintenance dose of Lasix 20 mg daily until she was ordered to get repeat blood work to follow kidney function and if any worsening
then she thinks she was going to be changed back to Lasix 20 mg daily, but she did not get to that point because she went on vacation 2 weeks ago and then over the last week leading up to this admission she was feeling more tired, felt like she was
losing her voice and noticed increased LE edema and all of the symptoms were concerning for acute HF and so she came to the ER yesterday. Patient was started on Lasix 40 mg IV daily and weight is down 2 lbs overnight. Patient was also able to
share with me her patient portal to get the echo and CT results that are outlined by me within this note and in addition she got me lab results and all 02/15/2025 her NT proBNP level was 1006 and on admission through the ER last night the level was
740. Overall patient feels like her LE edema, specifically in her calves, has improved.
-ECG reviewed by me is a paced with what looks to be SR.
-Patient admitted with likely acute heart failure and known congenital heart disease. Her RV is her systemic ventricle and EF was 45% by echo at [facility] on 02/15/2025.
-Continue Lasix 40 mg IV daily, patient has already noted symptomatic improvement and this correlates with weight loss on daily checks. Patient was taking Lasix 40 mg PO daily prior to admission.
-Outpatient dose of Toprol XL 25 mg HS has been continued
-Outpatient dose of losartan 25 mg daily has been continued
-Outpatient dose of spironolactone 12.5 mg HS has been continued
-Not clear that we need to repeat echo, she just had echo bubble study performed at her adult congenital specialist office and at [facility] on 02/15/2025 and results were obtained and reviewed as above by me
-Telemetry reviewed by me is a paced and looks to be SR. Patient has a history of PAT. I cannot see that there was a device check performed in the ER, I will arrange for [employer] device check in a.m.
--- NOTE | 2025-04-23 16:12 | CM ---
Alert awake oriented patient who lives with her Trevor in a 1 story home with 2 steps to enter.She is independent in activates of daily living.She does drive .She uses oxygen and CPAP from [employer] at home at night .Observation letter given
reviewed signed on chart
No VN in past . No SNF hx
Pharmacy [facility]
PCP Dr Headley
PLAN Home with no needs
[2025-04-23 19:33] VITALS: BP 102/67
[2025-04-23] MEDS: TOPROL XL 25 MG PO (19:42)
[2025-04-23] MEDS: ALDACTONE 12.5 MG PO (19:43)
[2025-04-23] MEDS: CRESTOR 10 MG PO (19:43)
[2025-04-23] MEDS: ZOFRAN 8 MG PO (20:37)
[2025-04-23] MEDS: COZAAR 25 MG PO (20:37)
[2025-04-23] MEDS: NON-FORMULARY ITEM 1 INH INH (20:58)
[2025-04-23] MEDS: ZOLOFT 200 MG PO (22:36)
[2025-04-23] MEDS: TUMS CHEWABLE TABLET 200 MG PO (22:36)
[2025-04-23 23:38] VITALS: BP 92/47
[2025-04-24 03:35] VITALS: BP 94/53
[2025-04-24 06:00] VITALS: BMI 24.2
[2025-04-24 07:10] LABS: Blood Urea Nitrogen 17 mg/dl (7-17); Calcium 9.3 mg/dl (8.4-10.2); Carbon Dioxide 28 mmol/L (22-30); Chloride 102 mmol/L (98-107); Estimated Creatinine Clearance 112 ml/min; Glucose 113 mg/dl (70-99); Hematocrit 37.4 % (37.0-47.0); Hemoglobin 12.7 g/dL (12.0-16.0); Mean Corpuscular Hgb 32.6 pg (27.0-31.0); Mean Corpuscular Volume 96.1 fL (81.0-99.0); Mean Platelet Volume 11.1 fL (7.4-10.4); Platelet Count 73 10^3/uL (130-400); Potassium 3.7 mmol/L (3.5-5.1); Red Blood Cell Count 3.89 10^6/uL (4.20-5.40); Red Cell Dist. Width 14.6 % (11.5-14.5); Sodium 140 mmol/L (135-145); White Blood Cell Count 5.2 10^3/uL (4.8-10.8); eGFR > 60.00
[2025-04-24 07:52] VITALS: BP 88/56
[2025-04-24] MEDS: PROTONIX 40 MG PO (09:33)
[2025-04-24] MEDS: LASIX IV (09:34)
[2025-04-24] MEDS: TYLENOL 650 MG PO (09:34)
[2025-04-24] MEDS: GLUCOPHAGE XR EXTENDED RELEASE 500 MG PO (09:34)
[2025-04-24] MEDS: FARXIGA 10 MG PO (09:35)
--- NOTE | 2025-04-24 10:26 | W.PN.CARDCBS ---
Today's Communication / Plan
-
Plan for one additional IV lasix dose this AM prior to discharge
She should follow-up with her primary movie theater usher at [facility]
Impression / Plan
-
PCP: Dr. Headley
Cardiology: Dr. Gómez Hunter at [facility] [place],
Impression:
Admitted with acute HFrEF
RV is systemic ventricle and RVEF was 45% by echo 02/15/25
Congenital heart disease
Transposition of great vessels.
Balloon septostomy, age 2 days
Juhi Daiana shunt, age 2 months
Mustard procedure with atrial baffling, age 10 months
Epicardial right ventricular lead placement, age 11, with redundant second lead. First lead fractured with switch to second lead s/p PPM with abdominal generator intracardiac atrial lead system placed approximately 2007
Medtronic pacemaker
Restrictive lung disease felt to be secondary to kyphosis
Chronically elevated right hemidiaphragm
Chronic thrombocytopenia
Type 2 diabetes
Migraines
Cognitive impairment
h/o CVA
Diabetic neuropathy
History of pheochromocytoma s/p resection
History of portal vein thrombosis
Hepatic fibrosis/cirrhosis?
SVC and IVC stents for presumed anastomotic stenosis
Echo 08/07/24: LV is sub pulmonic and dilated, mild LVH with a pacing wire. LVEF is 60-65%. RVH and enlarged RV size with preserved systolic function, the RV is systemic. Mildly dilated RA. No MR. Mitral valve is sub pulmonary. No and trace aortic
regurgitation, aortic valve arises anteriorly from the systemic right ventricle, mod TR with PAP 75-80 mmHg assuming a right atrial pressure of 3 mmHg. The tricuspid valve is systemic. No evidence of flow acceleration within the pulmonary venous
baffle. There is a stent in the superior systemic venous baffle. There is a stent in the inferior systemic venous baffle also. No obvious baffle leak is seen on color Doppler. Compared to previous echo 04/21/23, the pulmonary artery pressures have
increased from 55 to 75 mmHg. Otherwise no significant change.
Echo 12/03/2024: EF 60%. There is septal straightening and paradoxical motion. Pacing wire is identified, which is an atrial lead but may be prolapsing into the morphologic left ventricle. Morphologic (systemic) right ventricle is top normal in size
and hypertrophied with preserved systolic function. The aortic valve connected to the morphologic right ventricle is sclerotic with trace aortic regurgitation. The pulmonic valve connected to the morphologic left ventricle is sclerotic with trace
pulmonic regurgitation. Flow in the baffles is normal and stents are patent, Tricuspid valve is mildly thickened but opens normally. Mild tricuspid regurgitation. The systolic gradient across the tricuspid valve is 66 mmHg
Echo bubble study 02/15/2025: [facility] study, [facility] s/p atrial switch (mustard operation), LV has normal end-diastolic diameter, paradoxical septal motion due to RV pressure overload otherwise LV godinez are normal, LVEF 55%, RV hypertrophy the RV is
moderately dilated and borderline wall motion, the RV is the systemic ventricle with an RVEF of 45%, aortic root mildly dilated 3.7 cm, mild aortic regurgitation, mild MR, mild to moderate TR, mild pulmonic regurgitation, agitated saline did not
show intracardiac or intrapulmonary shunt, RA pressure normal, too little MR to estimate PASP, trace pericardial effusion, there is a stent in the SVC portion of the systemic venous baffle and there is flow acceleration with mildly elevated
gradients that mean gradient 3 mmHg, the pulmonary venous baffle appears nonobstructive with low velocity forward flow and a mean gradient of less than 1 mmHg without baffle leakage, compared to echo 09/11/2024 there is no significant change
Patient came to [facility] ER with SOB, dizziness and fatigue for the last week and was admitted with possible acute HF. Patient has a known history of congenital heart disease as outlined above. Patient follows with our cardiology group for local care
but then also follows with Dr. Gómez Hunter at [facility] and last saw him in February and had a workup for symptoms of increased LE edema and SOB. Patient had echo with bubble study as noted above. She also had a CT of the chest that showed no
evidence of PE and also there was a stable appearance of the arterial switch repair of the transposition of the great arteries. The patient says that eventually she was started on the higher dose of Lasix, 40 mg daily, and this seemed to overall
improve her symptoms. Patient indicates that she got the impression that the goal was to get her back to a maintenance dose of Lasix 20 mg daily until she was ordered to get repeat blood work to follow kidney function and if any worsening then she
thinks she was going to be changed back to Lasix 20 mg daily, but she did not get to that point because she went on vacation 2 weeks ago and then over the last week leading up to this admission she was feeling more tired, felt like she was losing
her voice and noticed increased LE edema and all of the symptoms were concerning for acute HF and so she came to the ER yesterday. Patient was started on Lasix 40 mg IV daily and weight is down 2 lbs overnight. Patient was also able to share with
me her patient portal to get the echo and CT results that are outlined by me within this note and in addition she got me lab results and all 02/15/2025 her NT proBNP level was 1006 and on admission through the ER last night the level was 740. Overall
patient feels like her LE edema, specifically in her calves, has improved.
Recommendations:
-Patient admitted with likely acute heart failure and known congenital heart disease. Her RV is her systemic ventricle and EF was 45% by echo at [facility] on 02/15/2025.
-Overall she is feeling better, appears euvolemic on exam and is breathing comfortably on room air
-Recommend one additional dose of Lasix 40 mg IV this AM and can be discharged on Lasix 40 mg PO daily to start tomorrow
-Continue outpatient Toprol XL 25 mg HS, losartan 25 mg daily and spironolactone 12.5 mg as well as SGLT2
Stable for discharge after one additional IV lasix dose this AM from my perspective, she should follow-up with her primary movie theater usher at [facility]
Progress Note - Capsule Machine Operator
Subjective
Date of Service: April 24, 2025
Overall feeling well this morning. No dyspnea. No lightheadedness or dizziness.
Objective
Labs:
04/24/25 05:51
04/24/25 05:51
Labs
Hgb 12.7 g/dL (12.0-16.0) 04/24/25 05:51
Hct 37.4 % (37.0-47.0) 04/24/25 05:51
Plt Count 73 10^3/uL (130-400) L 04/24/25 05:51
Sodium 140 mmol/L (135-145) 04/24/25 05:51
Potassium 3.7 mmol/L (3.5-5.1) 04/24/25 05:51
BUN 17 mg/dl (7-17) 04/24/25 05:51
Creatinine 0.6 mg/dL (0.6-1.0) 04/24/25 05:51
Glucose 113 mg/dl (70-99) H 04/24/25 05:51
Troponins
04/22/25
18:34
Troponin I < 0.012
Vital Signs and I&O:
Vital Signs
Temp Pulse Resp BP Pulse Ox
97.4 F 79 16 88/56 96
04/24/25 07:52 04/24/25 07:52 04/24/25 07:52 04/24/25 07:52 04/24/25 07:52
Vital Signs
Temp Pulse Resp BP Pulse Ox
97.4 F 79 16 88/56 96
04/24/25 07:52 04/24/25 07:52 04/24/25 07:52 04/24/25 07:52 04/24/25 07:52
Intake & Output
04/22/25 04/23/25 04/24/25 04/25/25
06:59 06:59 06:59 06:59
Intake Total 480 / 480 1690 / 1690
Output Total 890 / 890 2350 / 2350
Balance -410 / -410 -660 / -660
Physical Exam
Physical Exam
Gen: NAD, AAOx3
HEENT: NC/AT, sclera anicteric
Neck: No JVD
CV: RRR, NL s1/s2, no M/R/G
Lungs: CTAB on RA
Abd: S/ND
Ext: No LE edema
Skin: Warm, dry
Neuro: Non-focal
[2025-04-24 11:10] VITALS: BP 101/59
[2025-04-24] MEDS: LASIX 40 MG IV (13:19)
--- NOTE | 2025-04-24 13:35 | W.PN.HOSP.TC ---
Addendum entered and electronically signed by Danyelle Benjamin MD 04/24/25 15:39:
device interrogated and OK per cards.
OK for discharge
Original Note:
Today's Communication/Plan
-
Discharge after device check
Assessment / Plan
Assessment / Plan
49-year-old female dyspnea on exertion. 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 Patient has been having some shortness of breath for the past couple days. She states that she
usually weighs herself but has been construction a lot going on in the house so she was not able to do it. She also saw her ankles were slightly puffy. No chest pain. No fever
Echo 12/03/2024-D transposition of the great arteries status post mustard repair and stents to baffle. LV is normal size and function EF 60%. Septal straightening and paradoxical motion. Pacing wire identified atrial lead may be prolapsing into
morphologic left ventricle. RV is top normal size and hypertrophied with preserved systolic function. Aortic valve connected to the morphologic RV sclerotic with trace AI. Pulmonic valve connected to morphology LV is sclerotic with trace
pulmonary regurgitation flow in the baffles is normal and stents are patent. Study similar to July 2024.
Obtained from cardiology records
Echo with bubble study 02/15/2025 [facility] s/p atrial switch (mustard operation), LV has normal end-diastolic diameter, paradoxical septal motion due to RV pressure overload otherwise LV godinez are normal, LVEF 55%, RV hypertrophy the RV is moderately
dilated and borderline wall motion, the RV is the systemic ventricle with an RVEF of 45%, aortic root mildly dilated 3.7 cm, mild aortic regurgitation, mild MR, mild to moderate TR, mild pulmonic regurgitation, agitated saline did not show
intracardiac or intrapulmonary shunt, RA pressure normal, too little MR to estimate PASP, trace pericardial effusion, there is a stent in the SVC portion of the systemic venous baffle and there is flow acceleration with mildly elevated gradients
that mean gradient 3 mmHg, the pulmonary venous baffle appears nonobstructive with low velocity forward flow and a mean gradient of less than 1 mmHg without baffle leakage, compared to echo 09/11/2024 there is no significant change
Awake alert Oriented
Cardiovascular system S1-S2 appreciated
Chest clear to auscultation
Abdomen soft and nontender
No pedal edema noted at this time
# Acute on chronic HFrEF
Fluid status improved. Patient also feels better now
Continue on telemetry
40 mg lasix now
Daily weights and intake output charting
Cardiology evaluation requested
OP Cardiology- Dr. Gómez Hunter at [facility] [employer] [facility] [place], and also Dr. Monique Louise
Continue losartan, metoprolol, Aldactone
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
More information from previous records
'History of surgery with balloon septostomy and Juhi Daiana shunt at 2 days of age
Mustard procedure with atrial baffling at 10 months of age
Epicardial right ventricular lead placement at 8-10
Lead was switched and permanent pacemaker with abdominal generator intracardiac atrial lead system placed 2007
History of SVC and IVC stents for presumed anastomotic stenosis'
# Medtronic Pacemaker
# History of VT's
# Restrictive lung disease secondary to kyphosis
Asthma -continue Trelegy Ellipta or equivalent
Chronically elevated right hemidiaphragm
Follows up with Dr. Hood MABassam and at .
# Diabetes with neuropathy-continue metformin, Accu-Cheks and sliding scale coverage
Continue Invokana or equivalent, also on Ozempic on Sundays
# Vestibular migraines-on Emgality
# History of CVA-continue Crestor
# Chronic thrombocytopenia-Outpatient hematology follow-up
# Hyperlipidemia-continue Crestor
# History of pheochromocytoma status postresection
# History of portal vein thrombosis per chart.
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 Mcgee at as well as a motor vehicle operator road supervisor Dr. Stack at [facility]
# GERD-continue PPI twice daily
# Anxiety and panic disorder-continue sertraline
# DVT prophylaxis Lovenox
# Full code
D/W RN
D/W Cardiology
OK for discharge after Lasix and device check.
Part of this note was created using voice recognition system. Occasional wrong word or��sound alike� substitutions may have inadvertently occurred due to the inherent limitations of voice recognition software. If noted kindly bring it to my
attention for correction.
More than 30 minutes spent in discharge including
Final examination of the patient
Summarizing hospital stay
Instructions for continuing care to all relevant caregivers
Preparation of discharge records, prescriptions, and referral forms
Total time spent (in minutes): 36 min
Anticipated Discharge: Today
Subjective/Interval History
-
Date of Service: April 24, 2025
Objective Data
-
Labs:
Laboratory Results
04/24/25
05:51
WBC 5.2
Hgb 12.7
Hct 37.4
Plt Count 73 L
Sodium 140
Potassium 3.7
Chloride 102
Carbon Dioxide 28
BUN 17
Creatinine 0.6
Glucose 113 H
Calcium 9.3
Vital Signs:
Vital Signs
Temp Pulse Resp BP Pulse Ox
97.7 F 100 14 101/59 96
04/24/25 11:10 04/24/25 11:10 04/24/25 11:10 04/24/25 13:19 04/24/25 11:10
I&O
04/23/25 04/24/25 04/25/25
06:59 06:59 06:59
Intake Total 480 / 480 1690 / 1690
Output Total 890 / 890 2350 / 2350
Balance -410 / -410 -660 / -660
--- NOTE | 2025-04-24 13:42 | W.DS.TRANS ---
Addendum entered and electronically signed by Danyelle Benjamin MD 04/24/25 14:12:
Dictation- [id number]
Original Note:
DC Summary - Combustion Analyst
-
Discharge Instructions:
Discharge Diagnosis/Procedures CHF
History of surgery for transposition of great
vessels
Pacemaker
Restrictive lung disease
Asthma
Diabetes with neuropathy
Vestibular migraines
Thrombocytopenia
High cholesterol
Cirrhosis
GERD
Anxiety
Diet 2 Gram Sodium,Restrict fluids to 64 oz
Activity As tolerated
Driving Restrictions As prior to admission
Specialty Instructions Weigh Daily
Instructions: *DCA Heart Failure Instructions
Stand-Alone Forms:
Changes to Home Medications: No
Discharge Medications:
DC Medications w/original date entered in [employer]
metoprolol succinate 25 mg tablet,extended release 24 hr 25 mg PO HS Blood Pressure 07/06/11
canagliflozin 100 mg tablet (Invokana) 100 mg PO DAILY Diabetes 12/20/18
spironolactone 25 mg tablet 12.5 mg PO HS Fluid Retention/Swelling 12/20/22
fluticasone fur. 100 mcg-umeclid 62.5 mcg-vilant 25 mcg inhalat.powder (Trelegy Ellipta) 1 inh inhalation R HS Lung/Breathing Issues 08/05/24
galcanezumab-gnlm 120 mg/mL subcutaneous pen injector (Emgality Pen) 120 mg SC QMONTH migraine 08/05/24
metformin 500 mg tablet,extended release 24 hr 500 mg PO BID Diabetes 08/05/24
omeprazole 40 mg capsule,delayed release 40 mg PO BID Gastrointestinal Issue 08/05/24
ondansetron HCl 8 mg tablet 8 mg PO BIDPRN PRN nausea/vomiting 08/05/24
sertraline 100 mg tablet 200 mg PO HS Depression 08/05/24
calcium carbonate (Tums) 200 mg PO BIDPRN PRN gerd 04/22/25
furosemide 20 mg tablet 40 mg PO DAILY Fluid retention/Swelling 04/22/25
losartan 25 mg tablet 25 mg PO HS Blood Pressure 04/22/25
rosuvastatin 10 mg tablet (Crestor) 10 mg PO HS High Cholesterol 04/22/25
semaglutide 0.25 mg or 0.5 mg (2 mg/3 mL) subcutaneous pen injector (Ozempic) 0.25 mg SC MACIAS Diabetes 04/22/25
polysaccharide iron complex 150 mg iron capsule (Ferrex) 150 mg PO HS anemia #0 caps 04/24/25
Home Medication Changes
Pending Results: No
--- NOTE | 2025-04-24 13:59 | CM ---
Patient seen at bedside on . Patient stated that she is for discharge home. Patient confirmed OBS and has a ride home. No needs anticipated at this time. CM will continue to follow for discharge planning needs.
Plan; home with no needs.
[2025-04-24 15:57] VITALS: BP 100/65
--- NOTE | 2025-04-25 15:33 | W.HF.CON ---
Heart Failure
- LV Function
Left ventricular function study result: LV Ejection fraction 41-49% (RVEF)
Ejection Fraction Percentage: 45
- ARNI
Patient already on ARNI: No
Heart Failure ARNI Not Indicated: LV Ejection Fraction >/= 40%
- ACEI/ARB
Patient already on ACEI/ARB: Yes
- Beta Clara
Patient already on Evidence Based Beta Clara: Yes
- Mineralocorticord Receptor Antagonist
Patient already on MRA: Yes
- SGLT-2 Inhibitor
Patient already on SGLT-2 Inhibitor: Yes
- NYHA CHF Classification
NYHA CHF Classification Level: Class III - Symptoms w/ min exertion, interferes w/ nml daily activity
- ACC/AHA Stage
ACC/AHA Stage: Stage C: Symptomatic Heart Failure
== END 2025-04-24 16:40 | disposition home or self-care (01) | DRG 291 ==
LOC: 4 EAST ACU 12:44
PROVIDERS: Emergency Medicine; ADMITTING PHYSICIAN Internal Medicine; ATTENDING PHYSICIAN Hospitalist; CONSULT PHYSICIAN Internal Medicine Cardiovascular Disease; EMERGENCY PHYSICIAN Emergency Medicine; FAMILY PHYSICIAN Internal Medicine
PROC: 4B02XSZ Measurement of Cardiac Pacemaker, External Approach (ICD-10-PCS; 2025-04-24)
DX: I50.23 Acute on chronic systolic (congestive) heart failure (principal); Q20.3 Discordant ventriculoarterial connection; I27.0 Primary pulmonary hypertension; J98.4 Other disorders of lung; J45.909 Unspecified asthma, uncomplicated; E11.40 Type 2 diabetes mellitus with diabetic neuropathy, unspecified; Z86.73 Personal history of transient ischemic attack (TIA), and cerebral infarction without residual deficits; D69.6 Thrombocytopenia, unspecified; K21.9 Gastro-esophageal reflux disease without esophagitis; E78.5 Hyperlipidemia, unspecified; Z86.718 Personal history of other venous thrombosis and embolism; K74.60 Unspecified cirrhosis of liver; F41.9 Anxiety disorder, unspecified; M41.9 Scoliosis, unspecified; E78.00 Pure hypercholesterolemia, unspecified; F32.A Depression, unspecified; G43.809 Other migraine, not intractable, without status migrainosus; I49.5 Sick sinus syndrome; Z79.84 Long term (current) use of oral hypoglycemic drugs; Z79.899 Other long term (current) drug therapy; Z88.5 Allergy status to narcotic agent; Z95.0 Presence of cardiac pacemaker; Z95.5 Presence of coronary angioplasty implant and graft; Z11.52 Encounter for screening for COVID-19
CPT/HCPCS: 71046; 80048; 80053; 83735; 83880; 84145; 84443; 84484; 85025; 85027; 87502; 87811; 93005; 94640; 99285

== ENCOUNTER → 2025-07-08 17:06 | Outpatient (REF) | payer OTHER, SELFPAY | LOC: WDC 17:06 | PROVIDERS: ATTENDING PHYSICIAN Obstetrics & Gynecology; FAMILY PHYSICIAN Internal Medicine | DX: Z12.31 Encounter for screening mammogram for malignant neoplasm of breast (principal) | CPT/HCPCS: 77063; 77067 ==

== ENCOUNTER → 2025-07-12 07:56 | Outpatient (REF) | payer OTHER, SELFPAY | LOC: WDC 07:56 | PROVIDERS: ATTENDING PHYSICIAN Obstetrics & Gynecology | DX: N64.4 Mastodynia (principal) | CPT/HCPCS: 76642 ==